=== PATIENT | female | born 1940 | race Caucasian/White ===

== ENCOUNTER 2018-03-13 15:58 | Inpatient (IN) ==
[2018-03-13 17:03] LABS: Hematocrit 39.8 % (35.3-44.9); Hemoglobin 13.5 g/dL (11.5-15.4); Mean Corpuscular HGB Conc 33.9 g/dL (31.6-35.5); Mean Corpuscular Hemoglobin 28.1 pg (28.0-33.3); Mean Corpuscular Volume 82.7 fL (83.0-100.0); Mean Platelet Volume 10.5 fL (9.4-12.4); Platelet Count 223 K/mcL (140-400); Red Blood Count 4.81 M/mcL (3.82-4.97); Red Cell Distribution Width 14.1 % (11.5-14.5)
[2018-03-13 17:28] LABS: Alanine Aminotransferase 14 Units/L (7-52); Albumin/Globulin Ratio 1.2 (1.1-2.2); Alkaline Phosphatase 81 Units/L (34-104); Aspartate Amino Transferase 29 Units/L (13-39); BUN/Creatinine Ratio 28 (6-26); Bilirubin,Direct 0.5 mg/dL (0.0-0.2); Bilirubin,Indirect 1.2 mg/dL (0.0-1.2); Bilirubin,Total 1.7 mg/dL (0.3-1.0); Blood Urea Nitrogen 22 mg/dL (8-23); Carbon Dioxide 30 mEq/L (23-29); Chloride 93 mEq/L (98-107); Globulin 3.4 g/dL (2.4-3.5); Glucose 127 mg/dL (70-105); Lipase 8 Units/L (11-82); Osmolality,Calculated 279 (280-300); Potassium 2.7 mEq/L (3.5-5.1); Sodium 132 mEq/L (136-145); Total Protein 7.4 g/dL (6.4-8.9); eGFR For African Americans > 60 (> 60); eGFR For Non-African Americans > 60 (> 60)
[2018-03-13] MEDS ORDERED: Pantoprazole 40 MG VIAL IVP ONE (17:40)
--- NOTE | 2018-03-13 17:43 | Emergency Department Note ---
Disposition Clinical Impression: Hypokalemia, Acute cholecystitis Leukocytosis Qualifiers: Leukocytosis type: unspecified Qualified Code(s): D72.829 - Elevated white blood cell count, unspecified Disposition: Admitted As Inpatient Condition: Fair Referrals: Laura Pratt DO [Primary Care Provider] - Forms: ED Satisfaction Letter Time of Disposition: 18:51 GI Bleed HPI - General Chief complaint: ED GI Bleed Stated complaint: ABD Pain/Dark Stool Time Seen by Provider: 03/13/18 17:29 Source: patient, family Mode of arrival: ambulatory Limitations: no limitations Nursing Notes Reviewed: Yes Vital Signs Reviewed: Yes - History of Present Illness HPI Narrative: Patient describes epigastric abdominal pain, nausea, vomiting and now a dark stool this morning. No history of GI bleed. Takes no anticoagulants. Seen by PCP yesterday Pt Subjective Complaint: melena Onset (ago): day(s) Consistency: intermittent Associated symptoms: Reports: abdominal pain, nausea, vomiting, loss of appetite Treatments Prior to Arrival: none (Zofran prescribed by primary care provider) - Related Data Allergies Allergy/AdvReac Type Severity Reaction Status Date / Time No Known Allergies Allergy Verified 03/13/18 16:10 All systems ED: reviewed and negative except as stated. Constitutional: Reports: other (Loss of appetite) Eyes: Reports: as per HPI ENT ED: Reports: as per HPI Cardiovascular: Reports: as per HPI Respiratory: Reports: as per HPI Gastrointestinal: Reports: abdominal pain, nausea, vomiting, melena Genitourinary: Reports: as per HPI Musculoskeletal: Reports: as per HPI Integumentary: Reports: as per HPI Neurological: Reports: as per HPI Psychiatric: Reports: as per HPI Endocrine: Reports: as per HPI Hematological/Lymphatic: Reports: as per HPI Allergic/Immunologic: Reports: as per HPI Past Medical History - Past Medical History Source: patient Medical history: Reports: arthritis, hypertension Psychiatric history: Reports: anxiety, depression - Social History Smoking Status: Never smoker Alcohol use: Reports: none Drug use: Reports: none Physical Exam - General Limitations: no limitations General appearance: alert, in no apparent distress - Head Head exam: atraumatic - Eye Eye exam: Present: normal appearance - ENT ENT exam: normal exam - Neck Neck exam: Present: normal inspection - Chest Chest inspection: Present: normal inspection, symmetric chest wall rise - Respiratory Respiratory exam: Present: normal lung sounds bilaterally - Cardiovascular Cardiovascular exam: Present: regular rate, normal rhythm, normal heart sounds - Abdominal Exam Abdominal exam: Present: soft, tenderness (Suprapubic discomfort), normal bowel sounds - Rectal Exam Triage Registered Nurse present during exam: Yes Rectal exam: Present: normal inspection, normal rectal tone, heme (+) stool, black stool - Extremities Exam Extremities exam: Present: normal inspection - Neurological Exam Neurological exam: Present: alert, oriented X3, CN II-XII intact - Psychiatric Psychiatric exam: Present: normal affect, normal mood - Skin Skin exam: Present: warm, dry, intact Course Course Narrative: Patient presents with a dark melanotic stool and abdominal pain. I favor an upper GI bleed. She does have a leukocytosis which prompts urinalysis investigation as well as a CT scan of her abdomen and pelvis. IV Protonix ordered. She will likely require admission - Reevaluation(s) Reevaluation #1: abnormal CT. GB US ordered Reevaluation #2: Patient fecal occult negative. She now admits to taking Pepto-Bismol yesterday - Consultations Consultation #1: Case discussed with Dr. Kirkland, surgery on-call Vital Signs Temperature 97.6 F 03/13/18 16:06 Pulse Rate 81 03/13/18 16:06 Respiratory Rate 15 03/13/18 16:06 Blood Pressure 114/66 03/13/18 16:06 O2 Sat by Pulse Oximetry 94 03/13/18 16:06 Temperature 97.6 F 03/13/18 17:31 Pulse Rate 81 03/13/18 17:31 Respiratory Rate 15 03/13/18 17:31 Blood Pressure 114/66 03/13/18 17:31 O2 Sat by Pulse Oximetry 94 03/13/18 17:31 Oxygen Delivery Oxygen Delivery Room Air GI Bleed - Lab Data Lab results reviewed: Yes I reviewed the patient's lab results. Result diagrams: 03/13/18 16:57 03/13/18 16:57 Lab Results 03/13/18 03/13/18 03/13/18 Range/Units 16:57 16:57 17:51 WBC 25.0 H (4.3-11.1) K/mcL RBC 4.81 (3.82-4.97) M/mcL Hgb 13.5 (11.5-15.4) g/dL Hct 39.8 (35.3-44.9) % MCV 82.7 L (83.0-100.0) fL MCH 28.1 (28.0-33.3) pg MCHC 33.9 (31.6-35.5) g/dL RDW 14.1 (11.5-14.5) % Plt Count 223 (140-400) K/mcL MPV 10.5 (9.4-12.4) fL PT (9.4-12.1) Seconds INR Sodium 132 L (136-145) mEq/L Potassium 2.7 L (3.5-5.1) mEq/L Chloride 93 L (98-107) mEq/L Carbon Dioxide 30 H (23-29) mEq/L BUN 22 (8-23) mg/dL Creatinine 0.79 (0.60-1.20) mg/dL Est GFR ( Amer) > 60 (> 60) Est GFR (Non-Af Amer) > 60 (> 60) BUN/Creatinine Ratio 28 H (6-26) Glucose 127 H (70-105) mg/dL Calculated Osmolality 279 L (280-300) Calcium 10.0 (8.6-10.3) mg/dL Magnesium 1.8 (1.6-2.6) mg/dL Total Bilirubin 1.7 H (0.3-1.0) mg/dL Direct Bilirubin 0.5 H (0.0-0.2) mg/dL Indirect Bilirubin 1.2 (0.0-1.2) mg/dL AST 29 (13-39) Units/L ALT 14 (7-52) Units/L Alkaline Phosphatase 81 (34-104) Units/L Serum Total Protein 7.4 (6.4-8.9) g/dL Albumin 4.0 (3.5-5.7) g/dL Globulin 3.4 (2.4-3.5) g/dL Albumin/Globulin Ratio 1.2 (1.1-2.2) Lipase 8 L (11-82) Units/L Urine Color (Yellow) Urine Clarity (Clear) Urine pH (5.0-8.0) pH Units Ur Specific [place] (1.010-1.025) Urine Protein (Neg-Trace) mg/dL Urine Glucose (UA) (Normal) mg/dL Urine Ketones (Negative) mg/dL Urine Blood (Negative) Urine Nitrite (Negative) Urine Bilirubin (Negative) Urine Urobilinogen (Normal) mg/dL Ur Leukocyte Esterase (Negative) Urine Microscopic WBC (0-3) per hpf Ur Squamous Epith Cells (None-Few) per lpf Urine Bacteria (None-Few) per hpf Urine Mucus (Few) Stool Occult Bld Scrn (Negative) Blood Type AB POSITIVE 03/13/18 03/13/18 03/13/18 Range/Units 17:51 18:00 18:36 WBC (4.3-11.1) K/mcL RBC (3.82-4.97) M/mcL Hgb (11.5-15.4) g/dL Hct (35.3-44.9) % MCV (83.0-100.0) fL MCH (28.0-33.3) pg MCHC (31.6-35.5) g/dL RDW (11.5-14.5) % Plt Count (140-400) K/mcL MPV (9.4-12.4) fL PT 23.2 H (9.4-12.1) Seconds INR 2.1 Sodium (136-145) mEq/L Potassium (3.5-5.1) mEq/L Chloride (98-107) mEq/L Carbon Dioxide (23-29) mEq/L BUN (8-23) mg/dL Creatinine (0.60-1.20) mg/dL Est GFR ( Amer) (> 60) Est GFR (Non-Af Amer) (> 60) BUN/Creatinine Ratio (6-26) Glucose (70-105) mg/dL Calculated Osmolality (280-300) Calcium (8.6-10.3) mg/dL Magnesium (1.6-2.6) mg/dL Total Bilirubin (0.3-1.0) mg/dL Direct Bilirubin (0.0-0.2) mg/dL Indirect Bilirubin (0.0-1.2) mg/dL AST (13-39) Units/L ALT (7-52) Units/L Alkaline Phosphatase (34-104) Units/L Serum Total Protein (6.4-8.9) g/dL Albumin (3.5-5.7) g/dL Globulin (2.4-3.5) g/dL Albumin/Globulin Ratio (1.1-2.2) Lipase (11-82) Units/L Urine Color [place] A (Yellow) Urine Clarity Cloudy A (Clear) Urine pH 6.0 (5.0-8.0) pH Units Ur Specific [place] 1.021 (1.010-1.025) Urine Protein 30 H (Neg-Trace) mg/dL Urine Glucose (UA) Normal (Normal) mg/dL Urine Ketones Trace H (Negative) mg/dL Urine Blood Trace H (Negative) Urine Nitrite Negative (Negative) Urine Bilirubin Small H (Negative) Urine Urobilinogen Normal (Normal) mg/dL Ur Leukocyte Esterase Small H (Negative) Urine Microscopic WBC 5-15 H (0-3) per hpf Ur Squamous Epith Cells Many H (None-Few) per lpf Urine Bacteria Moderate H (None-Few) per hpf Urine Mucus Few (Few) Stool Occult Bld Scrn Negative (Negative) Blood Type - Radiology Data Radiology results reviewed: Yes I reviewed the patient's radiology results. - EKG Data EKG attestation: Yes I reviewed and interpreted this EKG. EKG results narrative: Normal sinus rhythm rate 69 by mouth 183 QRS 93 QT/QTc 421/440. No acute ST segment elevation study compared to previous dated 12/03/07
[2018-03-13 18:15] LABS: Bilirubin,Urine Small (Negative); Blood,Urine Trace (Negative); Clarity,Urine Cloudy (Clear); Color,Urine Orange (Yellow); Glucose,Urine (UA) Normal (Normal); Ketones,Urine Trace mg/dL (Negative); Leukocyte Esterase,Urine Small (Negative); Nitrite,Urine Negative (Negative); Protein,Urine 30 mg/dL (Neg-Trace); Specific Gravity,Urine 1.021 (1.010-1.025); Urobilinogen,Urine Normal (Normal)
[2018-03-13 18:17] LABS: Squamous Epithelial Cell,Urine Many per lpf (None-Few)
[2018-03-13 18:18] LABS: Magnesium 1.8 mg/dL (1.6-2.6)
[2018-03-13 18:23] LABS: INR 2.1; Prothrombin Time 23.2 Seconds (9.4-12.1)
[2018-03-13 18:49] LABS: Bacteria,Urine Moderate per hpf (None-Few); Mucus,Urine Few (Few)
--- NOTE | 2018-03-13 20:18 | Internal Med History&Physical ---
<Mary Bates - Last Filed: 03/13/18 20:10> Date of Encounter: 03/13/18 Time of Encounter: 20:10 Internal Medicine - H&P: HPI Chief complaint: abdominal pain Admitted From: Home Plans for Post Hospital Care: Home History of present illness: Ms. 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 On Saturday, patient began having N/V and thought this was due to food poisoning but she has been unable to eat since Saturday. She admits to having a dark tarry stool this morning but did take pepto-bismol yesterday. She denies hematemesis, hematochezia, dietary diarrhea, constipation , fevers, weakness, rash, or dizziness. In the ED, US showed cholelithiasis and acute cholecystitis. Dr. Kirkland was consulted and patient admitted to the floor. Past Med Surg Social Fam HX - Past Medical History Source: patient, old records reviewed Medical history: arthritis, DVT (brachial vein on Xarelto ), hypertension, thyroid disease, other (Alzheimers ) Psychiatric history: anxiety, depression - Past Surgical History Surgical History: hysterectomy, knee replacement - Social History Smoking Status: Former smoker Alcohol use: none Drug use: none - Family History Sister Hx Family Reproductive Disorders: Yes (breast CA) Internal Medicine - H&P: Meds Fluticasone Propionate Nasal [Flonase] 1 puff NS DAILY 03/13/18 [History] Imiquimod [Zyclara] 1 appl TP DAILY 03/13/18 [History] Levothyroxine [[place]throid] [place] [address]/13/18 [History] Montelukast [Singulair] 10 mg PO DAILY 03/13/18 [History] Omeprazole [PriLOSEC] 40 mg PO DAILY 03/13/18 [History] Ondansetron ODT [Zofran ODT] 4 mg SL Q4HR PRN 03/13/18 [History] Rivaroxaban [Xarelto] 20 mg PO DAILY 03/13/18 [History] Sertraline [Zoloft] 150 mg PO DAILY 03/13/18 [History] hydroCHLOROthiazide [Hydrochlorothiazide] 25 mg PO DAILY 03/13/18 [History] 3 Allergy/AdvReac Type Severity Reaction Status Date / Time No Known Allergies Allergy Verified 03/13/18 19:10 All Systems PM: A 10-system review of systems was performed and is negative for pertinent findings except as documented above in the HPI. - Constitutional Vitals: Temp Pulse Resp BP Pulse Ox 97.6 F 76 18 132/58 97 03/13/18 17:31 03/13/18 20:06 03/13/18 20:06 03/13/18 20:06 03/13/18 20:06 Exam: Constitutional: Alert, no acute distress Head: Normocephalic, atraumatic, normal contour and symmetric, no masses, lesions or scars Heart: Normal, regular rate and rhythm, no murmurs Lungs: Clear to auscultation, no wheezes, rales, or rhonchi Abdomen: tenderness in the left lower quadrant and right upper quadrant, negative severino's sign, Soft, nondistended, and no masses palpable, bowel sounds present and normal, no guarding or rigidity. Extremities: No clubbing, cyanosis, or edema, radial pulse +2/4, capillary refill <2sec. Skin: Skin warm and dry, no lesions, no rashes, no jaundice Neurologic: no focal deficits, strength within normal limits in all extremities Psych: Cooperative with exam, cognitive function is decreases as she seems confused in remembering details of the last couple of days looking to her frequently to talk, good eye contact, , speech clear, Internal Med - H&P Results - Labs CBC & Chem 7: 03/13/18 16:57 03/13/18 16:57 Labs: Short CBC 03/13/18 Range/Units 16:57 WBC 25.0 H (4.3-11.1) K/mcL Hgb 13.5 (11.5-15.4) g/dL Hct 39.8 (35.3-44.9) % Plt Count 223 (140-400) K/mcL BMP 03/13/18 16:57 Sodium 132 L Potassium 2.7 L Chloride 93 L Carbon Dioxide 30 H BUN 22 Creatinine 0.79 Glucose 127 H Calcium 10.0 Liver Function 03/13/18 Range/Units 16:57 Total Bilirubin 1.7 H (0.3-1.0) mg/dL Direct Bilirubin 0.5 H (0.0-0.2) mg/dL AST 29 (13-39) Units/L ALT 14 (7-52) Units/L Alkaline Phosphatase 81 (34-104) Units/L Albumin 4.0 (3.5-5.7) g/dL Urine 03/13/18 Range/Units 18:00 Urine Color [place] A (Yellow) Urine Clarity Cloudy A (Clear) Urine pH 6.0 (5.0-8.0) pH Units Ur Specific [place] 1.021 (1.010-1.025) Urine Protein 30 H (Neg-Trace) mg/dL Urine Glucose (UA) Normal (Normal) mg/dL - Impressions ITS Impressions Abdomen/Pelvis CT 03/13/18 17:41 IMPRESSION: 1. Diffuse gallbladder wall thickening and pericholecystic stranding with a small 3 mm stone possibly within the cystic duct. Findings raise the possibility of acute cholecystitis and if clinically indicated further evaluation could be obtained with right upper quadrant ultrasound. No biliary ductal dilatation identified. There are several smaller nearby calculi that may also be within the biliary tree and if clinically indicated further evaluation could be obtained with MRCP. 2. Questionable wall thickening of the proximal duodenum that may be secondary to acute cholecystitis. Alternatively, peptic ulcer disease is not excluded. No evidence of perforation. 3. Colonic diverticulosis. 4. Status post hysterectomy. 5. Trace volume of likely reactive free fluid in the pelvis. D/ / Ervin Valero MD / Ervin Valero MD Interpreting Provider: Ervin Valero MD Gallbladder Ultrasound 03/13/18 18:34 IMPRESSION: Cholelithiasis and acute cholecystitis D/ / Tal Haynes MD / Tal Haynes MD Interpreting Provider: Tal Haynes MD - Assessment and plan (1) Acute cholecystitis Current Visit: Yes Status: Acute Assessment and plan: N/V for the 4 days, unable to eat without N/V. Elevated WBC = 24. US shows Cholelithiasis and gallbladder wall is thickened measuring 0.86 cm with pericholecystic fluid. Marita consulted. Patient's last dose of Xarelto yesterday evening. Will start Heparin drip tonight. Plan: - Surgery consulted - Begin Cipro and Flagyl - Xarelto stopped, Heparin drip started - Diet: NPO (2) Hypokalemia Current Visit: Yes Status: Acute Assessment and plan: Low potassium likely 2/2 vomiting. K= 2.7. Replaced 20meq in the ED will continue to replace with KCl 80meq IV. Should increase potassium to about 3.7. (3) Hyponatremia Current Visit: Yes Status: Acute Assessment and plan: Most likely 2/2 to dehydration. Will start maintenance fluid of D5 1/2NS at 100ml/hr. (4) Hx of deep venous thrombosis Current Visit: Yes Status: Acute Assessment and plan: Brachial vein on Xarelto. Holding Xarelto for surgery. (5) DVT prophylaxis Current Visit: Yes Status: Acute Assessment and plan: Heparin drip (6) Alzheimer disease Current Visit: Yes Status: Acute Assessment and plan: Patient's family says she is already agitated about being here. Will place order for Haldol 1mg IV Q6H prn for agitation. Qualifiers: Alzheimer's disease onset: unspecified onset Dementia behavioral disturbance: with behavioral disturbance Qualified Code(s): G30.9 - Alzheimer' s disease, unspecified; F02.81 - Dementia in other diseases classified elsewhere with behavioral disturbance - Time Spent With Patient Total time spent is greater than 50% in coordination of care (as documented) at patient's floor/unit and/or counseling patient: <Marguerite Cadet - Last Filed: 03/14/18 01:01> Date of Encounter: 03/14/18 Internal Medicine - H&P: HPI History of present illness: Ms. Walden is a 77 year old female All Systems PM: A 10-system review of systems was performed and is negative for pertinent findings except as documented above in the HPI. - Constitutional Vitals: Temp Pulse Resp BP Pulse Ox 98.3 F 71 16 111/69 94 03/14/18 00:45 03/14/18 00:45 03/14/18 00:45 03/14/18 00:45 03/14/18 00:45 Internal Med - H&P Results - Labs CBC & Chem 7: 03/13/18 16:57 03/13/18 16:57 - Attending Attestation I have seen and examined this patient independently. I have discussed with the resident physician Dr. Bates regarding the management plan. Agree with the documentation. 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 Will cont hold xarelto for surgery, bridged with heparin drip now. - Assessment and plan (1) Acute cholecystitis Current Visit: Yes Status: Acute (2) Hypokalemia Current Visit: Yes Status: Acute (3) Hyponatremia Current Visit: Yes Status: Acute (4) Hx of deep venous thrombosis Current Visit: Yes Status: Acute (5) DVT prophylaxis Current Visit: Yes Status: Acute (6) Alzheimer disease Current Visit: Yes Status: Acute Qualifiers: Alzheimer's disease onset: unspecified onset Dementia behavioral disturbance: with behavioral disturbance Qualified Code(s): G30.9 - Alzheimer' s disease, unspecified; F02.81 - Dementia in other diseases classified elsewhere with behavioral disturbance - Time Spent With Patient Total time spent is greater than 50% in coordination of care (as documented) at patient's floor/unit and/or counseling patient:
[2018-03-13] MEDS ORDERED: *HR* Heparin 5,000 UNIT/ML VIAL IVP ONE (20:19)
[2018-03-13] MEDS ORDERED: *HR* Heparin 5,000 UNIT/ML VIAL IVP PRN (20:19)
[2018-03-13] MEDS ORDERED: Naloxone 0.4 MG/ML INJ IVP PRN (20:20)
[2018-03-13] MEDS ORDERED: Acetaminophen 325 MG TABLET PO PRN (20:20)
[2018-03-13] MEDS ORDERED: traMADol 50 MG TABLET PO PRN (20:20)
[2018-03-13] MEDS ORDERED: Haloperidol Lactate 5 MG/ML VIAL IVP PRN (20:26)
[2018-03-13] MEDS ORDERED: POTASSIUM CHLORIDE IVPB ONE (20:33)
[2018-03-13] MEDS ORDERED: D5 IVPB ONE (20:33)
[2018-03-13] MEDS ORDERED: LIDOCAINE 1% IVPB ONE (20:33)
[2018-03-13] MEDS ORDERED: WATER IVPB ONE (20:33)
[2018-03-13] MEDS: Potassium Chloride 40 MEQ, Lidocaine 1% 2 ML in D5% in Water 500 ML IVPB SCH (23:11)
[2018-03-13] MEDS: Heparin 25,000 UNIT/500 ML D5W 25,000 UNIT/500 ML BAG IVC SCH (23:12)
[2018-03-13] MEDS: MetroNIDAZOLE 500 MG/100 ML 500 MG/100 ML BAG IVPB SCH (23:13)
[2018-03-14 01:53] LABS: Basophils # 0.1 K/mcL (0.0-0.2); Basophils % 0.2 %; Hematocrit 35.2 % (35.3-44.9); Lymphocytes # 1.5 K/mcL (0.6-4.6); Lymphocytes % 7.1 %; Mean Corpuscular Volume 84.8 fL (83.0-100.0); Mean Platelet Volume 10.9 fL (9.4-12.4); Monocytes # 1.1 K/mcL (0.0-1.3); Monocytes % 5.2 %; Neutrophils # 18.2 K/mcL (1.6-8.9); Platelet Count 191 K/mcL (140-400); Red Blood Count 4.15 M/mcL (3.82-4.97); Red Cell Distribution Width 13.8 % (11.5-14.5); Segmented Neutrophils % 85.5 %
[2018-03-14 01:54] LABS: Hemoglobin 11.6 g/dL (11.5-15.4)
[2018-03-14 02:15] LABS: BUN/Creatinine Ratio 30 (6-26); Blood Urea Nitrogen 20 mg/dL (8-23); Carbon Dioxide 28 mEq/L (23-29); Chloride 95 mEq/L (98-107); Glucose 191 mg/dL (70-105); Magnesium 1.9 mg/dL (1.6-2.6); Osmolality,Calculated 282 (280-300); Phosphorous 2.7 mg/dL (2.7-4.5); Potassium 2.7 mEq/L (3.5-5.1); Sodium 132 mEq/L (136-145); eGFR For African Americans > 60 (> 60); eGFR For Non-African Americans > 60 (> 60)
[2018-03-14] MEDS: Potassium Chloride 40 MEQ, Lidocaine 1% 2 ML in D5% in Water 500 ML IVPB SCH (04:41)
[2018-03-14] MEDS: D5% in 0.45% NACL 1,000 ML IVC SCH ×2 (04:52→15:16)
[2018-03-14] MEDS: *HR* Heparin 5,000 UNIT/ML VIAL IVP PRN ×2 (07:25→17:55)
[2018-03-14] MEDS: Ondansetron 4 MG/2 ML VIAL IVP PRN ×2 (08:49→22:48)
[2018-03-14] MEDS: Pantoprazole 40 MG VIAL IVP SCH (08:49)
--- NOTE | 2018-03-14 09:48 | General Surgery Consult Note ---
<Vinod Bermudez Nadine - Last Filed: 03/14/18 14:41> Date of Encounter: 03/14/18 Time of Encounter: 06:50 Assessment and Plan (1) Acute cholecystitis Current Visit: Yes Status: Acute CT and U/S confirmation: sludge and gallstones within the gallbladder. Gallbladder wall is thickened measuring 0.86 cm. + pericholecystic fluid. Leukocytosis improving, but may partially be dilutional Pain responding to medication Hemoccult negative Increased Bilirubin - common bile duct 0.63cm (within normal limits) - will recheck Hepatic function INR 2.1 on admission for unknown reason - recheck 1.6 PLAN: Continue antibiotics, pain, and nausea medications Continue heparin drip - and holding Xarelto Continue to monitor symptoms - possible cholecystectomy in the upcoming days AM labs (2) Hypokalemia Current Visit: Yes Status: Acute Replace and monitor (3) Hx of deep venous thrombosis Current Visit: Yes Status: Acute Hold Xarelto - continue heparin drip History of Present Illness Consult date: 03/13/18 Reason for consult: other (acute cholecystitis) Requesting physician: Leandro Post History of present illness: 77 year old female with PMH of hypothyroidism, HTN, Alzheimer's, and 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 She began having epigastric abdominal pain 4 days ago. Associated symptoms include N/V, and decreased PO intake. She does report one episode of dark stool, but did take Pepto Bismol prior to that. Denies fevers, chills, chest pain, dyspnea, hematemesis, hematochezia, constipation, or diarrhea. No prior abdominal surgeries. Both CT and U/S are consistent with acute cholecystitis. Past Med Surg Social Fam HX - Past Medical History Medical history: arthritis, DVT, hypertension, thyroid disease, other Additional medical history: Alzheimer's Psychiatric history: anxiety, depression - Past Surgical History Surgical History: hysterectomy, knee replacement - Social History Smoking Status: Former smoker Alcohol use: none Drug use: none - Family History Sister Hx Family Reproductive Disorders: Yes (breast CA) Medications and Allergies Fluticasone Propionate Nasal [Flonase] 1 puff NS DAILY 03/13/18 [History] Imiquimod [Zyclara] 1 appl TP DAILY 03/13/18 [History] Levothyroxine [Synthroid] 50 mcg PO 0630 03/13/18 [History] Montelukast [Singulair] 10 mg PO DAILY 03/13/18 [History] Omeprazole [PriLOSEC] 40 mg PO DAILY 03/13/18 [History] Ondansetron ODT [Zofran ODT] 4 mg SL Q4HR PRN 03/13/18 [History] Rivaroxaban [Xarelto] 20 mg PO DAILY 03/13/18 [History] Sertraline [Zoloft] 150 mg PO DAILY 03/13/18 [History] hydroCHLOROthiazide [Hydrochlorothiazide] 25 mg PO DAILY 03/13/18 [History] 3 Allergy/AdvReac Type Severity Reaction Status Date / Time No Known Allergies Allergy Verified 03/13/18 19:10 Review of Systems All systems PM: reviewed and no additional remarkable complaints except as stated All systems PM: The remainder of the systems were reviewed and are negative General Surgery Exam Initial Vital Signs Temp Pulse Resp BP Pulse Ox 97.6 F 81 15 114/66 94 03/13/18 16:06 03/13/18 16:06 03/13/18 16:03/13/18 16:03/13/18 16:06 - General physical appearance well developed, well nourished, no distress - Eyes normal ocular movement. negative: icteric - Respiratory normal expansion, normal respiratory effort, clear to auscultation - Cardiovascular Cardiovascular exam: Present: RRR, no murmurs/rubs/gallops. Absent: JVD - Abdomen Abdomen general surgery: Present: bowel sounds present, soft, tender ( epigastric and RUQ). Absent: distended, rebound, rigid - Integumentary Integumentary general surgery: Present: warm and dry, no abnormal pigmentation - Neurologic Present: CN 2-12 grossly intact, normal coordination - Psychiatric Psychiatric general surgery: Present: A&Ox3 Exam Initial Vital Signs Temp Pulse Resp BP Pulse Ox 97.6 F 81 15 114/66 94 03/13/18 16:06 03/13/18 16:06 03/13/18 16:06 03/13/18 16:03/13/18 16:06 Results - Labs 03/14/18 01:23 03/14/18 01:23 Abnormal lab results WBC 21.3 K/mcL (4.3-11.1) H 03/14/18 01:23 Hct 35.2 % (35.3-44.9) L 03/14/18 01:23 Neutrophils # 18.2 K/mcL (1.6-8.9) H 03/14/18 01:23 PT 23.2 Seconds (9.4-12.1) H 03/13/18 17:51 APTT 49.6 Seconds (26.0-36.0) H D 03/14/18 06:19 Sodium 132 mEq/L (136-145) L 03/14/18 01:23 Potassium 2.7 mEq/L (3.5-5.1) L 03/14/18 01:23 Chloride 95 mEq/L (98-107) L 03/14/18 01:23 BUN/Creatinine Ratio 30 (6-26) H 03/14/18 01:23 Glucose 191 mg/dL (70-105) H 03/14/18 01:23 Total Bilirubin 1.7 mg/dL (0.3-1.0) H 03/13/18 16:57 Direct Bilirubin 0.5 mg/dL (0.0-0.2) H 03/13/18 16:57 Lipase 8 Units/L (11-82) L 03/13/18 16:57 Urine Color [place] (Yellow) A 03/13/18 18:00 Urine Clarity Cloudy (Clear) A 03/13/18 18:00 Urine Protein 30 mg/dL (Neg-Trace) H 03/13/18 18:00 Urine Ketones Trace mg/dL (Negative) H 03/13/18 18:00 Urine Blood Trace (Negative) H 03/13/18 18:00 Urine Bilirubin Small (Negative) H 03/13/18 18:00 Ur Leukocyte Esterase Small (Negative) H 03/13/18 18:00 Urine Microscopic WBC 5-15 per hpf (0-3) H 03/13/18 18:00 Ur Squamous Epith Cells Many per lpf (None-Few) H 03/13/18 18:00 Urine Bacteria Moderate per hpf (None-Few) H 03/13/18 18:00 Diabetes panel 03/14/18 Range/Units 01:23 Sodium 132 L (136-145) mEq/L Potassium 2.7 L (3.5-5.1) mEq/L Chloride 95 L (98-107) mEq/L Carbon Dioxide 28 (23-29) mEq/L BUN 20 (8-23) mg/dL Creatinine 0.66 (0.60-1.20) mg/dL Glucose 191 H (70-105) mg/dL Calcium 9.0 (8.6-10.3) mg/dL Calcium panel 03/14/18 Range/Units 01:23 Calcium 9.0 (8.6-10.3) mg/dL Phosphorus 2.7 (2.7-4.5) mg/dL Pituitary panel 03/14/18 Range/Units 01:23 Sodium 132 L (136-145) mEq/L Potassium 2.7 L (3.5-5.1) mEq/L Chloride 95 L (98-107) mEq/L Carbon Dioxide 28 (23-29) mEq/L BUN 20 (8-23) mg/dL Creatinine 0.66 (0.60-1.20) mg/dL Glucose 191 H (70-105) mg/dL Calcium 9.0 (8.6-10.3) mg/dL Adrenal panel 03/14/18 Range/Units 01:23 Sodium 132 L (136-145) mEq/L Potassium 2.7 L (3.5-5.1) mEq/L Chloride 95 L (98-107) mEq/L Carbon Dioxide 28 (23-29) mEq/L BUN 20 (8-23) mg/dL Creatinine 0.66 (0.60-1.20) mg/dL Glucose 191 H (70-105) mg/dL Calcium 9.0 (8.6-10.3) mg/dL All other labs normal. Consult Discharge Plan - Plan Referrals: Laura Pratt, [Primary Care Provider] - <Milton Spain - Last Filed: 03/15/18 09:20> Date of Encounter: 03/14/18 Assessment and Plan (1) Acute cholecystitis Current Visit: Yes Status: Acute Review of Systems All systems PM: The remainder of the systems were reviewed and are negative General Surgery Exam Initial Vital Signs Temp Pulse Resp BP Pulse Ox 97.6 F 81 15 114/66 94 03/13/18 16:06 03/13/18 16:06 03/13/18 16:06 03/13/18 16:06 03/13/18 16:06 Exam Initial Vital Signs Temp Pulse Resp BP Pulse Ox 97.6 F 81 15 114/66 94 03/13/18 16:06 03/13/18 16:06 03/13/18 16:06 03/13/18 16:06 03/13/18 16:06 Results - Labs 03/15/18 00:26 03/15/18 00:26 Abnormal lab results WBC 19.8 K/mcL (4.3-11.1) H 03/15/18 00:26 Hgb 11.2 g/dL (11.5-15.4) L 03/15/18 00:26 Hct 33.6 % (35.3-44.9) L 03/15/18 00:26 MCH 27.9 pg (28.0-33.3) L 03/15/18 00:26 Neutrophils # 17.1 K/mcL (1.6-8.9) H 03/15/18 00:26 PT 17.0 Seconds (9.4-12.1) H 03/14/18 10:56 APTT 109.1 Seconds (26.0-36.0) H D 03/15/18 06:28 Sodium 130 mEq/L (136-145) L 03/15/18 00:26 Potassium 2.9 mEq/L (3.5-5.1) L 03/15/18 00:26 Chloride 97 mEq/L (98-107) L 03/15/18 00:26 Creatinine 0.56 mg/dL (0.60-1.20) L 03/15/18 00:26 Glucose 136 mg/dL (70-105) H 03/15/18 00:26 Calculated Osmolality 272 (280-300) L 03/15/18 00:26 Calcium 8.4 mg/dL (8.6-10.3) L 03/15/18 00:26 Direct Bilirubin 0.4 mg/dL (0.0-0.2) H 03/15/18 00:26 Serum Total Protein 5.6 g/dL (6.4-8.9) L 03/15/18 00:26 Albumin 2.9 g/dL (3.5-5.7) L 03/15/18 00:26 Lipase 8 Units/L (11-82) L 03/13/18 16:57 Urine Color [place] (Yellow) A 03/13/18 18:00 Urine Clarity Cloudy (Clear) A 03/13/18 18:00 Urine Protein 30 mg/dL (Neg-Trace) H 03/13/18 18:00 Urine Ketones Trace mg/dL (Negative) H 03/13/18 18:00 Urine Blood Trace (Negative) H 03/13/18 18:00 Urine Bilirubin Small (Negative) H 03/13/18 18:00 Ur Leukocyte Esterase Small (Negative) H 03/13/18 18:00 Urine Microscopic WBC 5-15 per hpf (0-3) H 03/13/18 18:00 Ur Squamous Epith Cells Many per lpf (None-Few) H 03/13/18 18:00 Urine Bacteria Moderate per hpf (None-Few) H 03/13/18 18:00 Diabetes panel 03/14/18 03/14/18 03/15/18 Range/Units 06:19 17:34 00:26 Sodium (136-145) mEq/L Potassium 2.6 L (3.5-5.1) mEq/L Chloride (98-107) mEq/L Carbon Dioxide (23-29) mEq/L BUN (8-23) mg/dL Creatinine (0.60-1.20) mg/dL Glucose (70-105) mg/dL Calcium (8.6-10.3) mg/dL AST 23 18 (13-39) Units/L ALT 11 10 (7-52) Units/L Alkaline Phosphatase 69 74 (34-104) Units/L Albumin 3.3 L 2.9 L (3.5-5.7) g/dL 03/15/18 Range/Units 00:26 Sodium 130 L (136-145) mEq/L Potassium 2.9 L (3.5-5.1) mEq/L Chloride 97 L (98-107) mEq/L Carbon Dioxide 26 (23-29) mEq/L BUN 12 (8-23) mg/dL Creatinine 0.56 L (0.60-1.20) mg/dL Glucose 136 H (70-105) mg/dL Calcium 8.4 L (8.6-10.3) mg/dL AST (13-39) Units/L ALT (7-52) Units/L Alkaline Phosphatase (34-104) Units/L Albumin (3.5-5.7) g/dL Calcium panel 03/14/18 03/15/18 03/15/18 Range/Units 06:19 00:26 00:26 Calcium 8.4 L (8.6-10.3) mg/dL Albumin 3.3 L 2.9 L (3.5-5.7) g/dL Pituitary panel 03/14/18 03/15/18 Range/Units 17:34 00:26 Sodium 130 L (136-145) mEq/L Potassium 2.6 L 2.9 L (3.5-5.1) mEq/L Chloride 97 L (98-107) mEq/L Carbon Dioxide 26 (23-29) mEq/L BUN 12 (8-23) mg/dL Creatinine 0.56 L (0.60-1.20) mg/dL Glucose 136 H (70-105) mg/dL Calcium 8.4 L (8.6-10.3) mg/dL Adrenal panel 03/14/18 03/14/18 03/15/18 Range/Units 06:19 17:34 00:26 Sodium (136-145) mEq/L Potassium 2.6 L (3.5-5.1) mEq/L Chloride (98-107) mEq/L Carbon Dioxide (23-29) mEq/L BUN (8-23) mg/dL Creatinine (0.60-1.20) mg/dL Glucose (70-105) mg/dL Calcium (8.6-10.3) mg/dL Total Bilirubin 1.1 H 1.0 (0.3-1.0) mg/dL AST 23 18 (13-39) Units/L ALT 11 10 (7-52) Units/L Alkaline Phosphatase 69 74 (34-104) Units/L Albumin 3.3 L 2.9 L (3.5-5.7) g/dL 03/15/18 Range/Units 00:26 Sodium 130 L (136-145) mEq/L Potassium 2.9 L (3.5-5.1) mEq/L Chloride 97 L (98-107) mEq/L Carbon Dioxide 26 (23-29) mEq/L BUN 12 (8-23) mg/dL Creatinine 0.56 L (0.60-1.20) mg/dL Glucose 136 H (70-105) mg/dL Calcium 8.4 L (8.6-10.3) mg/dL Total Bilirubin (0.3-1.0) mg/dL AST (13-39) Units/L ALT (7-52) Units/L Alkaline Phosphatase (34-104) Units/L Albumin (3.5-5.7) g/dL All other labs normal. - Attending Attestation I examined this patient and my medical decision-making was reviewed with the Resident Physician. I agree with the documented findings, disposition and treatment plan as described except to the extent set forth below. Reviewed the above assessment and evaluation and agree with the above plan. Patient's been having right upper quadrant epigastric abdominal pain symptoms. Mild tenderness to palpation. No nausea or vomiting. Also shows evidence of cholecystitis. Mild elevation of bilirubin but appears to be decreasing in size and common bile duct was normal diameter by ultrasound. I agree with the above mentioned therapies and we will reevaluate in a.m. for possible laparoscopic cholecystectomy with cholangiogram.
[2018-03-14 11:36] LABS: INR 1.6
[2018-03-14 13:19] LABS: Albumin 3.3 g/dL (3.5-5.7); Albumin/Globulin Ratio 1.2 (1.1-2.2); Bilirubin,Direct 0.4 mg/dL (0.0-0.2); Bilirubin,Indirect 0.7 mg/dL (0.0-1.2); Bilirubin,Total 1.1 mg/dL (0.3-1.0); Globulin 2.7 g/dL (2.4-3.5)
[2018-03-14] MEDS: MetroNIDAZOLE 500 MG/100 ML 500 MG/100 ML BAG IVPB SCH ×3 (15:14→22:48)
--- NOTE | 2018-03-14 17:36 | Internal Med Progress Note ---
Date of Encounter: 03/14/18 Time of Encounter: 17:34 - Assessment and plan (1) Acute cholecystitis Current Visit: Yes Status: Acute (2) Hypokalemia Current Visit: Yes Status: Acute (3) Hyponatremia Current Visit: Yes Status: Acute (4) Hx of deep venous thrombosis Current Visit: Yes Status: Acute (5) DVT prophylaxis Current Visit: Yes Status: Acute (6) Alzheimer disease Current Visit: Yes Status: Acute Qualifiers: Alzheimer's disease onset: unspecified onset Dementia behavioral disturbance: with behavioral disturbance Qualified Code(s): G30.9 - Alzheimer' s disease, unspecified; F02.81 - Dementia in other diseases classified elsewhere with behavioral disturbance (7) Leukocytosis Current Visit: Yes Status: Acute Qualifiers: Leukocytosis type: unspecified Qualified Code(s): D72.829 - Elevated white blood cell count, unspecified (8) Hypokalemia Current Visit: Yes Status: Acute - Time Spent With Patient Plan Will change ciprofloxacin to Levaquin, close monitoring patient condition check lactic acid and blood culture, check potassium his stat replaced as needed. Possible surgery next a.m. awaiting final surgery input , continue heparin for now, check INR next morning 25 - 35 minutes - Subjective Interval history: Rt Uq pain Patient stated her pain is much better compared to yesterday. Patient denies any vomiting. Patient had 2 bowel movement today. Had fever 101.9 - Constitutional Vitals: Temp Pulse Resp BP Pulse Ox 101.9 F H 72 15 139/74 95 03/14/18 15:31 03/14/18 15:31 03/14/18 15:31 03/14/18 15:31 03/14/18 15:31 - Respiratory Respiratory exam: Present: CTAB. Absent: accessory muscle use, rales, rhonchi, wheezes - Cardiovascular Cardiovascular exam: Present: RRR, +S1, +S2. Absent: diastolic murmur, gallop, rubs, systolic murmur - GI/Abdominal GI/Abdominal exam: Present: diminished bowel sounds, soft. Absent: tenderness ( Right upper quadrant tenderness) - Extremities Exam Extremities exam: Present: warm, radial pulses palpable and symmetrical. Absent : calf tenderness, cyanotic, pedal edema Internal Medicine: Result - Labs CBC & Chem 7: 03/14/18 01:23 03/14/18 01:23 Labs: Short CBC 03/14/18 Range/Units 01:23 WBC 21.3 H (4.3-11.1) K/mcL Hgb 11.6 D (11.5-15.4) g/dL Hct 35.2 L (35.3-44.9) % Plt Count 191 (140-400) K/mcL Neutrophils # 18.2 H (1.6-8.9) K/mcL BMP 03/14/18 01:23 Sodium 132 L Potassium 2.7 L Chloride 95 L Carbon Dioxide 28 BUN 20 Creatinine 0.66 Glucose 191 H Calcium 9.0 Liver Function 03/14/18 Range/Units 06:19 Total Bilirubin 1.1 H (0.3-1.0) mg/dL Direct Bilirubin 0.4 H (0.0-0.2) mg/dL AST 23 (13-39) Units/L ALT 11 (7-52) Units/L Alkaline Phosphatase 69 (34-104) Units/L Albumin 3.3 L (3.5-5.7) g/dL - ABG Interpretation ABG results: PT/INR, D-dimer PT 17.0 Seconds (9.4-12.1) H 03/14/18 10:56 Consult Discharge Plan - Plan Referrals: Laura Pratt DO [Primary Care Provider] -
--- NOTE | 2018-03-14 17:44 | Electrocardiograph Report ---
[address] [place] [address] Test Date: 2018-03-13 Pat Name: Estela Walden Department: 104 Room: BANNER Gender: F Opal Miner: : 1940 Requested By: Leandro Post Order Number: [id number] Reading MD: Isaiah Alicea Measurements Intervals [place] Rate: 69 P: 32 MN: 183 QRS: 9 QRSD: 93 T: 20 QT: 421 QTc: 440 Interpretive Statements SINUS RHYTHM Electronically Signed On 03-14-2018 17:42:07 EDT by Isaiah Alicea
[2018-03-14] MEDS: Heparin 25,000 UNIT/500 ML D5W 25,000 UNIT/500 ML BAG IVC SCH (17:48)
[2018-03-14] MEDS ORDERED: Levofloxacin 500 MG/100 ML 500 MG/100 ML BAG IVPB SCH (18:00)
[2018-03-14] MEDS: Potassium Chloride 40 MEQ in D5% in 0.45% NACL 1,000 ML IVC SCH (18:35)
[2018-03-15 00:37] LABS: Basophils % 0.2 %; Eosinophils % 0.1 %; Hematocrit 33.6 % (35.3-44.9); Hemoglobin 11.2 g/dL (11.5-15.4); Immature Granulocytes % 2.2 % (0-4); Lymphocytes # 0.9 K/mcL (0.6-4.6); Lymphocytes % 4.4 %; Mean Corpuscular HGB Conc 33.3 g/dL (31.6-35.5); Mean Corpuscular Hemoglobin 27.9 pg (28.0-33.3); Mean Corpuscular Volume 83.6 fL (83.0-100.0); Mean Platelet Volume 10.1 fL (9.4-12.4); Monocytes # 1.3 K/mcL (0.0-1.3); Monocytes % 6.7 %; Neutrophils # 17.1 K/mcL (1.6-8.9); Platelet Count 193 K/mcL (140-400); Red Blood Count 4.02 M/mcL (3.82-4.97); Red Cell Distribution Width 13.8 % (11.5-14.5); Segmented Neutrophils % 86.4 %
[2018-03-15 01:03] LABS: Albumin 2.9 g/dL (3.5-5.7); Albumin/Globulin Ratio 1.1 (1.1-2.2); BUN/Creatinine Ratio 21 (6-26); Bilirubin,Direct 0.4 mg/dL (0.0-0.2); Bilirubin,Indirect 0.6 mg/dL (0.0-1.2); Blood Urea Nitrogen 12 mg/dL (8-23); Calcium 8.4 mg/dL (8.6-10.3); Carbon Dioxide 26 mEq/L (23-29); Chloride 97 mEq/L (98-107); Globulin 2.7 g/dL (2.4-3.5); Glucose 136 mg/dL (70-105); Osmolality,Calculated 272 (280-300); Potassium 2.9 mEq/L (3.5-5.1); Sodium 130 mEq/L (136-145); Total Protein 5.6 g/dL (6.4-8.9); eGFR For African Americans > 60 (> 60); eGFR For Non-African Americans > 60 (> 60)
--- NOTE | 2018-03-15 07:11 | General Surgery Progress Note ---
Date of Encounter: 03/15/18 Time of Encounter: 07:09 - Assessment and Plan (1) Acute cholecystitis Current Visit: Yes Status: Acute We will proceed with a laparoscopic cholecystectomy with intraoperative cholangiogram. Patient and family already aware of the risks and benefits. Will ask the staff to stop the heparin gtt at 11am. Subjective Patient reports: other (Patient states that her pain is not that great. No nausea or vomiting.) Objective Vital Signs - Last 8 Hours Temp Pulse Resp BP Pulse Ox 03/15/18 07:02 99.8 F H 87 17 119/69 93 03/15/18 04:09 99.8 F H 87 16 111/63 96 03/14/18 23:45 98.9 F 80 15 103/58 94 Intake and Output 03/14/18 03/14/18 03/15/18 15:59 23:59 07:59 Intake Total 1221 / 1221 1265 / 1265 433 / 433 Output Total 300 / 300 Balance 921 / 921 1265 / 1265 433 / 433 Intake: IV Fluids 1221 / 1221 375 / 375 433 / 433 D5% And 0.45% Nacl 1000 Ml Bag 1000 / 1000 86 / 86 1,000 ML @ 100 mls/hr IVC .Q10H [facility] Rx#:[id number] Heparin 25,000 UNIT/500 ML D5W 121 / 121 189 / 189 433 / 433 25,000 unit In 500 ml @ 14 UNIT /KG/HR 24.131 mls/hr IVC . [id number] [facility] Rx#:[id number] Flagyl Premix 500 MG/100 ML 500 100 / 100 100 / 100 mg In 100 ml @ 100 mls/hr IVPB Q8HR [facility] Rx#:[id number] Oral 890 / 890 Output: Urine 300 / 300 Other: Meal Dinner Percent of Meal Consumed 40% Stool Size Moderate Stool Consistency formed # Voids 1 2 1 - General physical appearance well nourished, no distress - Respiratory normal expansion, normal respiratory effort - Abdomen Abdomen: Present: soft, tender (Mild pain to palptation in the RUQ) - Labs 03/15/18 00:26 03/15/18 00:26 Diabetes panel 03/14/18 03/14/18 03/15/18 Range/Units 06:19 17:34 00:26 Sodium (136-145) mEq/L Potassium 2.6 L (3.5-5.1) mEq/L Chloride (98-107) mEq/L Carbon Dioxide (23-29) mEq/L BUN (8-23) mg/dL Creatinine (0.60-1.20) mg/dL Glucose (70-105) mg/dL Calcium (8.6-10.3) mg/dL AST 23 18 (13-39) Units/L ALT 11 10 (7-52) Units/L Alkaline Phosphatase 69 74 (34-104) Units/L Albumin 3.3 L 2.9 L (3.5-5.7) g/dL 03/15/18 Range/Units 00:26 Sodium 130 L (136-145) mEq/L Potassium 2.9 L (3.5-5.1) mEq/L Chloride 97 L (98-107) mEq/L Carbon Dioxide 26 (23-29) mEq/L BUN 12 (8-23) mg/dL Creatinine 0.56 L (0.60-1.20) mg/dL Glucose 136 H (70-105) mg/dL Calcium 8.4 L (8.6-10.3) mg/dL AST (13-39) Units/L ALT (7-52) Units/L Alkaline Phosphatase (34-104) Units/L Albumin (3.5-5.7) g/dL Calcium panel 03/14/18 03/15/18 03/15/18 Range/Units 06:19 00:26 00:26 Calcium 8.4 L (8.6-10.3) mg/dL Albumin 3.3 L 2.9 L (3.5-5.7) g/dL Pituitary panel 03/14/18 03/15/18 Range/Units 17:34 00:26 Sodium 130 L (136-145) mEq/L Potassium 2.6 L 2.9 L (3.5-5.1) mEq/L Chloride 97 L (98-107) mEq/L Carbon Dioxide 26 (23-29) mEq/L BUN 12 (8-23) mg/dL Creatinine 0.56 L (0.60-1.20) mg/dL Glucose 136 H (70-105) mg/dL Calcium 8.4 L (8.6-10.3) mg/dL Adrenal panel 03/14/18 03/14/1818 Range/Units 06:19 17:34 00:26 Sodium (136-145) mEq/L Potassium 2.6 L (3.5-5.1) mEq/L Chloride (98-107) mEq/L Carbon Dioxide (23-29) mEq/L BUN (8-23) mg/dL Creatinine (0.60-1.20) mg/dL Glucose (70-105) mg/dL Calcium (8.6-10.3) mg/dL Total Bilirubin 1.1 H 1.0 (0.3-1.0) mg/dL AST 23 18 (13-39) Units/L ALT 11 10 (7-52) Units/L Alkaline Phosphatase 69 74 (34-104) Units/L Albumin 3.3 L 2.9 L (3.5-5.7) g/dL 03/15/18 Range/Units 00:26 Sodium 130 L (136-145) mEq/L Potassium 2.9 L (3.5-5.1) mEq/L Chloride 97 L (98-107) mEq/L Carbon Dioxide 26 (23-29) mEq/L BUN 12 (8-23) mg/dL Creatinine 0.56 L (0.60-1.20) mg/dL Glucose 136 H (70-105) mg/dL Calcium 8.4 L (8.6-10.3) mg/dL Total Bilirubin (0.3-1.0) mg/dL AST (13-39) Units/L ALT (7-52) Units/L Alkaline Phosphatase (34-104) Units/L Albumin (3.5-5.7) g/dL Consult Discharge Plan - Plan Referrals: Laura Pratt DO [Primary Care Provider] -
[2018-03-15] MEDS: D5% in 0.45% NACL 1,000 ML IVC SCH ×2 (08:59→16:30)
--- NOTE | 2018-03-15 09:18 | Event Note ---
Date of Encounter: 03/15/18 Time of Encounter: 09:16 EGD performed. Noted fibrinous exudate at the level of the distal third of the esophagus. Biopsied and brushing obtained. OK to resume diet. Add carafate. Will make certain that patient has follow up as outpatient. Will sign off; thank you.
[2018-03-15] MEDS: Pantoprazole 40 MG VIAL IVP SCH (09:34)
[2018-03-15] MEDS: MetroNIDAZOLE 500 MG/100 ML 500 MG/100 ML BAG IVPB SCH ×2 (09:34→17:13)
[2018-03-15] MEDS: Potassium Chloride 40 MEQ in D5% in 0.45% NACL 1,000 ML IVC SCH (09:34)
--- NOTE | 2018-03-15 11:03 | Internal Med Progress Note ---
Date of Encounter: 03/15/18 Time of Encounter: 11:03 - Assessment and plan (1) Acute cholecystitis Current Visit: Yes Status: Acute Assessment and plan: lap chacorta per GS at 1400 today cont metornidazole + levofloxacin WBC 25k --> 19k (2) Hypokalemia Current Visit: Yes Status: Acute Assessment and plan: Cont IV replacement, recheck after current bag is completed PIV access is limited, will continue to infuse KCl through with IVF (3) Hx of deep venous thrombosis Current Visit: Yes Status: Acute Assessment and plan: recent brachial vein DVT cont heparin gtt - Time Spent With Patient Total time spent is greater than 50% in coordination of care (as documented) at patient's floor/unit and/or counseling patient: - Subjective Interval history: RUQ pain imrpvoed lap chacorta at 1400 today occasional nausea Had BM this morning - Constitutional Vitals: Temp Pulse Resp BP Pulse Ox 99.8 F H 87 17 119/69 93 03/15/18 07:02 03/15/18 07:02 03/15/18 07:02 03/15/18 07:02 03/15/18 07:02 General appearance: Present: cooperative, A&O X 3, pleasant, answers questions appropriately - Head Head exam: Present: atraumatic, normocephalic - Eye Eye exam: Present: conjuntiva pink, sclera anicteric - Neck Neck exam general surgery: Present: supple. Absent: nuchal rigidity - Respiratory Respiratory exam: Present: CTAB. Absent: accessory muscle use, rales, rhonchi, wheezes - Cardiovascular Cardiovascular exam: Present: +S1, +S2. Absent: gallop, rubs, systolic murmur - GI/Abdominal GI/Abdominal exam: Present: normal bowel sounds, soft, tenderness (RUQ), no peritoneal signs. Absent: distended, firm, guarding, rebound, rigid - Extremities Exam Extremities exam: Present: warm, radial pulses palpable and symmetrical. Absent : cyanotic, pedal edema - Neurological Exam Neurological exam: Present: alert, CN II-XII intact, oriented X3, no focal deficits - Skin Skin exam: Present: dry, intact Internal Medicine: Result - Labs CBC & Chem 7: 03/15/18 00:26 03/15/18 00:26 Labs: Short CBC 03/15/18 Range/Units 00:26 WBC 19.8 H (4.3-11.1) K/mcL Hgb 11.2 L (11.5-15.4) g/dL Hct 33.6 L (35.3-44.9) % Plt Count 193 (140-400) K/mcL Neutrophils # 17.1 H (1.6-8.9) K/mcL BMP 03/14/18 03/15/18 17:34 00:26 Sodium 130 L Potassium 2.6 L 2.9 L Chloride 97 L Carbon Dioxide 26 BUN 12 Creatinine 0.56 L Glucose 136 H Calcium 8.4 L Liver Function 03/14/18 03/15/18 Range/Units 06:19 00:26 Total Bilirubin 1.1 H 1.0 (0.3-1.0) mg/dL Direct Bilirubin 0.4 H 0.4 H (0.0-0.2) mg/dL AST 23 18 (13-39) Units/L ALT 11 10 (7-52) Units/L Alkaline Phosphatase 69 74 (34-104) Units/L Albumin 3.3 L 2.9 L (3.5-5.7) g/dL - ABG Interpretation ABG results: PT/INR, D-dimer PT 17.0 Seconds (9.4-12.1) H 03/14/18 10:56 - VTE Reasons for not Prescribing Prophylaxis: Not indicated-Anticoagulated or INR therapeutic Consult Discharge Plan - Plan Referrals: Laura Pratt DO [Primary Care Provider] -
--- NOTE | 2018-03-15 14:04 | Anesthesia Evaluation PreOp ---
Date of Encounter: 03/15/18 Time of Encounter: 14:02 - Past History Planned Operation: Lap. May Cardiac History: HTN, Other (Brachial Vein DVT) Pulmonary History: Denies Any Significant HX SALES REP History: Other (Anxietry/Depression) Other Medical History: Thyroid (Hypo), Other (Alzheimers) Anesthesia History: No Prior Anesthetic Complications, Past Anesthesia (ROYA, TKR ) : No Alcohol Use: none Drug use: none Medications and Allergies Fluticasone Propionate Nasal [Flonase] 1 puff NS DAILY 03/13/18 [History] Imiquimod [Zyclara] 1 appl TP DAILY 03/13/18 [History] Levothyroxine [Synthroid] [place] [address]/13/18 [History] Montelukast [Singulair] 10 mg PO DAILY 03/13/18 [History] Omeprazole [PriLOSEC] 40 mg PO DAILY 03/13/18 [History] Ondansetron ODT [Zofran ODT] 4 mg SL Q4HR PRN 03/13/18 [History] Rivaroxaban [Xarelto] 20 mg PO DAILY 03/13/18 [History] Sertraline [Zoloft] 150 mg PO DAILY 03/13/18 [History] hydroCHLOROthiazide [Hydrochlorothiazide] 25 mg PO DAILY 03/13/18 [History] 3 Allergy/AdvReac Type Severity Reaction Status Date / Time No Known Allergies Allergy Verified 03/13/18 19:10 - Meds/Allergy Pre-op Review Medications Reviewed: Yes Allergies Reviewed: Yes Beta Blockers on Current Med List: No Anesthesia Results - Labs 03/15/18 00:26 03/15/18 00:26 - Imaging EKG: report reviewed (SR) Anesthesia Exam Vital Signs/O2 Sat, Most Current Temp Pulse Resp BP Pulse Ox 99.1 F 76 15 108/68 97 03/15/18 10:59 03/15/18 10:59 03/15/18 10:59 03/15/18 10:59 03/15/18 10:59 NPO (# of Hours): > 8 HRS Pain Scale: 0 - HEENT Pupil (Motor): Pupils equal, EOMI Mallampati: II Teeth: Edentulous Oral Opening: Greater than 3 - SALES REP LOC: Oriented SALES REP Motor: Normal RUE, Normal LUE, Normal RLE, Normal LLE, Normal Face SALES REP Sensory: Normal: RUE, LUE, RLE, LLE, Face - Cardiac Rhythm: Regular Murmur: None JVD: No Carotid Bruit: No - Pulmonary Breath Sounds: bilateral Clear Respiratory Effort: Symmetrical Anesthesia Assess/Plan ASA Score: 2 Modified Dario Scale for Level of Consciousness: Cooperative, oriented, and tranquil Anesthetic Plan: General Autologous Blood: Yes Monitoring Plan: Standard Monitors Recovery Plan: PACU
[2018-03-15] MEDS ORDERED: *HR* Midazolam HCl 2 MG/2 ML VIAL ONE (14:27)
[2018-03-15] MEDS ORDERED: *HR* Propofol 200 MG/20 ML VIAL IVP ONE (14:27)
[2018-03-15] MEDS ORDERED: *HR* FentaNYL (PF) 100 MCG/2 ML VIAL ONE ×3 (14:27→16:21)
[2018-03-15] MEDS ORDERED: *HR* Succinylcholine 200 MG/10 ML VIAL IVP ONE (14:30)
[2018-03-15] MEDS ORDERED: Ondansetron 4 MG/2 ML VIAL ONE (14:30)
[2018-03-15] MEDS ORDERED: *HR* Rocuronium Bromide 50 MG/5 ML VIAL ONE (14:30)
[2018-03-15] MEDS ORDERED: Lidocaine -MPF 2% 2 ML VIAL ONE (14:30)
[2018-03-15] MEDS ORDERED: Dexamethasone 4 MG/ML VIAL ONE (14:30)
[2018-03-15] MEDS ORDERED: Neostigmine Methylsulfate 3 MG/3 ML SYRINGE ONE ×2 (14:34→14:41)
[2018-03-15] MEDS ORDERED: Isovue-300 50 ML VIAL IVP ONE (15:14)
[2018-03-15] MEDS ORDERED: *HR* HYDROmorphone (PF) 1 MG/ML SYRINGE IVP PRN (16:21)
[2018-03-15] MEDS ORDERED: Ondansetron 4 MG/2 ML VIAL IVP ONE (16:21)
[2018-03-15] MEDS ORDERED: *HR* Promethazine 25 MG/ML VIAL IVP PRN (16:21)
[2018-03-15] MEDS ORDERED: *HR* Labetalol 100 MG/20 ML MDV IVP PRN (16:21)
[2018-03-15] MEDS: Heparin 25,000 UNIT/500 ML D5W 25,000 UNIT/500 ML BAG IVC SCH (16:30)
[2018-03-15] MEDS ORDERED: Levofloxacin 500 MG/100 ML 500 MG/100 ML BAG IVPB ONE (17:00)
--- NOTE | 2018-03-15 17:31 | Operative Note ---
Date of procedure: 03/15/18 Pre-op diagnosis: Acute cholecystitis Post-op diagnosis: same Procedure: Laparoscopic converted to open cholecystectomy Anesthesia: SHELL Surgeon: Milton Spain Was there an special education assistant present: No Estimated blood loss (cc): 110 Specimen: gallbladder and contents Condition: stable Disposition: PACU Procedure in Detail: Date of surgery: 03/15/18 After properly identifying the patient, the patient was brought to the operating room and placed in a supine position. After proper IV sedation was achieved followed by general endotracheal intubation, the patient's abdomen was prepped and draped in normal sterile fashion. A timeout was performed noting the patient's name and type of procedure to be performed. Half percent Marcaine was used to infiltrate the epidermal and dermal layer in the super umbilical region. An 11 blade scalpel was then used to make an incision in this area down to the level of the rectus fascia. Once the rectus fascia was incised and the abdomen entered a 12 mm port was placed through the incision and the abdomen was insufflated with carbon dioxide. A laparoscopic camera was placed through the port which showed no injury to the intra-abdominal organs upon entry. A subxiphoid 12 mm port and a right lower quadrant 5 mm port were then placed under direct camera visualization after both of these areas were first infiltrated with half percent Marcaine solution. The patient was placed in a reverse Trendelenburg position and the right upper quadrant was examined. The gallbladder had significant amount of omentum adherent to the dome with fibrinous exudate noted over the dome of the gallbladder. Blunt dissection was used to expose a hyperemic and enlarged gallbladder with signs of necrosis consistent with acute cholecystitis. While the omentum was bluntly dissected away from the dome the gallbladder was iatrogenically entered with spillage of bile which was immediately suctioned. The gallbladder was easily friable with tearing of the gallbladder with attempts at grasping the gallbladder. Bovie cauterization was used to help dissect portions of the gallbladder with the gallbladder fossa medially and laterally to plate shop helper with identification of the central structures, however because of the friability and the patient's body habitus (making it difficult to visualize the presumed location of the infundibulum laterally along the cystic duct) the decision was made to go ahead and convert this to an open procedure. All ports were removed from the abdomen and a 15 blade scalpel was used to make a right upper quadrant incision inclusive of the subxiphoid and right subcostal margin port sites. Bovie cauterization was used to dissected through the subcutaneous tissue until the external oblique fascia was encountered. This was opened and the rectus abdominis muscle was also transected with Bovie cauterization. The internal oblique fascia was encountered and opened with Bovie cauterization allowing for visualization of the gallbladder and liver. A Bookwalter was brought onto the operative field to retract the fascia. Sponges were placed within the abdomen as well as retractors help visualize the gallbladder. The gallbladder was dissected away from the gallbladder bladder fossa from a top-down standpoint with Bovie cauterization. Bovie cauterization was used to maintain hemostasis and further dissection was carried down towards the cystic artery which was identified and clipped with laparoscopic clips and incised laparoscopic scissors. Further dissection was then carried down to the cystic duct which was clamped with a right angle clamp followed by incising the cystic duct with scissors and removing the gallbladder and contents and submitting them to pathology. The right upper quadrant was copiously irrigated with normal saline solution and the cystic duct remnant was then tied with a 2- 0 silk tie. Irrigation was once again performed and the decision was made to place a 19-Frisian Long drain within the abdomen which was secured with a 2-0 nylon suture. All sponges and instrument were then removed and the abdominal wall fascia was reapproximated in 2 layers with 0 Vicryl sutures. The deep subcutaneous tissue was then reapproximated with 2-0 Vicryl sutures and the epidermal and dermal layers were reapproximated with remigio. The super umbilical defect was closed by reapproximating the fascia in a figure- of-eight fashion with 2-0 Vicryl sutures. The epidermal and dermal layers were reapproximated with a running 4-0 Monocryl suture. Needle, sponge, and instrument counts were correct 2 and the umbilical incision was covered with Steri-Strips and the right upper quadrant incision was covered with 4 x 4's. The patient was aroused from IV sedation, extubated in the operating room without complication, and transported to the recovery room in stable condition.
--- NOTE | 2018-03-15 18:14 | Anesthesia Evaluation Post Op ---
Date of Encounter: 03/15/18 Time of Encounter: 18:14 - Vital Signs Vital Signs: Vital Signs/O2 Sat, Most Current Temp Pulse Resp BP Pulse Ox 98.1 F 98 16 134/71 96 03/15/18 18:07 03/15/18 18:07 03/15/18 18:07 03/15/18 18:07 03/15/18 18:07 - Lungs Lungs: Clear Ascult./Percussion - Airway Airway: Non-obstructed - Cardiovascular Regular Rate - Mental Status Mental Status: Alert & Oriented, Answers Appropriately - Pain Pain Scale: 0 Pain Scale used: Numeric (1 - 10) - Hydration Hydration: NPO, Has not voided - Discharge PostOp Status: Transfer Patient to floor
[2018-03-15] MEDS ORDERED: traMADol 50 MG TABLET PO PRN (18:54)
[2018-03-15] MEDS ORDERED: 0.9 % Sodium Chloride 1,000 ML IVC SCH (18:54)
[2018-03-15] MEDS ORDERED: Naloxone 0.4 MG/ML INJ IVP PRN (18:54)
[2018-03-15] MEDS ORDERED: Acetaminophen 325 MG TABLET PO PRN (18:54)
[2018-03-15] MEDS: Ondansetron 4 MG/2 ML VIAL IVP PRN (20:12)
[2018-03-16] MEDS: MetroNIDAZOLE 500 MG/100 ML 500 MG/100 ML BAG IVPB SCH ×4 (03:49→23:44)
[2018-03-16] MEDS: Potassium Chloride 40 MEQ in D5% in 0.45% NACL 1,000 ML IVC SCH (03:49)
[2018-03-16] MEDS: Ondansetron 4 MG/2 ML VIAL IVP PRN (03:51)
[2018-03-16] MEDS: MORPHINE SUL Oral CONC 10 MG/0.5 ML ORAL.SYG SL PRN ×3 (05:14→14:29)
[2018-03-16 05:16] LABS: Basophils # 0.1 K/mcL (0.0-0.2); Basophils % 0.3 %; Eosinophils % 0.1 %; Hematocrit 32.6 % (35.3-44.9); Hemoglobin 10.9 g/dL (11.5-15.4); Immature Granulocytes % 1.9 % (0-4); Lymphocytes # 0.9 K/mcL (0.6-4.6); Lymphocytes % 5.2 %; Mean Corpuscular HGB Conc 33.4 g/dL (31.6-35.5); Mean Corpuscular Hemoglobin 27.7 pg (28.0-33.3); Mean Corpuscular Volume 82.7 fL (83.0-100.0); Mean Platelet Volume 10.3 fL (9.4-12.4); Monocytes # 1.4 K/mcL (0.0-1.3); Monocytes % 7.7 %; Neutrophils # 14.8 K/mcL (1.6-8.9); Platelet Count 247 K/mcL (140-400); Red Blood Count 3.94 M/mcL (3.82-4.97); Red Cell Distribution Width 14.2 % (11.5-14.5); Segmented Neutrophils % 84.8 %
[2018-03-16 05:38] LABS: BUN/Creatinine Ratio 28 (6-26); Blood Urea Nitrogen 13 mg/dL (8-23); Calcium 8.5 mg/dL (8.6-10.3); Carbon Dioxide 26 mEq/L (23-29); Chloride 101 mEq/L (98-107); Glucose 135 mg/dL (70-105); Osmolality,Calculated 280 (280-300); Potassium 3.5 mEq/L (3.5-5.1); Sodium 134 mEq/L (136-145); eGFR For African Americans > 60 (> 60); eGFR For Non-African Americans > 60 (> 60)
--- NOTE | 2018-03-16 08:31 | Internal Med Progress Note ---
Date of Encounter: 03/16/18 Time of Encounter: 08:28 - Assessment and plan (1) Acute cholecystitis Current Visit: Yes Status: Acute Assessment and plan: s/p lap --> open chacorta 03/15/18 Cont metro + cipro for now, will ask surgery if source control adequate before stopping Abx WBC 25k --> 17k Diet per GS recs Cont incentive spirometry (2) Hypokalemia Current Visit: Yes Status: Acute Assessment and plan: cont IVF with KCl (3) Hx of deep venous thrombosis Current Visit: Yes Status: Acute Assessment and plan: heparin gtt on hold, will resume once ok with surgery unclear if she needs termite technician AC though (one episode), unclear if provoked or unprovoked and especially in upper extremity (4) Anemia Current Visit: Yes Status: Acute Assessment and plan: Hb 13 --> 11, could be dilutional, acute illness, no S/S of acute blood loss Qualifiers: Anemia type: unspecified type Qualified Code(s): D64.9 - Anemia, unspecified - Time Spent With Patient Total time spent is greater than 50% in coordination of care (as documented) at patient's floor/unit and/or counseling patient: - Subjective Interval history: Postop abdominal pain lap chacorta converted to open due to inflammation no cp, sob, n, v, - Constitutional Vitals: Temp Pulse Resp BP Pulse Ox 98.7 F 82 16 137/68 94 03/16/18 07:30 03/16/18 07:30 03/16/18 07:30 03/16/18 07:30 03/16/18 07:30 General appearance: Present: cooperative, A&O X 3, pleasant, answers questions appropriately - Head Head exam: Present: atraumatic, normocephalic - Eye Eye exam: Present: PERRL, conjuntiva pink, sclera anicteric Pupils: Present: PERRL - Neck Neck exam general surgery: Present: supple, trachea midline. Absent: nuchal rigidity - Respiratory Respiratory exam: Present: CTAB. Absent: accessory muscle use, rales, rhonchi, wheezes - Cardiovascular Cardiovascular exam: Present: RRR, +S1, +S2. Absent: diastolic murmur, gallop, rubs, systolic murmur - GI/Abdominal GI/Abdominal exam: Present: normal bowel sounds, soft, no peritoneal signs. Absent: distended, tenderness Additional comments: RUQ drain with small amount of serosanguinous fluid - Extremities Exam Extremities exam: Present: warm, radial pulses palpable and symmetrical. Absent : cyanotic, pedal edema - Neurological Exam Neurological exam: Present: CN II-XII intact, oriented X3, no focal deficits. Absent: facial droop, speech deficit - Skin Skin exam: Present: dry, intact Internal Medicine: Result - Labs CBC & Chem 7: 03/16/18 04:51 03/16/18 04:51 Labs: Short CBC 03/16/18 Range/Units 04:51 WBC 17.4 H (4.3-11.1) K/mcL Hgb 10.9 L (11.5-15.4) g/dL Hct 32.6 L (35.3-44.9) % Plt Count 247 (140-400) K/mcL Neutrophils # 14.8 H (1.6-8.9) K/mcL BMP 03/16/18 04:51 Sodium 134 L Potassium 3.5 Chloride 101 Carbon Dioxide 26 BUN 13 Creatinine 0.47 L Glucose 135 H Calcium 8.5 L - ABG Interpretation ABG results: PT/INR, D-dimer PT 17.0 Seconds (9.4-12.1) H 03/14/18 10:56 - VTE Reasons for not Prescribing Prophylaxis: Not indicated-Anticoagulated or INR therapeutic Documentation of Mechanical Device: Intermittent pneumatic compression device Consult Discharge Plan - Plan Referrals: Laura Pratt DO [Primary Care Provider] -
[2018-03-16] MEDS: Pantoprazole 40 MG VIAL IVP SCH (09:30)
--- NOTE | 2018-03-16 13:18 | General Surgery Progress Note ---
<Vinod Bermudez R - Last Filed: 03/16/18 13:24> Date of Encounter: 03/16/18 Time of Encounter: 15:00 - Assessment and Plan (1) Acute cholecystitis Current Visit: Yes Status: Acute POD #1 s/p laparoscopic cholecystectomy converted into open cholecystectomy wimelinda [place] Leukocytosis improving. Afebrile Pain responding to medication PLAN: Continue levaquin, flagyl, pain, and nausea medications Heparin BID for DVT prophylaxis. Hold Xarelto - likely resume tomorrow Change dressing tomorrow - C/D/I AM labs (2) Hypokalemia Current Visit: Yes Status: Acute Replace and monitor (3) Hx of deep venous thrombosis Current Visit: Yes Status: Acute Hold Xarelto - continue heparin BID. Likely resume Xarelto tomorrow Subjective Patient reports: still having pain, voiding w/o difficulty, flatus, afebrile Narrative: Pt reports that she is having some pain in her abdomen, but improved with medications. Voiding in small amounts. Denies N/V. Denies having much appetite at this point. No fevers, CP, or dyspnea. Objective Vital Signs - Last 8 Hours Temp Pulse Resp BP Pulse Ox 03/16/18 10:43 97.9 F 68 16 110/60 94 03/16/18 09:59 94 03/16/18 07:30 98.7 F 82 16 137/68 94 Intake and Output 03/15/18 03/16/18 03/16/18 23:59 07:59 15:59 Intake Total 100 / 100 100 / 100 700 / 700 Output Total 170 / 170 330 / 330 25 / 25 Balance -70 / -70 -230 / -230 675 / 675 Intake: IV Fluids 100 / 100 100 / 100 100 / 100 Levaquin Premix 500mg/100mL 500 100 / 100 mg In 100 ml @ 100 mls/hr IVPB ONCE ONE Rx#:[id number] Flagyl Premix 500 MG/100 ML 500 100 / 100 100 / 100 mg In 100 ml @ 100 mls/hr IVPB Q8HR [facility] Rx#:[id number] Oral 0 / 0 600 / 600 Output: Urine 290 / 290 Estimated Blood Loss 110 / 110 Wound Drainage 60 / 60 40 / 40 25 / 25 Right Upper Abdomen 30 / 30 40 / 40 25 / 25 Other: Meal npo Lunch - General physical appearance well developed, well nourished, no distress - Eyes normal ocular movement - Respiratory normal expansion, normal respiratory effort, clear to auscultation - Cardiovascular Cardiovascular exam: Present: RRR - Abdomen Abdomen: Present: bowel sounds present, soft, tender (appropriately). Absent: rebound, rigid - Incision Incision: Present: clean and dry (YOUNG drain with minimal serosanginous drainage) , intact - Integumentary no rash, no growths, no abnormal pigmentation - Neurologic CN 2-12 grossly intact - Psychiatric oriented to time, oriented to person, oriented to place, speech is normal, memory intact - Labs 03/16/18 04:51 03/16/18 04:51 Diabetes panel 03/16/18 Range/Units 04:51 Sodium 134 L (136-145) mEq/L Potassium 3.5 (3.5-5.1) mEq/L Chloride 101 (98-107) mEq/L Carbon Dioxide 26 (23-29) mEq/L BUN 13 (8-23) mg/dL Creatinine 0.47 L (0.60-1.20) mg/dL Glucose 135 H (70-105) mg/dL Calcium 8.5 L (8.6-10.3) mg/dL Calcium panel 03/16/18 Range/Units 04:51 Calcium 8.5 L (8.6-10.3) mg/dL Pituitary panel 03/16/18 Range/Units 04:51 Sodium 134 L (136-145) mEq/L Potassium 3.5 (3.5-5.1) mEq/L Chloride 101 (98-107) mEq/L Carbon Dioxide 26 (23-29) mEq/L BUN 13 (8-23) mg/dL Creatinine 0.47 L (0.60-1.20) mg/dL Glucose 135 H (70-105) mg/dL Calcium 8.5 L (8.6-10.3) mg/dL Adrenal panel 03/16/18 Range/Units 04:51 Sodium 134 L (136-145) mEq/L Potassium 3.5 (3.5-5.1) mEq/L Chloride 101 (98-107) mEq/L Carbon Dioxide 26 (23-29) mEq/L BUN 13 (8-23) mg/dL Creatinine 0.47 L (0.60-1.20) mg/dL Glucose 135 H (70-105) mg/dL Calcium 8.5 L (8.6-10.3) mg/dL - VTE Reasons for not Prescribing Prophylaxis: Not indicated-Anticoagulated or INR therapeutic Documentation of Mechanical Device: Intermittent pneumatic compression device Consult Discharge Plan - Plan Referrals: Laura Pratt DO [Primary Care Provider] - <GrabielMilton Alyson - Last Filed: 03/16/18 13:56> Date of Encounter: 03/16/18 - Assessment and Plan (1) Acute cholecystitis Current Visit: Yes Status: Acute Objective Vital Signs - Last 8 Hours Temp Pulse Resp BP Pulse Ox 03/16/18 10:43 97.9 F 68 16 110/60 94 03/16/18 09:59 94 03/16/18 07:30 98.7 F 82 16 137/68 94 Intake and Output 03/15/18 03/16/18 03/16/18 23:59 07:59 15:59 Intake Total 100 / 100 100 / 100 700 / 700 Output Total 170 / 170 330 / 330 25 / 25 Balance -70 / -70 -230 / -230 675 / 675 Intake: IV Fluids 100 / 100 100 / 100 100 / 100 Levaquin Premix 500mg/100mL 500 100 / 100 mg In 100 ml @ 100 mls/hr IVPB ONCE ONE Rx#:[id number] Flagyl Premix 500 MG/100 ML 500 100 / 100 100 / 100 mg In 100 ml @ 100 mls/hr IVPB Q8HR [facility] Rx#:[id number] Oral 0 / 0 600 / 600 Output: Urine 290 / 290 Estimated Blood Loss 110 / 110 Wound Drainage 60 / 60 40 / 40 25 / 25 Right Upper Abdomen 30 / 30 40 / 40 25 / 25 Other: Meal npo Lunch - Labs 03/16/18 04:51 03/16/18 04:51 Diabetes panel 03/16/18 Range/Units 04:51 Sodium 134 L (136-145) mEq/L Potassium 3.5 (3.5-5.1) mEq/L Chloride 101 (98-107) mEq/L Carbon Dioxide 26 (23-29) mEq/L BUN 13 (8-23) mg/dL Creatinine 0.47 L (0.60-1.20) mg/dL Glucose 135 H (70-105) mg/dL Calcium 8.5 L (8.6-10.3) mg/dL Calcium panel 03/16/18 Range/Units 04:51 Calcium 8.5 L (8.6-10.3) mg/dL Pituitary panel 03/16/18 Range/Units 04:51 Sodium 134 L (136-145) mEq/L Potassium 3.5 (3.5-5.1) mEq/L Chloride 101 (98-107) mEq/L Carbon Dioxide 26 (23-29) mEq/L BUN 13 (8-23) mg/dL Creatinine 0.47 L (0.60-1.20) mg/dL Glucose 135 H (70-105) mg/dL Calcium 8.5 L (8.6-10.3) mg/dL Adrenal panel 03/16/18 Range/Units 04:51 Sodium 134 L (136-145) mEq/L Potassium 3.5 (3.5-5.1) mEq/L Chloride 101 (98-107) mEq/L Carbon Dioxide 26 (23-29) mEq/L BUN 13 (8-23) mg/dL Creatinine 0.47 L (0.60-1.20) mg/dL Glucose 135 H (70-105) mg/dL Calcium 8.5 L (8.6-10.3) mg/dL - Attending Attestation I examined this patient and my medical decision-making was reviewed with the Resident Physician. I agree with the documented findings, disposition and treatment plan as described except to the extent set forth below. I reviewed the above assessment and evaluation agree with the above plan. We will change her dressing tomorrow. Continue to monitor YOUNG output. Continue clears for now.
[2018-03-16] MEDS: *HR* Heparin 5,000 UNIT/ML VIAL SQ SCH (17:49)
[2018-03-16] MEDS: Levofloxacin 750 MG/150 ML 750 MG/150 ML BAG IVPB SCH (17:53)
[2018-03-16] MEDS ORDERED: Levofloxacin 500 MG/100 ML 500 MG/100 ML BAG IVPB SCH (18:00)
[2018-03-17 05:53] LABS: Hematocrit 30.2 % (35.3-44.9); Hemoglobin 9.9 g/dL (11.5-15.4); Mean Corpuscular HGB Conc 32.8 g/dL (31.6-35.5); Mean Corpuscular Hemoglobin 27.6 pg (28.0-33.3); Mean Corpuscular Volume 84.1 fL (83.0-100.0); Mean Platelet Volume 9.8 fL (9.4-12.4); Platelet Count 238 K/mcL (140-400); Red Blood Count 3.59 M/mcL (3.82-4.97); Red Cell Distribution Width 14.3 % (11.5-14.5)
[2018-03-17] MEDS: *HR* Heparin 5,000 UNIT/ML VIAL SQ SCH ×2 (06:03→17:12)
[2018-03-17 06:13] LABS: BUN/Creatinine Ratio 22 (6-26); Blood Urea Nitrogen 11 mg/dL (8-23); Calcium 8.5 mg/dL (8.6-10.3); Carbon Dioxide 25 mEq/L (23-29); Chloride 106 mEq/L (98-107); Glucose 100 mg/dL (70-105); Magnesium 1.7 mg/dL (1.6-2.6); Osmolality,Calculated 283 (280-300); Potassium 3.5 mEq/L (3.5-5.1); Sodium 137 mEq/L (136-145); eGFR For African Americans > 60 (> 60); eGFR For Non-African Americans > 60 (> 60)
[2018-03-17] MEDS: MetroNIDAZOLE 500 MG/100 ML 500 MG/100 ML BAG IVPB SCH ×2 (08:10→17:13)
[2018-03-17] MEDS: Pantoprazole 40 MG VIAL IVP SCH (08:10)
[2018-03-17] MEDS: MORPHINE SUL Oral CONC 10 MG/0.5 ML ORAL.SYG SL PRN (08:11)
[2018-03-17] MEDS: hydroCHLOROthiazide 25 MG TABLET PO SCH (09:52)
[2018-03-17] MEDS ORDERED: Ipratropium/Albuterol Neb 3 ML IH SCH (10:00)
--- NOTE | 2018-03-17 10:14 | General Surgery Progress Note ---
<Vinod Bermudez R - Last Filed: 03/17/18 14:53> Date of Encounter: 03/17/18 Time of Encounter: 08:45 - Assessment and Plan (1) Acute cholecystitis Current Visit: Yes Status: Acute POD #2 s/p laparoscopic cholecystectomy converted into open cholecystectomy susan [place] Leukocytosis improving. Afebrile Pain responding to medication PLAN: Continue levaquin, flagyl, pain, and nausea medications Add Colace Daily wound care - C/D/I Able to advance diet to full liquids as tolerated May resume Xarelto today from a surgical standpoint - per primary team Wheezes on exam - recommend duonebs PRN if she will tolerate AM labs (2) Alzheimer disease Current Visit: Yes Status: Acute Pt is becoming increasing confused, stating that she wants to go home despite what the doctors say. Recommend continued hospitalization for monitoring of her abdominal symptoms and recovery. Qualifiers: Alzheimer's disease onset: unspecified onset Dementia behavioral disturbance: with behavioral disturbance Qualified Code(s): G30.9 - Alzheimer' s disease, unspecified; F02.81 - Dementia in other diseases classified elsewhere with behavioral disturbance Subjective Patient reports: no new complaints, feels better, still having pain, pain is less, tolerating liquids well, voiding w/o difficulty Narrative: Pt sitting upright in chair. Reports a mild improvement. Still having some pain and nausea, medications are helping. Reports not having much of an appetite. Unsure if she has been passing gas. Possibly had a BM last night, but nothing was recorded in the chart. Reports a mild cough with clear sputum, states this is normal for her. No vomiting, fevers, chills, chest pain, or dysuria. She is expressing a desire to go home and is very adamant that she is leaving. Objective Vital Signs - Last 8 Hours Temp Pulse Resp BP Pulse Ox 03/17/18 08:46 92 03/17/18 06:48 99.7 F H 81 18 163/77 92 03/17/18 05:21 97.9 F 85 16 102/59 96 Intake and Output 03/16/18 03/17/18 03/17/18 23:59 07:59 15:59 Intake Total 1120 / 1120 100 / 100 250 / 250 Output Total 25 / 25 Balance 1120 / 1120 75 / 75 250 / 250 Intake: IV Fluids 1120 / 1120 100 / 100 250 / 250 KCl 40 MEQ In D5% And 0.45% 1020 / 1020 Nacl 1000 Ml Bag 1,000 ML @ 75 mls/hr IVC .[id number] COUNTS INCLUDE 234 BEDS AT [facility] Rx#: [id number] Levaquin Premix 750mg/150 mL 150 / 150 750 mg In 150 ml @ 100 mls/hr IVPB Q24H [facility] Rx#:[id number] Flagyl Premix 500 MG/100 ML 500 100 / 100 100 / 100 100 / 100 mg In 100 ml @ 100 mls/hr IVPB Q8HR [facility] Rx#:[id number] Output: Wound Drainage Right Upper Abdomen 25 / - General physical appearance well developed, well nourished, no distress - Eyes normal ocular movement - Respiratory normal expansion, normal respiratory effort wheezing: bilateral - Cardiovascular Cardiovascular exam: Present: RRR, no murmurs/rubs/gallops - Abdomen Abdomen: Present: bowel sounds present, soft, tender (appropriately). Absent: distended, guarding, rebound, rigid - Incision Incision: Present: clean and dry, intact, serosanguinous (YOUNG drain). Absent: erythema, purulent - Integumentary no rash, no growths, no abnormal pigmentation - Neurologic CN 2-12 grossly intact - Psychiatric oriented to time, oriented to person, oriented to place, speech is normal - Labs 03/17/18 05:40 03/17/18 05:40 Diabetes panel 03/17/18 Range/Units 05:40 Sodium 137 (136-145) mEq/L Potassium 3.5 (3.5-5.1) mEq/L Chloride 106 (98-107) mEq/L Carbon Dioxide 25 (23-29) mEq/L BUN 11 (8-23) mg/dL Creatinine 0.51 L (0.60-1.20) mg/dL Glucose 100 (70-105) mg/dL Calcium 8.5 L (8.6-10.3) mg/dL Calcium panel 03/17/18 Range/Units 05:40 Calcium 8.5 L (8.6-10.3) mg/dL Pituitary panel 03/17/18 Range/Units 05:40 Sodium 137 (136-145) mEq/L Potassium 3.5 (3.5-5.1) mEq/L Chloride 106 (98-107) mEq/L Carbon Dioxide 25 (23-29) mEq/L BUN 11 (8-23) mg/dL Creatinine 0.51 L (0.60-1.20) mg/dL Glucose 100 (70-105) mg/dL Calcium 8.5 L (8.6-10.3) mg/dL Adrenal panel 03/17/18 Range/Units 05:40 Sodium 137 (136-145) mEq/L Potassium 3.5 (3.5-5.1) mEq/L Chloride 106 (98-107) mEq/L Carbon Dioxide 25 (23-29) mEq/L BUN 11 (8-23) mg/dL Creatinine 0.51 L (0.60-1.20) mg/dL Glucose 100 (70-105) mg/dL Calcium 8.5 L (8.6-10.3) mg/dL - VTE Reasons for not Prescribing Prophylaxis: Not indicated-Anticoagulated or INR therapeutic Documentation of Mechanical Device: Intermittent pneumatic compression device Consult Discharge Plan - Plan Referrals: Laura Pratt DO [Primary Care Provider] - <Milton Spian - Last Filed: 03/18/18 09:11> Date of Encounter: 03/17/18 - Assessment and Plan (1) Acute cholecystitis Current Visit: Yes Status: Acute Objective Vital Signs - Last 8 Hours Temp Pulse Resp BP Pulse Ox 03/18/18 07:44 98.6 F 76 14 127/73 97 03/18/18 03:41 98.4 F 85 14 149/85 94 Intake and Output 03/17/18 03/18/18 03/18/18 23:59 07:59 15:59 Intake Total 250 / 250 200 / 200 1000 / 1000 Output Total 200 / 200 525 / 525 Balance 50 / 50 -325 / -325 1000 / 1000 Intake: IV Fluids 250 / 250 100 / 100 1000 / 1000 Lactated Ringers 1,000 ML @ 75 1000 / 1000 mls/hr IVC .[id number] [facility] Rx#: [id number] Levaquin Premix 750mg/150 mL 150 / 150 750 mg In 150 ml @ 100 mls/hr IVPB Q24H [facility] Rx#:[id number] Flagyl Premix 500 MG/100 ML 500 100 / 100 100 / 100 mg In 100 ml @ 100 mls/hr IVPB Q8HR [facility] Rx#:[id number] Oral 100 / 100 Output: Urine 200 / 200 500 / 500 Wound Drainage Right Upper Abdomen Other: Stool Size Moderate Stool Consistency loose Stool Color Brown # Voids 1 # Bowel Movements 0 0 # Bowel Movement Diapers 0 Weight 88.9 kg - Labs 03/18/18 04:34 03/18/18 04:34 Diabetes panel 03/18/18 Range/Units 04:34 Sodium 136 (136-145) mEq/L Potassium 3.1 L (3.5-5.1) mEq/L Chloride 103 (98-107) mEq/L Carbon Dioxide 26 (23-29) mEq/L BUN 7 L (8-23) mg/dL Creatinine 0.48 L (0.60-1.20) mg/dL Glucose 112 H (70-105) mg/dL Calcium 8.3 L (8.6-10.3) mg/dL Calcium panel 03/18/18 Range/Units 04:34 Calcium 8.3 L (8.6-10.3) mg/dL Pituitary panel 03/18/18 Range/Units 04:34 Sodium 136 (136-145) mEq/L Potassium 3.1 L (3.5-5.1) mEq/L Chloride 103 (98-107) mEq/L Carbon Dioxide 26 (23-29) mEq/L BUN 7 L (8-23) mg/dL Creatinine 0.48 L (0.60-1.20) mg/dL Glucose 112 H (70-105) mg/dL Calcium 8.3 L (8.6-10.3) mg/dL Adrenal panel 03/18/18 Range/Units 04:34 Sodium 136 (136-145) mEq/L Potassium 3.1 L (3.5-5.1) mEq/L Chloride 103 (98-107) mEq/L Carbon Dioxide 26 (23-29) mEq/L BUN 7 L (8-23) mg/dL Creatinine 0.48 L (0.60-1.20) mg/dL Glucose 112 H (70-105) mg/dL Calcium 8.3 L (8.6-10.3) mg/dL - Attending Attestation I examined this patient and my medical decision-making was reviewed with the Resident Physician. I agree with the documented findings, disposition and treatment plan as described except to the extent set forth below. I reviewed the above assessment and evaluation and agree with the above plan. Will start working on approval for home health and wound VAC changes.
--- NOTE | 2018-03-17 13:54 | Internal Med Progress Note ---
Date of Encounter: 03/17/18 Time of Encounter: 13:30 - Assessment and plan (1) Leukocytosis Current Visit: Yes Status: Acute Qualifiers: Leukocytosis type: unspecified Qualified Code(s): D72.829 - Elevated white blood cell count, unspecified (2) Hypokalemia Current Visit: Yes Status: Acute (3) Acute cholecystitis Current Visit: Yes Status: Acute (4) Hypokalemia Current Visit: Yes Status: Acute (5) Hyponatremia Current Visit: Yes Status: Acute (6) Hx of deep venous thrombosis Current Visit: Yes Status: Acute (7) DVT prophylaxis Current Visit: Yes Status: Acute (8) Alzheimer disease Current Visit: Yes Status: Acute Qualifiers: Alzheimer's disease onset: unspecified onset Dementia behavioral disturbance: with behavioral disturbance Qualified Code(s): G30.9 - Alzheimer' s disease, unspecified; F02.81 - Dementia in other diseases classified elsewhere with behavioral disturbance - Time Spent With Patient Total time spent is greater than 50% in coordination of care (as documented) at patient's floor/unit and/or counseling patient: - Constitutional Vitals: Temp Pulse Resp BP Pulse Ox 98.9 F 81 18 117/70 96 03/17/18 10:43 03/17/18 10:43 03/17/18 10:43 03/17/18 10:43 03/17/18 10:43 General appearance: Present: cooperative, A&O X 3, pleasant, answers questions appropriately Internal Medicine: Result - Labs CBC & Chem 7: 03/17/18 05:40 03/17/18 05:40 Labs: Short CBC 03/17/18 Range/Units 05:40 WBC 15.5 H (4.3-11.1) K/mcL Hgb 9.9 L (11.5-15.4) g/dL Hct 30.2 L (35.3-44.9) % Plt Count 238 (140-400) K/mcL BMP 03/17/18 05:40 Sodium 137 Potassium 3.5 Chloride 106 Carbon Dioxide 25 BUN 11 Creatinine 0.51 L Glucose 100 Calcium 8.5 L - ABG Interpretation ABG results: PT/INR, D-dimer PT 17.0 Seconds (9.4-12.1) H 03/14/18 10:56 - VTE Reasons for not Prescribing Prophylaxis: Not indicated-Anticoagulated or INR therapeutic Documentation of Mechanical Device: Intermittent pneumatic compression device Consult Discharge Plan - Plan Referrals: Laura Pratt DO [Primary Care Provider] -
--- NOTE | 2018-03-17 14:06 | Internal Med Progress Note ---
Date of Encounter: 03/17/18 Time of Encounter: 13:45 - Assessment and plan (1) Acute cholecystitis Current Visit: Yes Status: Acute Assessment and plan: Postop day 2 status post laparoscopic cholecystectomy converted into open cholecystectomy with Dr. Spain - Spenser Garcia - Presently on clear liquids. Advance diet per surgery. (2) Hx of deep venous thrombosis Current Visit: Yes Status: Acute Assessment and plan: Brachial vein on Xarelto. Holding Xarelto for surgery. Patient was diagnosed on 12/03/2017. She is already completed 3 months off and correlation. Although this was unprovoked, brachial vein was involved and no central veins. She denies any malignancy. We will could consider a discussion about stopping anticoagulation. Medical admission is on hold at present. (3) Alzheimer disease Current Visit: Yes Status: Acute Assessment and plan: Patient's family says she is already agitated about being here. Will place order for Haldol 1mg IV Q6H prn for agitation. Qualifiers: Alzheimer's disease onset: unspecified onset Dementia behavioral disturbance: with behavioral disturbance Qualified Code(s): G30.9 - Alzheimer' s disease, unspecified; F02.81 - Dementia in other diseases classified elsewhere with behavioral disturbance (4) Hypothyroidism Current Visit: Yes Status: Chronic Assessment and plan: Resume Synthroid (5) Hypertension Current Visit: Yes Status: Chronic Assessment and plan: Resume home medications (6) DVT prophylaxis Current Visit: Yes Status: Acute Assessment and plan: Heparin drip - Time Spent With Patient Total time spent is greater than 50% in coordination of care (as documented) at patient's floor/unit and/or counseling patient: 25 - 35 minutes - Subjective Interval history: Expressing wishes to go home. No pain at present. No new complaints. Does not like a liquid diet. - Constitutional Vitals: Temp Pulse Resp BP Pulse Ox 98.9 F 81 18 117/70 96 03/17/18 10:43 03/17/18 10:43 03/17/18 10:43 03/17/18 10:43 03/17/18 10:43 General appearance: Present: cooperative, A&O X 3, pleasant, answers questions appropriately Exam: Physical exam Gen: Comfortable, laying in bed, in no visible distress HEENT: Normocephalic, atraumatic. No conjunctival icterus. Moist oral mucosa. Neck: Supple Lungs: Clear to auscultation, no foreign sounds Heart: Normal S1-S2, no murmurs rubs or gallops Abdomen: Normoactive bowel sounds, no guarding rigidity, mild tenderness Extremities: No edema clubbing or cyanosis Neuro: Alert oriented 3, no focal deficits Skin: No skin lesions Internal Medicine: Result - Labs CBC & Chem 7: 03/17/18 05:40 03/17/18 05:40 Labs: Short CBC 03/17/18 Range/Units 05:40 WBC 15.5 H (4.3-11.1) K/mcL Hgb 9.9 L (11.5-15.4) g/dL Hct 30.2 L (35.3-44.9) % Plt Count 238 (140-400) K/mcL BMP 03/17/18 05:40 Sodium 137 Potassium 3.5 Chloride 106 Carbon Dioxide 25 BUN 11 Creatinine 0.51 L Glucose 100 Calcium 8.5 L - ABG Interpretation ABG results: PT/INR, D-dimer PT 17.0 Seconds (9.4-12.1) H 03/14/18 10:56 - VTE Reasons for not Prescribing Prophylaxis: Not indicated-Anticoagulated or INR therapeutic Documentation of Mechanical Device: Intermittent pneumatic compression device Consult Discharge Plan - Plan Referrals: Laura Pratt DO [Primary Care Provider] -
[2018-03-17] MEDS ORDERED: Ipratropium/Albuterol Neb 3 ML IH PRN (14:52)
[2018-03-17] MEDS: Haloperidol Lactate 5 MG/ML VIAL IVP PRN (15:24)
[2018-03-17] MEDS: Potassium Chloride 40 MEQ in D5% in 0.45% NACL 1,000 ML IVC SCH (15:39)
[2018-03-17] MEDS: Ringers Solution, Lactated 1,000 ML IVC SCH (17:12)
[2018-03-17] MEDS: Levofloxacin 750 MG/150 ML 750 MG/150 ML BAG IVPB SCH (17:14)
[2018-03-17] MEDS: Ondansetron 4 MG/2 ML VIAL IVP PRN (20:32)
[2018-03-18] MEDS: MetroNIDAZOLE 500 MG/100 ML 500 MG/100 ML BAG IVPB SCH ×5 (00:56→23:47)
[2018-03-18] MEDS: Potassium Chloride 40 MEQ in D5% in 0.45% NACL 1,000 ML IVC SCH ×2 (03:39→08:11)
[2018-03-18 04:52] LABS: Hemoglobin 9.6 g/dL (11.5-15.4); Mean Corpuscular HGB Conc 33.1 g/dL (31.6-35.5); Mean Corpuscular Hemoglobin 27.8 pg (28.0-33.3); Mean Corpuscular Volume 84.1 fL (83.0-100.0); Mean Platelet Volume 9.9 fL (9.4-12.4); Platelet Count 252 K/mcL (140-400); Red Blood Count 3.45 M/mcL (3.82-4.97); Red Cell Distribution Width 14.3 % (11.5-14.5)
[2018-03-18 05:07] LABS: BUN/Creatinine Ratio 15 (6-26); Blood Urea Nitrogen 7 mg/dL (8-23); Calcium 8.3 mg/dL (8.6-10.3); Carbon Dioxide 26 mEq/L (23-29); Chloride 103 mEq/L (98-107); Glucose 112 mg/dL (70-105); Osmolality,Calculated 281 (280-300); Potassium 3.1 mEq/L (3.5-5.1); Sodium 136 mEq/L (136-145); eGFR For African Americans > 60 (> 60); eGFR For Non-African Americans > 60 (> 60)
[2018-03-18 05:38] LABS: Eosinophils # 2.6 K/mcL (0.0-0.6); Lymphocytes # 2.9 K/mcL (0.6-4.6); Monocytes # 1.4 K/mcL (0.0-1.3); Neutrophils # 7.5 K/mcL (1.6-8.9); Platelet Estimate Normal (Normal); Reactive Lymphocytes Present (Not Present)
[2018-03-18] MEDS: *HR* Heparin 5,000 UNIT/ML VIAL SQ SCH ×2 (06:19→18:10)
[2018-03-18] MEDS: Ringers Solution, Lactated 1,000 ML IVC SCH (08:03)
[2018-03-18] MEDS: Fluticasone Propionate Nasal 50 MCG/SPRAY BOTTLE NS SCH (08:10)
[2018-03-18] MEDS: Pantoprazole 40 MG VIAL IVP SCH (08:10)
[2018-03-18] MEDS: hydroCHLOROthiazide 25 MG TABLET PO SCH (08:11)
[2018-03-18] MEDS ORDERED: Potassium Chloride 40 MEQ, Lidocaine 1% 2 ML in D5% in Water 500 ML IVPB ONE (09:59)
--- NOTE | 2018-03-18 11:02 | Internal Med Progress Note ---
Date of Encounter: 03/18/18 Time of Encounter: 10:30 - Assessment and plan (1) Acute cholecystitis Current Visit: Yes Status: Acute Assessment and plan: Postop day 2 status post laparoscopic cholecystectomy converted into open cholecystectomy with Dr. Spain - Spenser Garcia - Presently on clear liquids. Advance diet per surgery. Discussed with dietitian. (2) Hx of deep venous thrombosis Current Visit: Yes Status: Acute Assessment and plan: Brachial vein dvt on Xarelto. Holding Xarelto for surgery. Patient was diagnosed on 12/03/2017. She is already completed 3 months of anticoagulation. Although this was unprovoked, brachial vein was involved and no central veins. She denies any malignancy. We will could consider a discussion about stopping anticoagulation. Heparin infusion on hold. We will repeat venous Doppler ultrasound of upper extremities. (3) Alzheimer disease Current Visit: Yes Status: Acute Assessment and plan: Patient's family says she is already agitated about being here. Will place order for Haldol 1mg IV Q6H prn for agitation. Qualifiers: Alzheimer's disease onset: unspecified onset Dementia behavioral disturbance: with behavioral disturbance Qualified Code(s): G30.9 - Alzheimer' s disease, unspecified; F02.81 - Dementia in other diseases classified elsewhere with behavioral disturbance (4) Hypothyroidism Current Visit: Yes Status: Chronic Assessment and plan: Resume Synthroid (5) Hypertension Current Visit: Yes Status: Chronic Assessment and plan: Resume home medications (6) DVT prophylaxis Current Visit: Yes Status: Acute Assessment and plan: Heparin drip - Time Spent With Patient Total time spent is greater than 50% in coordination of care (as documented) at patient's floor/unit and/or counseling patient: 25 - 35 minutes - Subjective Interval history: Feeling much better after full liquid diet. No events overnight. No nausea. No vomiting. - Constitutional Vitals: Temp Pulse Resp BP Pulse Ox 98.6 F 76 14 127/73 97 03/18/18 07:44 03/18/18 07:44 03/18/18 07:44 03/18/18 07:44 03/18/18 07:44 Exam: Physical exam Gen: Comfortable, laying in bed, in no visible distress HEENT: Normocephalic, atraumatic. No conjunctival icterus. Moist oral mucosa. Neck: Supple Lungs: Clear to auscultation, no foreign sounds Heart: Normal S1-S2, no murmurs rubs or gallops Abdomen: Normoactive bowel sounds, no guarding rigidity, minimal periumbilical tenderness, YOUNG drain in place Extremities: No edema clubbing or cyanosis Neuro: Alert oriented 3, no focal deficits Skin: No skin lesions Internal Medicine: Result - Labs CBC & Chem 7: 03/18/18 04:34 03/18/18 04:34 Labs: Short CBC 03/18/18 Range/Units 04:34 WBC 14.4 H (4.3-11.1) K/mcL Hgb 9.6 L (11.5-15.4) g/dL Hct 29.0 L (35.3-44.9) % Plt Count 252 (140-400) K/mcL Neutrophils # 7.5 (1.6-8.9) K/mcL BMP 03/18/18 04:34 Sodium 136 Potassium 3.1 L Chloride 103 Carbon Dioxide 26 BUN 7 L Creatinine 0.48 L Glucose 112 H Calcium 8.3 L - ABG Interpretation ABG results: PT/INR, D-dimer PT 17.0 Seconds (9.4-12.1) H 03/14/18 10:56 - VTE Reasons for not Prescribing Prophylaxis: Not indicated-Anticoagulated or INR therapeutic Documentation of Mechanical Device: Intermittent pneumatic compression device Consult Discharge Plan - Plan Referrals: Laura Pratt DO [Primary Care Provider] -
[2018-03-18] MEDS: Haloperidol Lactate 5 MG/ML VIAL IVP PRN ×2 (16:01→23:49)
--- NOTE | 2018-03-18 16:28 | General Surgery Progress Note ---
<Vinod Bermudez R - Last Filed: 03/18/18 17:47> Date of Encounter: 03/18/18 Time of Encounter: 09:30 - Assessment and Plan (1) Acute cholecystitis Current Visit: Yes Status: Acute POD #3 s/p laparoscopic cholecystectomy converted into open cholecystectomy susan Spain Leukocytosis improving. Afebrile Pain responding to medication PLAN: Continue levaquin, flagyl, pain, and nausea medications Daily wound care - C/D/I May resume Xarelto today from a surgical standpoint - per primary team Tolerating regular diet Patient may be discharged from a surgical standpoint pending primary team evaluation (2) Alzheimer disease Current Visit: Yes Status: Acute Pt less confused this morning. Becomes increasingly confused later in the day Qualifiers: Alzheimer's disease onset: unspecified onset Dementia behavioral disturbance: with behavioral disturbance Qualified Code(s): G30.9 - Alzheimer' s disease, unspecified; F02.81 - Dementia in other diseases classified elsewhere with behavioral disturbance Subjective Patient reports: no new complaints, feels better, still having pain, pain is less, tolerating liquids well, voiding w/o difficulty, flatus, bowel movement, afebrile Objective Vital Signs - Last 8 Hours Temp Pulse Resp BP Pulse Ox 03/18/18 14:40 98.4 F 81 14 117/73 98 03/18/18 11:26 99.2 F 78 14 131/82 99 Intake and Output 03/18/18 03/18/18 03/18/18 07:59 15:59 23:59 Intake Total 200 / 200 1820 / 1820 Output Total 525 / 525 250 / 250 Balance -325 / -325 1570 / 1570 Intake: IV Fluids 100 / 100 1100 / 1100 Lactated Ringers 1,000 ML @ 75 1000 / 1000 mls/hr IVC .[id number] [facility] Rx#: [id number] Flagyl Premix 500 MG/100 ML 500 100 / 100 100 / 100 mg In 100 ml @ 100 mls/hr IVPB Q8HR [facility] Rx#:[id number] Oral 100 / 100 720 / 720 Output: Urine 500 / 500 250 / 250 Wound Drainage 25 / 25 Right Upper Abdomen 25 / 25 Other: Meal Lunch Percent of Meal Consumed 75% Stool Size Small Stool Consistency loose Stool Characteristics Foamy Stool Color Brown # Voids 1 # Bowel Movements 0 1 - General physical appearance well developed, well nourished, no distress - Eyes normal ocular movement - Respiratory normal expansion, normal respiratory effort, clear to auscultation - Cardiovascular Cardiovascular exam: Present: RRR, no murmurs/rubs/gallops - Abdomen Abdomen: Present: bowel sounds present, soft, tender (appropriately). Absent: distended, guarding, rebound, rigid - Incision Incision: Present: clean and dry, intact - Integumentary no rash, no growths, no abnormal pigmentation - Neurologic CN 2-12 grossly intact - Psychiatric oriented to time, oriented to person, oriented to place, speech is normal, memory intact - Labs 03/18/18 04:34 03/18/18 04:34 Diabetes panel 03/18/18 Range/Units 04:34 Sodium 136 (136-145) mEq/L Potassium 3.1 L (3.5-5.1) mEq/L Chloride 103 (98-107) mEq/L Carbon Dioxide 26 (23-29) mEq/L BUN 7 L (8-23) mg/dL Creatinine 0.48 L (0.60-1.20) mg/dL Glucose 112 H (70-105) mg/dL Calcium 8.3 L (8.6-10.3) mg/dL Calcium panel 03/18/18 Range/Units 04:34 Calcium 8.3 L (8.6-10.3) mg/dL Pituitary panel 03/18/18 Range/Units 04:34 Sodium 136 (136-145) mEq/L Potassium 3.1 L (3.5-5.1) mEq/L Chloride 103 (98-107) mEq/L Carbon Dioxide 26 (23-29) mEq/L BUN 7 L (8-23) mg/dL Creatinine 0.48 L (0.60-1.20) mg/dL Glucose 112 H (70-105) mg/dL Calcium 8.3 L (8.6-10.3) mg/dL Adrenal panel 03/18/18 Range/Units 04:34 Sodium 136 (136-145) mEq/L Potassium 3.1 L (3.5-5.1) mEq/L Chloride 103 (98-107) mEq/L Carbon Dioxide 26 (23-29) mEq/L BUN 7 L (8-23) mg/dL Creatinine 0.48 L (0.60-1.20) mg/dL Glucose 112 H (70-105) mg/dL Calcium 8.3 L (8.6-10.3) mg/dL - VTE Reasons for not Prescribing Prophylaxis: Not indicated-Anticoagulated or INR therapeutic Documentation of Mechanical Device: Intermittent pneumatic compression device Consult Discharge Plan - Plan Additional Instructions: General Surgical Discharge Instructions 1. No pushing, pulling, or lifting greater than 15 lbs for 6 weeks. 2. You may shower beginning today, but no tub baths, soaking, or swimming for 2 weeks. 3. You may resume driving when you are off narcotics and are safe to react in a car. 4. Take ibuprofen every 8 hours for discomfort. If this does not relieve discomfort, you may take the as needed Percocet. Take narcotics as directed. Do not take more narcotics then directed and do not share your narcotics with any other person. Do not drink alcohol while on narcotics. 5. Take stool softeners (Colace) or a water based laxative (Miralax) while taking narcotics. You may hold for loose stools. 6. Report any fevers greater than 100.5F, increase abdominal discomfort, drainage that looks like pus, increased redness or pain at the surgical site, or any vomiting. 7. Report any pain in the calves, shortness of breath, or rapid heartbeat. 8. Follow-up in the office as directed: March 28, 2018 at 8:45 AM 9. If you were prescribed antibiotics, take them as prescribed. Referrals: Laura Pratt DO [Primary Care Provider] - Lily Martinez CNP [Advanced Practice Nurse] - Prescriptions: Ondansetron ODT [Zofran ODT] 4 mg SL Q6HR #15 tab.rapdis OxyCODONE/APAP 7.5/325 [Percocet 7.5/325 MG] 1 each PO Q6HR PRN 7 Days #26 tablet PRN Reason: Pain Docusate [Colace] 100 mg PO BID #30 capsule Ibuprofen 800 mg PO TID #42 tablet <Milton Spain - Last Filed: 03/19/18 12:19> Date of Encounter: 03/18/18 - Assessment and Plan (1) Acute cholecystitis Current Visit: Yes Status: Acute Objective Vital Signs - Last 8 Hours Temp Pulse Resp BP Pulse Ox 03/19/18 05:31 98.9 F 76 15 106/67 94 Intake and Output 03/18/18 03/19/18 03/19/18 23:59 07:59 15:59 Intake Total 340 / 340 100 / 100 580 / 580 Output Total 0 / 0 20 / 20 Balance 340 / 340 80 / 80 580 / 580 Intake: IV Fluids 100 / 100 100 / 100 100 / 100 Flagyl Premix 500 MG/100 ML 500 100 / 100 100 / 100 100 / 100 mg In 100 ml @ 100 mls/hr IVPB Q8HR [facility] Rx#:[id number] Oral 240 / 240 0 / 0 480 / 480 Output: Urine 0 / 0 Wound Drainage Right Upper Abdomen Other: Meal Dinner Breakfast Percent of Meal Consumed 75% 75% Stool Size Small Stool Consistency loose Stool Color Brown # Voids 1 1 1 # Urine Diapers 1 # Bowel Movements 1 Weight 95.3 kg Patient Weight 03/19/18 23:59 Weight 95.3 kg - Labs 03/19/18 05:28 03/19/18 05:28 Diabetes panel 03/19/18 Range/Units 05:28 Sodium 138 (136-145) mEq/L Potassium 2.8 L (3.5-5.1) mEq/L Chloride 102 (98-107) mEq/L Carbon Dioxide 27 (23-29) mEq/L BUN 7 L (8-23) mg/dL Creatinine 0.46 L (0.60-1.20) mg/dL Glucose 112 H (70-105) mg/dL Calcium 8.5 L (8.6-10.3) mg/dL Calcium panel 03/19/18 Range/Units 05:28 Calcium 8.5 L (8.6-10.3) mg/dL Pituitary panel 03/19/18 Range/Units 05:28 Sodium 138 (136-145) mEq/L Potassium 2.8 L (3.5-5.1) mEq/L Chloride 102 (98-107) mEq/L Carbon Dioxide 27 (23-29) mEq/L BUN 7 L (8-23) mg/dL Creatinine 0.46 L (0.60-1.20) mg/dL Glucose 112 H (70-105) mg/dL Calcium 8.5 L (8.6-10.3) mg/dL Adrenal panel 03/19/18 Range/Units 05:28 Sodium 138 (136-145) mEq/L Potassium 2.8 L (3.5-5.1) mEq/L Chloride 102 (98-107) mEq/L Carbon Dioxide 27 (23-29) mEq/L BUN 7 L (8-23) mg/dL Creatinine 0.46 L (0.60-1.20) mg/dL Glucose 112 H (70-105) mg/dL Calcium 8.5 L (8.6-10.3) mg/dL - Attending Attestation I examined this patient and my medical decision-making was reviewed with the Resident Physician. I agree with the documented findings, disposition and treatment plan as described except to the extent set forth below. I reviewed the above assessment and evaluation and agree with the above plan. Continue with YOUNG drainage at this time. Okay to further advance diet. As she continues to further tolerate food I think will be okay for her to be discharged home and will make certain she has a follow-up appointment to see us in the office.
[2018-03-18] MEDS: Levofloxacin 750 MG/150 ML 750 MG/150 ML BAG IVPB SCH (18:10)
[2018-03-19 05:46] LABS: Basophils # 0.1 K/mcL (0.0-0.2); Basophils % 0.7 %; Eosinophils # 0.1 K/mcL (0.0-0.6); Eosinophils % 0.6 %; Hematocrit 29.1 % (35.3-44.9); Hemoglobin 9.5 g/dL (11.5-15.4); Immature Granulocytes % 13.1 % (0-4); Lymphocytes # 2.9 K/mcL (0.6-4.6); Lymphocytes % 17.9 %; Mean Corpuscular HGB Conc 32.6 g/dL (31.6-35.5); Mean Corpuscular Hemoglobin 27.5 pg (28.0-33.3); Mean Corpuscular Volume 84.1 fL (83.0-100.0); Mean Platelet Volume 9.5 fL (9.4-12.4); Monocytes # 1.6 K/mcL (0.0-1.3); Monocytes % 9.9 %; Neutrophils # 9.4 K/mcL (1.6-8.9); Nucleated Red Blood Cells 0.2 /100 WBC (0); Platelet Count 330 K/mcL (140-400); Red Blood Count 3.46 M/mcL (3.82-4.97); Red Cell Distribution Width 14.3 % (11.5-14.5); Segmented Neutrophils % 57.8 %
[2018-03-19 06:02] LABS: BUN/Creatinine Ratio 15 (6-26); Blood Urea Nitrogen 7 mg/dL (8-23); Calcium 8.5 mg/dL (8.6-10.3); Carbon Dioxide 27 mEq/L (23-29); Chloride 102 mEq/L (98-107); Glucose 112 mg/dL (70-105); Magnesium 1.7 mg/dL (1.6-2.6); Osmolality,Calculated 285 (280-300); Potassium 2.8 mEq/L (3.5-5.1); Sodium 138 mEq/L (136-145); eGFR For African Americans > 60 (> 60); eGFR For Non-African Americans > 60 (> 60)
[2018-03-19 06:17] LABS: Platelet Estimate Normal (Normal); Reactive Lymphocytes Present (Not Present)
[2018-03-19 06:18] LABS: Large Platelets Present (Not Present)
[2018-03-19] MEDS: *HR* Heparin 5,000 UNIT/ML VIAL SQ SCH (06:27)
--- NOTE | 2018-03-19 07:15 | General Surgery Progress Note ---
Date of Encounter: 03/19/18 Time of Encounter: 09:02 - Assessment and Plan (1) Acute cholecystitis Current Visit: Yes Status: Acute POD #4 s/p open cholecystectomy with Dr. Spain Pain improving & responding to medication Incision C/D/I without erythema or warmth PLAN: Tolerating regular diet Daily wound care May resume Xarelto from a surgical standpoint - per primary team 3 days of antibiotics so far - recommend continuing a 7 day course of Levaquin and Flagyl Patient may be discharged from a surgical standpoint, pending primary team Subjective Patient reports: no new complaints, feels better, still having pain, pain is less, tolerating a regular diet, voiding w/o difficulty, flatus, bowel movement Objective Vital Signs - Last 8 Hours Temp Pulse Resp BP Pulse Ox 03/19/18 05:31 98.9 F 76 15 106/67 94 03/18/18 23:36 98.2 F 91 16 111/58 93 Intake and Output 03/18/18 03/18/18 03/19/18 15:59 23:59 07:59 Intake Total 1820 / 1820 340 / 340 100 / 100 Output Total 250 / 250 0 / 0 20 / 20 Balance 1570 / 1570 340 / 340 80 / 80 Intake: IV Fluids 1100 / 1100 100 / 100 100 / 100 Lactated Ringers 1,000 ML @ 75 1000 / 1000 mls/hr IVC .[id number] [facility] Rx#: [id number] Flagyl Premix 500 MG/100 ML 500 100 / 100 100 / 100 100 / 100 mg In 100 ml @ 100 mls/hr IVPB Q8HR [facility] Rx#:[id number] Oral 720 / 720 240 / 240 0 / 0 Output: Urine 250 / 250 0 / 0 Wound Drainage 20 / 20 Right Upper Abdomen 20 / 20 Other: Meal Lunch Dinner Percent of Meal Consumed 75% 75% Stool Size Small Stool Consistency loose Stool Characteristics Foamy Stool Color Brown # Voids 1 1 1 # Bowel Movements 1 Weight 95.3 kg Patient Weight 03/19/18 23:59 Weight 95.3 kg - General physical appearance well developed, well nourished, no distress - Eyes normal ocular movement - Respiratory normal expansion, normal respiratory effort - Cardiovascular Cardiovascular exam: Present: RRR, no murmurs/rubs/gallops - Abdomen Abdomen: Present: bowel sounds present, soft, tender (appropriately). Absent: distended, guarding, rebound, rigid - Incision Incision: Present: clean and dry, intact. Absent: draining, erythema, purulent - Integumentary no rash, no growths, no abnormal pigmentation - Neurologic CN 2-12 grossly intact, normal coordination - Labs 03/19/18 05:28 03/19/18 05:28 Diabetes panel 03/19/18 Range/Units 05:28 Sodium 138 (136-145) mEq/L Potassium 2.8 L (3.5-5.1) mEq/L Chloride 102 (98-107) mEq/L Carbon Dioxide 27 (23-29) mEq/L BUN 7 L (8-23) mg/dL Creatinine 0.46 L (0.60-1.20) mg/dL Glucose 112 H (70-105) mg/dL Calcium 8.5 L (8.6-10.3) mg/dL Calcium panel 03/19/18 Range/Units 05:28 Calcium 8.5 L (8.6-10.3) mg/dL Pituitary panel 03/19/18 Range/Units 05:28 Sodium 138 (136-145) mEq/L Potassium 2.8 L (3.5-5.1) mEq/L Chloride 102 (98-107) mEq/L Carbon Dioxide 27 (23-29) mEq/L BUN 7 L (8-23) mg/dL Creatinine 0.46 L (0.60-1.20) mg/dL Glucose 112 H (70-105) mg/dL Calcium 8.5 L (8.6-10.3) mg/dL Adrenal panel 03/19/18 Range/Units 05:28 Sodium 138 (136-145) mEq/L Potassium 2.8 L (3.5-5.1) mEq/L Chloride 102 (98-107) mEq/L Carbon Dioxide 27 (23-29) mEq/L BUN 7 L (8-23) mg/dL Creatinine 0.46 L (0.60-1.20) mg/dL Glucose 112 H (70-105) mg/dL Calcium 8.5 L (8.6-10.3) mg/dL - VTE Reasons for not Prescribing Prophylaxis: Not indicated-Anticoagulated or INR therapeutic Documentation of Mechanical Device: Intermittent pneumatic compression device Consult Discharge Plan - Plan Additional Instructions: General Surgical Discharge Instructions 1. No pushing, pulling, or lifting greater than 15 lbs for 6 weeks. 2. You may shower beginning today, but no tub baths, soaking, or swimming for 2 weeks. 3. You may resume driving when you are off narcotics and are safe to react in a car. 4. Take ibuprofen every 8 hours for discomfort. If this does not relieve discomfort, you may take the as needed Percocet. Take narcotics as directed. Do not take more narcotics then directed and do not share your narcotics with any other person. Do not drink alcohol while on narcotics. 5. Take stool softeners (Colace) or a water based laxative (Miralax) while taking narcotics. You may hold for loose stools. 6. Report any fevers greater than 100.5F, increase abdominal discomfort, drainage that looks like pus, increased redness or pain at the surgical site, or any vomiting. 7. Report any pain in the calves, shortness of breath, or rapid heartbeat. 8. Follow-up in the office as directed: March 28, 2018 at 8:45 AM 9. If you were prescribed antibiotics, take them as prescribed. Referrals: Laura Pratt DO [Primary Care Provider] - Lily Martinez CNP [Advanced Practice Nurse] - Prescriptions: Ondansetron ODT [Zofran ODT] 4 mg SL Q6HR #15 tab.rapdis OxyCODONE/APAP 7.5/325 [Percocet 7.5/325 MG] 1 each PO Q6HR PRN 7 Days #26 tablet PRN Reason: Pain Docusate [Colace] 100 mg PO BID #30 capsule Ibuprofen 800 mg PO TID #42 tablet
[2018-03-19] MEDS: MetroNIDAZOLE 500 MG/100 ML 500 MG/100 ML BAG IVPB SCH (09:46)
[2018-03-19] MEDS: hydroCHLOROthiazide 25 MG TABLET PO SCH (09:46)
[2018-03-19] MEDS: Fluticasone Propionate Nasal 50 MCG/SPRAY BOTTLE NS SCH (09:46)
[2018-03-19] MEDS ORDERED: Potassium Chloride Elixir 20 MEQ/15 ML UDC PO SCH (10:30)
[2018-03-19 12:48] VITALS: BP 116/75
--- NOTE | 2018-03-19 12:53 | Discharge Summary ---
- NOTES TO OUTPATIENT PROVIDER Notes to Outpatient Provider: Follow up with surgery is scheduled Orders not resulted at time of discharge: Pending orders 03/14/18 17:34 Culture,Blood [BC] Routine Date of Encounter: 03/19/18 Time of Encounter: 10:45 - Discharge Diagnosis (1) Acute cholecystitis Priority: Primary Status: Acute Assessment and Plan: Postop day 4 status post laparoscopic cholecystectomy converted into open cholecystectomy with Dr. 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 Holding Xarelto for surgery. Patient was diagnosed on 12/03/2017. She is already completed 3 months of anticoagulation. Although this was unprovoked, brachial vein was involved and no central veins. She denies any malignancy. We will could consider a discussion about stopping anticoagulation. Repeat venous Doppler ultrasound of upper extremities Did not show DVT. She should discuss stopping anticoagulation with her primary care provider in clinic. (3) Alzheimer disease Priority: Secondary Status: Suspected Assessment and Plan: Diagnoses should be clarified in clinic. Qualifiers: Alzheimer's disease onset: unspecified onset Dementia behavioral disturbance: with behavioral disturbance Qualified Code(s): G30.9 - Alzheimer' s disease, unspecified; F02.81 - Dementia in other diseases classified elsewhere with behavioral disturbance (4) Hypothyroidism Priority: Secondary Status: Chronic Assessment and Plan: Resume Synthroid (5) Hypertension Priority: Secondary Status: Chronic Assessment and Plan: Resume home medications Hospital course: Ms. Walden is a 77 year old female with a past medical history of hypothyroidism, brachial vein DVT on Xarelto, and Alzheimer's dementia who presented to the emergency room on 03/13/2018 with abdominal pain and epigastric area, nausea and vomiting. A ultrasound of the abdomen was obtained which showed cholelithiasis and cholecystitis. Surgical consultation and a cholecystectomy was scheduled. This was performed Ascorbic which had to be extended to open during surgery. Patient received intravenous Levaquin and Flagyl during this hospitalization. A total of 7 days of antibiotics will be given. Her diet was advanced to regular diet which she is tolerating very well. Off note, patient has developed diarrhea which could be related to a cystectomy versus antibiotics versus C. difficile colitis. A sample for stool C. difficile antigen a and B was collected. This needs to be followed by primary care doctor. Patient was made aware. Follow-up with surgery as scheduled. - Time Spent with Patient Total time spent providing and/or coordinating discharge services: - Discharge Medications Prescriptions: Ondansetron ODT [Zofran ODT] 4 mg SL Q6HR #15 tab.rapdis OxyCODONE/APAP 7.5/325 [Percocet 7.5/325 MG] 1 each PO Q6HR PRN 7 Days #26 tablet PRN Reason: Pain Docusate [Colace] 100 mg PO BID #30 capsule Ibuprofen 800 mg PO TID #42 tablet Home Medications: Fluticasone Propionate Nasal [Flonase] 1 puff NS DAILY 03/13/18 [History] Imiquimod [Zyclara] 1 appl TP DAILY 03/13/18 [History] Levothyroxine [Synthroid] 50 mcg PO 30 03/13/18 [History] Montelukast [Singulair] 10 mg PO DAILY 03/13/18 [History] Omeprazole [PriLOSEC] 40 mg PO DAILY 03/13/18 [History] Ondansetron ODT [Zofran ODT] 4 mg SL Q4HR PRN 03/13/18 [History] Rivaroxaban [Xarelto] 20 mg PO DAILY 03/13/18 [History] Sertraline [Zoloft] 150 mg PO DAILY 03/13/18 [History] hydroCHLOROthiazide [Hydrochlorothiazide] 25 mg PO DAILY 03/13/18 [History] Docusate [Colace] 100 mg PO BID #30 capsule 03/19/18 [Rx] Ibuprofen 800 mg PO TID #42 tablet 03/19/18 [Rx] Ondansetron ODT [Zofran ODT] 4 mg SL Q6HR #15 tab.rapdis 03/19/18 [Rx] OxyCODONE/APAP 7.5/325 [Percocet 7.5/325 MG] 1 each PO Q6HR PRN 7 Days #26 tablet 03/19/18 [Rx] Allergies/Adverse Reactions: 3 Allergy/AdvReac Type Severity Reaction Status Date / Time No Known Allergies Allergy Verified 03/13/18 19:10 Date of admission: 03/14/18 00:45 Primary care physician: Lizz Bob Discharging clinician: Stefanie Will Anticipated date of discharge: 03/19/18 - Constitutional Vitals: Temp Pulse Resp BP Pulse Ox 98.2 F 86 15 116/75 92 03/19/18 12:47 03/19/18 12:47 03/19/18 12:47 03/19/18 12:47 03/19/18 12:47 Exam: Physical exam Gen: Comfortable, laying in bed, in no visible distress HEENT: Normocephalic, atraumatic. No conjunctival icterus. Moist oral mucosa. Neck: Supple Lungs: Clear to auscultation, no foreign sounds Heart: Normal S1-S2, no murmurs rubs or gallops Abdomen: Normoactive bowel sounds, no guarding rigidity, mild tenderness in the right upper quadrant surgical site Extremities: No edema clubbing or cyanosis Neuro: Alert oriented 3, no focal deficits Skin: No skin lesions - Patient Status Disposition: Home, Self-Care Condition: Good Functional capacity at discharge: independent ambulation Overall status at discharge: patient is progressing back to baseline - Discharge Instructions Follow Up With: Laura Pratt DO [Primary Care Provider] - Lily Martinez [employer] [Advanced Practice Nurse] - Additional Instructions: General Surgical Discharge Instructions 1. No pushing, pulling, or lifting greater than 15 lbs for 6 weeks. 2. You may shower beginning today, but no tub baths, soaking, or swimming for 2 weeks. 3. You may resume driving when you are off narcotics and are safe to react in a car. 4. Take ibuprofen every 8 hours for discomfort. If this does not relieve discomfort, you may take the as needed Percocet. Take narcotics as directed. Do not take more narcotics then directed and do not share your narcotics with any other person. Do not drink alcohol while on narcotics. 5. Take stool softeners (Colace) or a water based laxative (Miralax) while taking narcotics. You may hold for loose stools. 6. Report any fevers greater than 100.5F, increase abdominal discomfort, drainage that looks like pus, increased redness or pain at the surgical site, or any vomiting. 7. Report any pain in the calves, shortness of breath, or rapid heartbeat. 8. Follow-up in the office as directed: March 28, 2018 at 8:45 AM 9. If you were prescribed antibiotics, take them as prescribed. - Diet and Activity Activity: resume usual activities as tolerated Diet: advance to your usual diet - VTE Reasons for not Prescribing Prophylaxis: Not indicated-Anticoagulated or INR therapeutic Documentation of Mechanical Device: Intermittent pneumatic compression device
== END 2018-03-19 15:13 | disposition home or self-care (01) | DRG 415 ==
LOC: 3ANU 15:58 → EMEROO 15:58 → 3ANU 21:13 → 3NENU 03-14 00:44 → 3ANU 03-17 15:34
PROVIDERS: ADMIT Internal Medicine; ATTEND Internal Medicine

== ENCOUNTER 2021-01-19 10:29 | Inpatient (IN) ==
[2021-01-19] MEDS ORDERED: Naloxone 0.4 MG/ML INJ IVP PRN (10:38)
[2021-01-19] MEDS ORDERED: Ondansetron 4 MG/2 ML VIAL IVP PRN (10:43)
[2021-01-19] MEDS ORDERED: Melatonin 3 MG TABLET PO PRN (10:43)
[2021-01-19 12:34] LABS: Hematocrit 30.1 % (35.3-44.9); Hemoglobin 9.3 g/dL (11.5-15.4); Mean Corpuscular HGB Conc 30.9 g/dL (31.6-35.5); Mean Corpuscular Hemoglobin 26.8 pg (28.0-33.3); Mean Corpuscular Volume 86.7 fL (83.0-100.0); Mean Platelet Volume 9.5 fL (9.4-12.4); Platelet Count 352 K/mcL (140-400); Red Blood Count 3.47 M/mcL (3.82-4.97); Red Cell Distribution Width 15.3 % (11.5-14.5); White Blood Count 11.2 K/mcL (4.3-11.1)
[2021-01-19 12:55] LABS: BUN/Creatinine Ratio 25 (6-26); Blood Urea Nitrogen 16 mg/dL (8-23); Calcium 8.7 mg/dL (8.6-10.3); Carbon Dioxide 26 mEq/L (23-29); Chloride 106 mEq/L (98-107); Glucose 93 mg/dL (70-105); Osmolality,Calculated 291 (280-300); Potassium 3.6 mEq/L (3.5-5.1); Sodium 140 mEq/L (136-145); eGFR For African Americans > 60 (> 60); eGFR For Non-African Americans > 60 (> 60)
[2021-01-19 14:18] LABS: Bacteria,Urine Few per hpf (None-Few); Bilirubin,Urine Negative (Negative); Blood,Urine Negative (Negative); Clarity,Urine Turbid (Clear); Color,Urine Yellow (Yellow); Glucose,Urine (UA) Normal (Normal); Ketones,Urine Negative (Negative); Leukocyte Esterase,Urine Large (Negative); Mucus,Urine Few per lpf (None-Few); Nitrite,Urine Positive (Negative); Protein,Urine Trace mg/dL (Neg-Trace); Renal Epithelial Cells,Urine Few per hpf (None-Few); Specific Gravity,Urine 1.018 (1.010-1.025); Squamous Epithelial Cell,Urine Moderate per hpf (None-Few); Transitional Epi Cells,Urine Few per hpf (None-Few); Urobilinogen,Urine Normal (Normal); WBC,Urine TNTC per hpf (0-3)
[2021-01-19] MEDS: Gabapentin 100 MG CAPSULE PO SCH ×2 (14:41→20:38)
[2021-01-19] MEDS: QUEtiapine Fumarate 25 MG TABLET PO SCH ×2 (14:41→20:37)
[2021-01-19] MEDS: Acetaminophen 325 MG TABLET PO PRN (20:37)
[2021-01-20 06:52] LABS: Influenza A PCR Negative (Negative); Influenza B PCR Negative (Negative); Resp. Syncytial Virus PCR Negative (Negative); SARS-CoV-2 by PCR (In House) Negative (Negative)
[2021-01-20] MEDS ORDERED: *HR* FentaNYL (PF) 100 MCG/2 ML VIAL ONE ×2 (10:54→17:00)
[2021-01-20] MEDS ORDERED: *HR* Propofol 200 MG/20 ML VIAL IVP ONE ×2 (10:55→14:27)
[2021-01-20] MEDS ORDERED: Lidocaine -MPF 2% 2 ML VIAL ONE (10:55)
[2021-01-20] MEDS ORDERED: *HR* Succinylcholine 200 MG/10 ML VIAL IVP ONE (10:55)
[2021-01-20] MEDS ORDERED: Ondansetron 4 MG/2 ML VIAL ONE (10:55)
[2021-01-20] MEDS: Aspirin Enteric Coated 81 MG Tablet PO SCH (13:42)
[2021-01-20] MEDS: Gabapentin 100 MG CAPSULE PO SCH ×2 (13:43→23:48)
[2021-01-20] MEDS: QUEtiapine Fumarate 25 MG TABLET PO SCH ×2 (13:43→23:49)
[2021-01-20] MEDS ORDERED: TOTAL JOINT MIXTURE (100ML) INTRAART ONE (13:45)
[2021-01-20] MEDS ORDERED: Povidone-Iodine 45 ML, Sodium Chloride IRRigation 1,000 ML IR ONE (13:45)
[2021-01-20] MEDS ORDERED: EPHEDrine 50 MG/ML VIAL ONE (13:49)
[2021-01-20] MEDS ORDERED: *HR* Vasopressin 20 UNIT/ML VIAL ONE (13:51)
[2021-01-20] MEDS ORDERED: Gentamicin 310 MG in 0.9 % Sodium Chloride 100 ML IVPB ONE (14:26)
[2021-01-20] MEDS ORDERED: *HR* Rocuronium Bromide 50 MG/5 ML VIAL ONE ×2 (14:28→16:40)
[2021-01-20] MEDS ORDERED: Tranexamic Acid 1,000 MG/10 ML VIAL ONE ×2 (14:29→16:53)
[2021-01-20] MEDS ORDERED: Vancomycin 1,000 MG VIAL ONE (14:30)
[2021-01-20] MEDS ORDERED: Ethanol\\Acetic Acid\\Na Ace\\Ben 1,000 ML IRRIG.SOLN IR ONE ×2 (14:32→14:48)
[2021-01-20] MEDS ORDERED: Acetaminophen IV 1,000 MG/100 ML BAG IVPB ONE (14:55)
[2021-01-20] MEDS ORDERED: Dexamethasone 4 MG/ML VIAL ONE (16:14)
[2021-01-20] MEDS ORDERED: Sugammadex Sodium 200 MG/2 ML VIAL IV ONE (19:56)
[2021-01-20] MEDS ORDERED: *HR* HYDROmorphone (PF) 1 MG/ML SYRINGE ONE ×3 (21:30→22:32)
[2021-01-20] MEDS: *HR* HYDROmorphone (PF) 1 MG/ML SYRINGE IVP PRN ×10 (21:32→22:46)
[2021-01-20] MEDS ORDERED: Ringers Solution, Lactated 1,000 ML ONE ×2 (21:46→22:55)
[2021-01-20] MEDS ORDERED: *HR* Magnesium Sulfate 1 GM/2 ML VIAL ONE (22:33)
[2021-01-20] MEDS: ceFAZolin 2,000 MG in 0.9 % Sodium Chloride 100 ML IVPB SCH (23:54)
[2021-01-21] MEDS ORDERED: CeFAZolin 2 GM/120 ML BAG IVPB SCH
[2021-01-21 02:16] LABS: Basophils # 0.1 K/mcL (0.0-0.2); Basophils % 0.4 %; Hematocrit 29.8 % (35.3-44.9); Hemoglobin 9.2 g/dL (11.5-15.4); Immature Granulocytes % 1.6 % (0-4); Lymphocytes # 1.5 K/mcL (0.6-4.6); Lymphocytes % 6.8 %; Mean Corpuscular HGB Conc 30.9 g/dL (31.6-35.5); Mean Corpuscular Hemoglobin 27.1 pg (28.0-33.3); Mean Corpuscular Volume 87.9 fL (83.0-100.0); Mean Platelet Volume 9.6 fL (9.4-12.4); Monocytes # 1.3 K/mcL (0.0-1.3); Monocytes % 5.7 %; Neutrophils # 18.9 K/mcL (1.6-8.9); Platelet Count 360 K/mcL (140-400); Red Blood Count 3.39 M/mcL (3.82-4.97); Red Cell Distribution Width 14.5 % (11.5-14.5); Segmented Neutrophils % 85.5 %
[2021-01-21 02:17] LABS: White Blood Count 22.1 K/mcL (4.3-11.1)
[2021-01-21 02:34] LABS: BUN/Creatinine Ratio 18 (6-26); Blood Urea Nitrogen 16 mg/dL (8-23); Carbon Dioxide 23 mEq/L (23-29); Chloride 112 mEq/L (98-107); Glucose 141 mg/dL (70-105); Osmolality,Calculated 296 (280-300); Potassium 4.6 mEq/L (3.5-5.1); Sodium 141 mEq/L (136-145); eGFR For African Americans > 60 (> 60); eGFR For Non-African Americans 60 (> 60)
[2021-01-21] MEDS: Acetaminophen 325 MG TABLET PO PRN ×2 (06:22→15:27)
[2021-01-21] MEDS: ceFAZolin 2,000 MG in 0.9 % Sodium Chloride 100 ML IVPB SCH ×2 (08:01→17:01)
[2021-01-21] MEDS: QUEtiapine Fumarate 25 MG TABLET PO SCH ×3 (08:01→20:56)
[2021-01-21] MEDS: Aspirin Enteric Coated 81 MG Tablet PO SCH (08:01)
[2021-01-21] MEDS: Gabapentin 100 MG CAPSULE PO SCH ×3 (08:02→20:56)
[2021-01-21] MEDS ORDERED: Haloperidol Lactate 5 MG/ML VIAL IVP ONE (15:30)
[2021-01-21] MEDS: 0.9 % Sodium Chloride 1,000 ML IVC SCH (16:12)
[2021-01-22] MEDS: ceFAZolin 2,000 MG in 0.9 % Sodium Chloride 100 ML IVPB SCH ×3 (00:35→17:46)
[2021-01-22 01:51] LABS: Basophils % 0.3 %; Eosinophils # 0.2 K/mcL (0.0-0.6); Eosinophils % 2.3 %; Hematocrit 23.8 % (35.3-44.9); Lymphocytes # 2.3 K/mcL (0.6-4.6); Mean Corpuscular HGB Conc 30.3 g/dL (31.6-35.5); Mean Corpuscular Hemoglobin 27.3 pg (28.0-33.3); Mean Corpuscular Volume 90.2 fL (83.0-100.0); Mean Platelet Volume 9.9 fL (9.4-12.4); Monocytes # 0.7 K/mcL (0.0-1.3); Monocytes % 7.2 %; Neutrophils # 6.7 K/mcL (1.6-8.9); Nucleated Red Blood Cells 0.2 /100 WBC (0); Platelet Count 268 K/mcL (140-400); Red Blood Count 2.64 M/mcL (3.82-4.97); Red Cell Distribution Width 15.1 % (11.5-14.5); Segmented Neutrophils % 66.2 %
[2021-01-22 01:52] LABS: Hemoglobin 7.2 g/dL (11.5-15.4); White Blood Count 10.1 K/mcL (4.3-11.1)
[2021-01-22 02:07] LABS: BUN/Creatinine Ratio 29 (6-26); Blood Urea Nitrogen 25 mg/dL (8-23); Calcium 7.6 mg/dL (8.6-10.3); Carbon Dioxide 24 mEq/L (23-29); Chloride 108 mEq/L (98-107); Glucose 108 mg/dL (70-105); Osmolality,Calculated 293 (280-300); Potassium 3.9 mEq/L (3.5-5.1); Sodium 139 mEq/L (136-145); eGFR For African Americans > 60 (> 60); eGFR For Non-African Americans > 60 (> 60)
[2021-01-22] MEDS: 0.9 % Sodium Chloride 1,000 ML IVC SCH (06:11)
[2021-01-22] MEDS: Gabapentin 100 MG CAPSULE PO SCH ×3 (07:42→22:22)
[2021-01-22] MEDS: QUEtiapine Fumarate 25 MG TABLET PO SCH ×3 (07:42→22:22)
[2021-01-22] MEDS: Aspirin Enteric Coated 81 MG Tablet PO SCH (07:42)
[2021-01-22] MEDS ORDERED: 0.9 % Sodium Chloride 250 ML IVC SCH (08:00)
[2021-01-22 08:42] LABS: Albumin 2.4 g/dL (3.5-5.7)
[2021-01-22] MEDS ORDERED: 0.9 % Sodium Chloride 1,000 ML IVC SCH (10:21)
[2021-01-22] MEDS ORDERED: *HR* LORazepam 2 MG/ML VIAL IM STA (17:32)
[2021-01-22 22:50] LABS: Hematocrit 26.3 % (35.3-44.9); Hemoglobin 8.1 g/dL (11.5-15.4)
[2021-01-23 04:38] LABS: Basophils # 0.1 K/mcL (0.0-0.2); Basophils % 0.6 %; Eosinophils # 0.3 K/mcL (0.0-0.6); Hematocrit 24.8 % (35.3-44.9); Hemoglobin 7.6 g/dL (11.5-15.4); Lymphocytes # 2.4 K/mcL (0.6-4.6); Lymphocytes % 22.1 %; Mean Corpuscular HGB Conc 30.6 g/dL (31.6-35.5); Mean Corpuscular Hemoglobin 27.1 pg (28.0-33.3); Mean Corpuscular Volume 88.6 fL (83.0-100.0); Mean Platelet Volume 9.7 fL (9.4-12.4); Monocytes # 0.8 K/mcL (0.0-1.3); Monocytes % 7.1 %; Neutrophils # 7.1 K/mcL (1.6-8.9); Nucleated Red Blood Cells 0.2 /100 WBC (0); Platelet Count 261 K/mcL (140-400); Red Cell Distribution Width 15.3 % (11.5-14.5); Segmented Neutrophils % 65.2 %; White Blood Count 10.9 K/mcL (4.3-11.1)
[2021-01-23 04:54] LABS: BUN/Creatinine Ratio 28 (6-26); Blood Urea Nitrogen 18 mg/dL (8-23); Carbon Dioxide 27 mEq/L (23-29); Chloride 109 mEq/L (98-107); Glucose 95 mg/dL (70-105); Osmolality,Calculated 288 (280-300); Potassium 3.9 mEq/L (3.5-5.1); Sodium 138 mEq/L (136-145); eGFR For African Americans > 60 (> 60); eGFR For Non-African Americans > 60 (> 60)
[2021-01-23] MEDS: QUEtiapine Fumarate 25 MG TABLET PO SCH (10:22)
[2021-01-23] MEDS: Gabapentin 100 MG CAPSULE PO SCH (10:22)
[2021-01-23] MEDS: Aspirin Enteric Coated 81 MG Tablet PO SCH (10:22)
[2021-01-23] MEDS: ceFAZolin 2,000 MG in 0.9 % Sodium Chloride 100 ML IVPB SCH ×2 (10:22)
[2021-01-23 11:00] LABS: Hematocrit 29.3 % (35.3-44.9)
[2021-01-23 11:44] VITALS: BP 121/72
[2021-01-23] MEDS: Acetaminophen 325 MG TABLET PO PRN (12:06)
== END 2021-01-23 16:54 | DRG 467 ==
LOC: 3ANU → SUATTDRO 11:05 → 3NENU 15:27
PROVIDERS: ADMIT Internal Medicine; ATTEND Internal Medicine

== ENCOUNTER 2021-02-24 19:04 | Observation (INO) ==
[2021-02-24 19:40] LABS: Basophils # 0.1 K/mcL (0.0-0.2); Basophils % 0.3 %; Eosinophils # 0.1 K/mcL (0.0-0.6); Eosinophils % 0.6 %; Hematocrit 33.5 % (35.3-44.9); Hemoglobin 10.1 g/dL (11.5-15.4); Immature Granulocytes % 0.8 % (0-4); Lymphocytes # 3.4 K/mcL (0.6-4.6); Lymphocytes % 18.8 %; Mean Corpuscular HGB Conc 30.1 g/dL (31.6-35.5); Mean Corpuscular Hemoglobin 26.9 pg (28.0-33.3); Mean Corpuscular Volume 89.3 fL (83.0-100.0); Mean Platelet Volume 9.7 fL (9.4-12.4); Monocytes # 1.1 K/mcL (0.0-1.3); Monocytes % 5.8 %; Neutrophils # 13.4 K/mcL (1.6-8.9); Platelet Count 320 K/mcL (140-400); Red Blood Count 3.75 M/mcL (3.82-4.97); Red Cell Distribution Width 17.1 % (11.5-14.5); Segmented Neutrophils % 73.7 %; White Blood Count 18.1 K/mcL (4.3-11.1)
[2021-02-24 19:57] LABS: BUN/Creatinine Ratio 45 (6-26); Blood Urea Nitrogen 40 mg/dL (8-23); Calcium 8.1 mg/dL (8.6-10.3); Carbon Dioxide 27 mEq/L (23-29); Chloride 104 mEq/L (98-107); Glucose 107 mg/dL (70-105); Osmolality,Calculated 300 (280-300); Potassium 2.6 mEq/L (3.5-5.1); Sodium 140 mEq/L (136-145); eGFR For African Americans > 60 (> 60); eGFR For Non-African Americans > 60 (> 60)
[2021-02-24] MEDS ORDERED: Isovue-370 500 ML BOTTLE IVP ONE (20:54)
[2021-02-24] MEDS ORDERED: POTASSIUM CHLORIDE IN 0.9%NACL 40 MEQ/1,000 ML IV.SOLN IV STA (22:26)
[2021-02-24 22:32] LABS: Bacteria,Urine Few per hpf (None-Few); Bilirubin,Urine Negative (Negative); Blood,Urine Negative (Negative); Clarity,Urine Clear (Clear); Color,Urine Yellow (Yellow); Glucose,Urine (UA) Normal (Normal); Hyaline Casts,Urine Many per lpf (None Seen); Ketones,Urine Negative (Negative); Leukocyte Esterase,Urine Moderate (Negative); Mucus,Urine Few per lpf (None-Few); Nitrite,Urine Positive (Negative); PH,Urine 5.5 pH Units (5.0-8.0); Protein,Urine Negative (Neg-Trace); RBC,Urine 0-3 per hpf (0-3); Specific Gravity,Urine 1.029 (1.010-1.025); Squamous Epithelial Cell,Urine Few per hpf (None-Few); Urobilinogen,Urine Normal (Normal); WBC,Urine 15-30 per hpf (0-3)
[2021-02-24] MEDS ORDERED: MetroNIDAZOLE 500 MG/100 ML 500 MG/100 ML BAG IVPB ONE (23:31)
[2021-02-24] MEDS ORDERED: levoFLOXacin 500 MG/100 ML 500 MG/100 ML BAG IVPB ONE (23:32)
[2021-02-25] MEDS ORDERED: Naloxone 0.4 MG/ML INJ IVP PRN (03:28)
[2021-02-25] MEDS ORDERED: Ondansetron 4 MG/2 ML VIAL IVP PRN (03:28)
[2021-02-25] MEDS ORDERED: QUEtiapine Fumarate 25 MG TABLET PO PRN (03:45)
[2021-02-25] MEDS: 0.9 % Sodium Chloride 1,000 ML IVC SCH (04:24)
[2021-02-25] MEDS: Piperacillin/Tazobactam 3.375 GM in 0.9 % Sodium Chloride Mini Bag 100 ML IVPB SCH ×3 (04:27→23:03)
[2021-02-25] MEDS: Gabapentin 300 MG CAPSULE PO SCH ×3 (09:03→20:28)
[2021-02-25] MEDS: QUEtiapine Fumarate 25 MG TABLET PO SCH ×3 (09:03→20:27)
[2021-02-25] MEDS: *HR* Rivaroxaban 10 MG TABLET PO SCH (09:03)
[2021-02-25 09:30] LABS: Hematocrit 29.7 % (35.3-44.9); Hemoglobin 8.9 g/dL (11.5-15.4); Mean Corpuscular Hemoglobin 26.9 pg (28.0-33.3); Mean Corpuscular Volume 89.7 fL (83.0-100.0); Mean Platelet Volume 9.6 fL (9.4-12.4); Platelet Count 272 K/mcL (140-400); Red Blood Count 3.31 M/mcL (3.82-4.97); White Blood Count 10.8 K/mcL (4.3-11.1)
[2021-02-25 09:49] LABS: BUN/Creatinine Ratio 41 (6-26); Blood Urea Nitrogen 34 mg/dL (8-23); Calcium 7.9 mg/dL (8.6-10.3); Carbon Dioxide 28 mEq/L (23-29); Chloride 104 mEq/L (98-107); Glucose 86 mg/dL (70-105); Osmolality,Calculated 293 (280-300); Potassium 2.8 mEq/L (3.5-5.1); Sodium 138 mEq/L (136-145); eGFR For African Americans > 60 (> 60); eGFR For Non-African Americans > 60 (> 60)
[2021-02-25] MEDS ORDERED: Potassium Chloride 40 MEQ, Lidocaine 1% 2 ML in 0.9 % Sodium Chloride 500 ML IVPB ONE (13:06)
[2021-02-26] MEDS: 0.9 % Sodium Chloride 1,000 ML IVC SCH (04:45)
[2021-02-26] MEDS: Piperacillin/Tazobactam 3.375 GM in 0.9 % Sodium Chloride Mini Bag 100 ML IVPB SCH ×3 (04:47→20:21)
[2021-02-26 06:20] LABS: Basophils # 0.1 K/mcL (0.0-0.2); Basophils % 0.7 %; Eosinophils # 0.5 K/mcL (0.0-0.6); Eosinophils % 5.7 %; Hemoglobin 8.5 g/dL (11.5-15.4); Immature Granulocytes % 0.8 % (0-4); Lymphocytes # 2.1 K/mcL (0.6-4.6); Lymphocytes % 24.5 %; Mean Corpuscular HGB Conc 29.3 g/dL (31.6-35.5); Mean Corpuscular Hemoglobin 26.8 pg (28.0-33.3); Mean Corpuscular Volume 91.5 fL (83.0-100.0); Mean Platelet Volume 9.3 fL (9.4-12.4); Monocytes # 0.6 K/mcL (0.0-1.3); Monocytes % 6.9 %; Neutrophils # 5.2 K/mcL (1.6-8.9); Platelet Count 247 K/mcL (140-400); Red Blood Count 3.17 M/mcL (3.82-4.97); Red Cell Distribution Width 16.8 % (11.5-14.5); Segmented Neutrophils % 61.4 %; White Blood Count 8.4 K/mcL (4.3-11.1)
[2021-02-26 06:36] LABS: BUN/Creatinine Ratio 28 (6-26); Blood Urea Nitrogen 21 mg/dL (8-23); Carbon Dioxide 29 mEq/L (23-29); Chloride 106 mEq/L (98-107); Glucose 88 mg/dL (70-105); Osmolality,Calculated 296 (280-300); Potassium 2.7 mEq/L (3.5-5.1); Sodium 142 mEq/L (136-145); eGFR For African Americans > 60 (> 60); eGFR For Non-African Americans > 60 (> 60)
[2021-02-26] MEDS ORDERED: Potassium Chloride 40 MEQ, Lidocaine 1% 2 ML in 0.9 % Sodium Chloride 500 ML IVPB ONE (07:23)
[2021-02-26] MEDS: QUEtiapine Fumarate 25 MG TABLET PO SCH ×3 (08:34→20:21)
[2021-02-26] MEDS: Gabapentin 300 MG CAPSULE PO SCH ×3 (08:35→20:22)
[2021-02-26] MEDS: *HR* Rivaroxaban 10 MG TABLET PO SCH (08:35)
[2021-02-26 12:03] LABS: Adenovirus F 40/41 PCR Not detected (Not detect); Astrovirus PCR Not detected (Not detect); Campylobacter by PCR Not detected (Not detect); Cryptosporidium by PCR Not detected (Not detect); Cyclospora cayetanensis PCR Not detected (Not detect); E. coli O157 by PCR Not detected (Not detect); Entamoeba histolytica PCR Not detected (Not detect); Enteroaggregative E.coli(EAEC) Not detected (Not detect); Enteropathogenic E.coli(EPEC) Not detected (Not detect); Enterotoxigenic E.coli (ETEC) Not detected (Not detect); Giardia lamblia PCR Not detected (Not detect); Norovirus GI/GII PCR Not detected (Not detect); Plesiomonas shigelloides PCR Not detected (Not detect); Rotavirus A PCR Not detected (Not detect); Salmonella PCR Not detected (Not detect); Sapovirus PCR Not detected (Not detect); Shig/EnteroinvasiveE coli EIEC Not detected (Not detect); Shigalike tox-prod E coli STEC Not detected (Not detect); Vibrio PCR Not detected (Not detect); Vibrio cholerae PCR Not detected (Not detect); Yersinia enterocolitica PCR Not detected (Not detect)
[2021-02-26 12:04] LABS: C.difficile Toxin A/B Gene PCR DETECTED (Not detect)
[2021-02-26] MEDS: Vancomycin Oral Soln 125 MG/2.5 ML UDC PO SCH ×3 (14:35→20:20)
[2021-02-27] MEDS: Piperacillin/Tazobactam 3.375 GM in 0.9 % Sodium Chloride Mini Bag 100 ML IVPB SCH ×3 (02:53→21:32)
[2021-02-27 08:56] LABS: Basophils # 0.1 K/mcL (0.0-0.2); Basophils % 0.5 %; Eosinophils # 0.4 K/mcL (0.0-0.6); Eosinophils % 4.4 %; Hematocrit 29.9 % (35.3-44.9); Hemoglobin 8.8 g/dL (11.5-15.4); Immature Granulocytes % 1.1 % (0-4); Lymphocytes % 21.5 %; Mean Corpuscular HGB Conc 29.4 g/dL (31.6-35.5); Mean Corpuscular Hemoglobin 26.7 pg (28.0-33.3); Mean Corpuscular Volume 90.6 fL (83.0-100.0); Mean Platelet Volume 9.7 fL (9.4-12.4); Monocytes # 0.5 K/mcL (0.0-1.3); Monocytes % 5.3 %; Neutrophils # 6.2 K/mcL (1.6-8.9); Platelet Count 240 K/mcL (140-400); Red Cell Distribution Width 16.7 % (11.5-14.5); Segmented Neutrophils % 67.2 %; White Blood Count 9.3 K/mcL (4.3-11.1)
[2021-02-27] MEDS: *HR* Rivaroxaban 10 MG TABLET PO SCH (08:57)
[2021-02-27] MEDS: QUEtiapine Fumarate 25 MG TABLET PO SCH ×3 (08:57→21:31)
[2021-02-27] MEDS: Vancomycin Oral Soln 125 MG/2.5 ML UDC PO SCH ×4 (08:57→21:32)
[2021-02-27] MEDS: Gabapentin 300 MG CAPSULE PO SCH ×3 (08:57→21:32)
[2021-02-27 11:34] LABS: BUN/Creatinine Ratio 20 (6-26); Blood Urea Nitrogen 13 mg/dL (8-23); Calcium 8.2 mg/dL (8.6-10.3); Carbon Dioxide 24 mEq/L (23-29); Chloride 109 mEq/L (98-107); Glucose 81 mg/dL (70-105); Osmolality,Calculated 289 (280-300); Potassium 3.7 mEq/L (3.5-5.1); Sodium 140 mEq/L (136-145); eGFR For African Americans > 60 (> 60); eGFR For Non-African Americans > 60 (> 60)
[2021-02-28] MEDS: Piperacillin/Tazobactam 3.375 GM in 0.9 % Sodium Chloride Mini Bag 100 ML IVPB SCH ×2 (03:24→11:31)
[2021-02-28] MEDS ORDERED: *HR* Heparin 5,000 UNIT/ML VIAL SQ SCH (06:00)
[2021-02-28 06:43] LABS: Basophils # 0.1 K/mcL (0.0-0.2); Basophils % 0.5 %; Eosinophils # 0.4 K/mcL (0.0-0.6); Eosinophils % 4.5 %; Hematocrit 29.9 % (35.3-44.9); Hemoglobin 9.1 g/dL (11.5-15.4); Immature Granulocytes % 1.2 % (0-4); Lymphocytes # 1.6 K/mcL (0.6-4.6); Lymphocytes % 16.7 %; Mean Corpuscular HGB Conc 30.4 g/dL (31.6-35.5); Mean Corpuscular Hemoglobin 27.5 pg (28.0-33.3); Mean Corpuscular Volume 90.3 fL (83.0-100.0); Mean Platelet Volume 10.2 fL (9.4-12.4); Monocytes # 0.5 K/mcL (0.0-1.3); Monocytes % 5.5 %; Platelet Count 248 K/mcL (140-400); Red Blood Count 3.31 M/mcL (3.82-4.97); Red Cell Distribution Width 16.3 % (11.5-14.5); Segmented Neutrophils % 71.6 %; White Blood Count 9.8 K/mcL (4.3-11.1)
[2021-02-28 06:59] LABS: BUN/Creatinine Ratio 18 (6-26); Blood Urea Nitrogen 11 mg/dL (8-23); Calcium 8.2 mg/dL (8.6-10.3); Carbon Dioxide 18 mEq/L (23-29); Chloride 111 mEq/L (98-107); Glucose 68 mg/dL (70-105); Osmolality,Calculated 288 (280-300); Potassium 4.2 mEq/L (3.5-5.1); Sodium 140 mEq/L (136-145); eGFR For African Americans > 60 (> 60); eGFR For Non-African Americans > 60 (> 60)
[2021-02-28 08:58] VITALS: BP 138/89
[2021-02-28] MEDS: Gabapentin 300 MG CAPSULE PO SCH ×2 (09:08→13:39)
[2021-02-28] MEDS: Vancomycin Oral Soln 125 MG/2.5 ML UDC PO SCH ×2 (09:08→13:39)
[2021-02-28] MEDS: QUEtiapine Fumarate 25 MG TABLET PO SCH ×2 (09:08→13:39)
[2021-02-28] MEDS ORDERED: Fosfomycin Tromethamine 3 GM Packet PO ONE (14:45)
== END 2021-02-28 17:07 ==
LOC: 3ANU 19:04 → EMEROOARM 19:04 → SUATTDRO 02-25 02:07 → 3ANU 02-25 03:30
PROVIDERS: ADMIT Internal Medicine; ATTEND Family Medicine

== ENCOUNTER 2021-03-04 17:58 | Inpatient (IN) ==
[2021-03-04] MEDS ORDERED: Ipratropium/Albuterol Neb 3 ML IH ONE ×2 (18:00→23:58)
[2021-03-04] MEDS ORDERED: methylPREDNISolone 125 MG/2 ML VIAL IVP ONE (18:00)
[2021-03-04 18:11] LABS: Eosinophils % 1.8 %; Mean Corpuscular Volume 87.6 fL (83.0-100.0); Mean Platelet Volume 10.8 fL (9.4-12.4); Red Cell Distribution Width 16.6 % (11.5-14.5)
[2021-03-04 18:13] LABS: Basophils # 0.1 K/mcL (0.0-0.2); Basophils % 0.4 %; Eosinophils # 0.3 K/mcL (0.0-0.6); Hematocrit 30.4 % (35.3-44.9); Hemoglobin 9.2 g/dL (11.5-15.4); Immature Platelets 3.1 % (1.1-6.1); Lymphocytes # 1.3 K/mcL (0.6-4.6); Lymphocytes % 7.9 %; Mean Corpuscular HGB Conc 30.3 g/dL (31.6-35.5); Mean Corpuscular Hemoglobin 26.5 pg (28.0-33.3); Monocytes # 0.7 K/mcL (0.0-1.3); Monocytes % 4.5 %; Neutrophils # 13.2 K/mcL (1.6-8.9); Platelet Count 287 K/mcL (140-400); Red Blood Count 3.47 M/mcL (3.82-4.97); Segmented Neutrophils % 83.4 %; White Blood Count 15.8 K/mcL (4.3-11.1)
[2021-03-04 18:55] LABS: BUN/Creatinine Ratio 32 (6-26); Blood Urea Nitrogen 21 mg/dL (8-23); Calcium 8.6 mg/dL (8.6-10.3); Carbon Dioxide 21 mEq/L (23-29); Chloride 110 mEq/L (98-107); Glucose 159 mg/dL (70-105); Osmolality,Calculated 294 (280-300); Sodium 139 mEq/L (136-145); Troponin I < 0.03 ng/mL (< 0.04); eGFR For African Americans > 60 (> 60); eGFR For Non-African Americans > 60 (> 60)
[2021-03-04] MEDS ORDERED: Isovue-370 500 ML BOTTLE IVP ONE (19:22)
[2021-03-04] MEDS ORDERED: Vancomycin 1,500 MG/265 ML IV.SOLN IVPB ONE (23:00)
[2021-03-04] MEDS ORDERED: Azithromycin 500 MG in 0.9 % Sodium Chloride 250 ML IVPB ONE (23:18)
[2021-03-04] MEDS ORDERED: Piperacillin/Tazobactam 3.375 GM in 0.9 % Sodium Chloride Mini Bag 100 ML IVPB ONE (23:19)
[2021-03-04] MEDS ORDERED: Furosemide 40 MG/4 ML VIAL IVP ONE (23:30)
[2021-03-04] MEDS ORDERED: Ipratropium/Albuterol Neb 3 ML ONE (23:59)
[2021-03-05 01:24] LABS: Adenovirus Not Detected (Not Detect); Bordetella Pertussis Not Detected (Not Detect); Chlamydophila pneumoniae Not Detected (Not Detect); Coronavirus 229E Not Detected (Not Detect); Coronavirus HKU1 Not Detected (Not Detect); Coronavirus NL63 Not Detected (Not Detect); Coronavirus OC43 Not Detected (Not Detect); Human Metapneumovirus Not Detected (Not Detect); Human Rhinovirus/Enterovirus Not Detected (Not Detect); Influenza A Subtype 2009 H1 Not Detected (Not Detect); Influenza B Not Detected (Not Detect); Mycoplasma pneumoniae Not Detected (Not Detect); Parainfluenza Virus 1 Not Detected (Not Detect); Parainfluenza Virus 2 Not Detected (Not Detect); Parainfluenza Virus 3 Not Detected (Not Detect); Parainfluenza Virus 4 Not Detected (Not Detect); Respiratory Syncytial Virus Not Detected (Not Detect); SARS-CoV-2 Not Detected (Not Detect)
[2021-03-05] MEDS ORDERED: Naloxone 0.4 MG/ML INJ IVP PRN (02:50)
[2021-03-05 06:03] LABS: Basophils % 0.3 %; Hemoglobin 8.8 g/dL (11.5-15.4); Immature Granulocytes % 2.8 % (0-4); Lymphocytes # 1.4 K/mcL (0.6-4.6); Lymphocytes % 9.2 %; Mean Corpuscular HGB Conc 30.3 g/dL (31.6-35.5); Mean Corpuscular Hemoglobin 26.2 pg (28.0-33.3); Mean Corpuscular Volume 86.3 fL (83.0-100.0); Mean Platelet Volume 9.5 fL (9.4-12.4); Monocytes # 0.6 K/mcL (0.0-1.3); Monocytes % 4.1 %; Neutrophils # 12.4 K/mcL (1.6-8.9); Platelet Count 303 K/mcL (140-400); Red Blood Count 3.36 M/mcL (3.82-4.97); Red Cell Distribution Width 16.7 % (11.5-14.5); Segmented Neutrophils % 83.6 %; White Blood Count 14.9 K/mcL (4.3-11.1)
[2021-03-05 06:26] LABS: Alanine Aminotransferase 9 Units/L (7-52); Albumin 2.7 g/dL (3.5-5.7); Alkaline Phosphatase 109 Units/L (34-104); Aspartate Amino Transferase 18 Units/L (13-39); BUN/Creatinine Ratio 31 (6-26); Bilirubin,Total 0.3 mg/dL (0.3-1.0); Blood Urea Nitrogen 19 mg/dL (8-23); Calcium 8.4 mg/dL (8.6-10.3); Carbon Dioxide 25 mEq/L (23-29); Chloride 111 mEq/L (98-107); Globulin 2.8 g/dL (2.4-3.5); Glucose 122 mg/dL (70-105); Magnesium 1.8 mg/dL (1.6-2.6); Osmolality,Calculated 300 (280-300); Phosphorous 3.2 mg/dL (2.7-4.5); Potassium 3.7 mEq/L (3.5-5.1); Sodium 143 mEq/L (136-145); Total Protein 5.5 g/dL (6.4-8.9); Troponin I < 0.03 ng/mL (< 0.04); eGFR For African Americans > 60 (> 60); eGFR For Non-African Americans > 60 (> 60)
[2021-03-05 08:04] LABS: ABG Base Excess 1 mEq/L (-2 to 3); ABG HCO3 25 mEq/L (21-27); ABG Oxygen Saturation 95 % (95-98); ABG PCO2 36 mmHg (35-45); ABG PH 7.45 pH Units (7.32-7.45); ABG PO2 71 mmHg (85-104); ABG TCO2 26 mEq/L (20-26)
[2021-03-05] MEDS: Piperacillin/Tazobactam 3.375 GM in 0.9 % Sodium Chloride Mini Bag 100 ML IVPB SCH ×3 (09:29→23:31)
[2021-03-05] MEDS: Vancomycin Oral Soln 125 MG/2.5 ML UDC PO SCH ×2 (10:02→13:16)
[2021-03-05] MEDS: predniSONE 20 MG TABLET PO SCH (13:16)
[2021-03-05] MEDS ORDERED: Bisacodyl 10 MG RECTAL SUPPOSITORY RC PRN (15:22)
[2021-03-05] MEDS: QUEtiapine Fumarate 25 MG TABLET PO SCH (19:29)
[2021-03-05] MEDS ORDERED: Vancomycin 1,250 MG/262.5 ML IV.SOLN IVPB SCH (23:00)
[2021-03-06 02:13] LABS: Hematocrit 29.3 % (35.3-44.9); Hemoglobin 8.9 g/dL (11.5-15.4); Mean Corpuscular HGB Conc 30.4 g/dL (31.6-35.5); Mean Corpuscular Hemoglobin 26.5 pg (28.0-33.3); Mean Corpuscular Volume 87.2 fL (83.0-100.0); Mean Platelet Volume 9.8 fL (9.4-12.4); Platelet Count 299 K/mcL (140-400); Red Blood Count 3.36 M/mcL (3.82-4.97); Red Cell Distribution Width 16.6 % (11.5-14.5)
[2021-03-06 02:33] LABS: BUN/Creatinine Ratio 36 (6-26); Blood Urea Nitrogen 20 mg/dL (8-23); Calcium 8.3 mg/dL (8.6-10.3); Carbon Dioxide 23 mEq/L (23-29); Chloride 111 mEq/L (98-107); Glucose 106 mg/dL (70-105); Osmolality,Calculated 299 (280-300); Potassium 3.2 mEq/L (3.5-5.1); Sodium 143 mEq/L (136-145); eGFR For African Americans > 60 (> 60); eGFR For Non-African Americans > 60 (> 60)
[2021-03-06] MEDS: *HR* Enoxaparin 40 MG/0.4 ML SYRINGE SQ SCH (05:30)
[2021-03-06] MEDS: Ipratropium/Albuterol Neb 3 ML IH PRN (05:34)
[2021-03-06] MEDS: QUEtiapine Fumarate 25 MG TABLET PO SCH ×3 (07:54→19:48)
[2021-03-06] MEDS: Acetaminophen 325 MG TABLET PO PRN (07:54)
[2021-03-06] MEDS: predniSONE 20 MG TABLET PO SCH (07:55)
[2021-03-06] MEDS: Piperacillin/Tazobactam 3.375 GM in 0.9 % Sodium Chloride Mini Bag 100 ML IVPB SCH ×3 (07:55→23:58)
[2021-03-06] MEDS: Vancomycin Oral Soln 125 MG/2.5 ML UDC PO SCH ×3 (11:45→19:48)
[2021-03-06] MEDS: Ondansetron 4 MG/2 ML VIAL IVP PRN (11:45)
[2021-03-06] MEDS: MethylPREDNISolone 40 MG/ML VIAL IVP SCH (18:03)
[2021-03-06 22:49] LABS: BUN/Creatinine Ratio 38 (6-26); Blood Urea Nitrogen 23 mg/dL (8-23); Calcium 8.4 mg/dL (8.6-10.3); Carbon Dioxide 24 mEq/L (23-29); Chloride 111 mEq/L (98-107); Glucose 131 mg/dL (70-105); Osmolality,Calculated 299 (280-300); Potassium 3.5 mEq/L (3.5-5.1); Sodium 142 mEq/L (136-145); eGFR For African Americans > 60 (> 60); eGFR For Non-African Americans > 60 (> 60)
[2021-03-07] MEDS: *HR* Enoxaparin 40 MG/0.4 ML SYRINGE SQ SCH (05:15)
[2021-03-07] MEDS: MethylPREDNISolone 40 MG/ML VIAL IVP SCH ×2 (05:49→17:52)
[2021-03-07] MEDS: Vancomycin Oral Soln 125 MG/2.5 ML UDC PO SCH ×4 (08:28→20:30)
[2021-03-07] MEDS: QUEtiapine Fumarate 25 MG TABLET PO SCH ×3 (08:28→20:30)
[2021-03-07] MEDS: Lactobacillus 1 EACH CAP.SPRINK PO SCH (08:28)
[2021-03-07] MEDS: Piperacillin/Tazobactam 3.375 GM in 0.9 % Sodium Chloride Mini Bag 100 ML IVPB SCH ×2 (08:29→15:38)
[2021-03-07 10:29] LABS: Basophils % 0.2 %; Eosinophils % 0.1 %; Hematocrit 31.2 % (35.3-44.9); Hemoglobin 9.1 g/dL (11.5-15.4); Immature Granulocytes % 1.3 % (0-4); Lymphocytes % 5.9 %; Mean Corpuscular HGB Conc 29.2 g/dL (31.6-35.5); Mean Corpuscular Hemoglobin 25.9 pg (28.0-33.3); Mean Corpuscular Volume 88.9 fL (83.0-100.0); Mean Platelet Volume 10.1 fL (9.4-12.4); Monocytes # 0.8 K/mcL (0.0-1.3); Monocytes % 4.3 %; Neutrophils # 15.5 K/mcL (1.6-8.9); Platelet Count 305 K/mcL (140-400); Red Blood Count 3.51 M/mcL (3.82-4.97); Red Cell Distribution Width 16.8 % (11.5-14.5); Segmented Neutrophils % 88.2 %; White Blood Count 17.5 K/mcL (4.3-11.1)
[2021-03-07 10:54] LABS: BUN/Creatinine Ratio 39 (6-26); Blood Urea Nitrogen 23 mg/dL (8-23); Calcium 8.7 mg/dL (8.6-10.3); Carbon Dioxide 25 mEq/L (23-29); Chloride 109 mEq/L (98-107); Glucose 135 mg/dL (70-105); Osmolality,Calculated 300 (280-300); Potassium 3.4 mEq/L (3.5-5.1); Sodium 142 mEq/L (136-145); eGFR For African Americans > 60 (> 60); eGFR For Non-African Americans > 60 (> 60)
[2021-03-07] MEDS ORDERED: Furosemide 40 MG/4 ML VIAL IVP ONE (11:25)
[2021-03-07] MEDS ORDERED: Potassium Chloride Elixir 20 MEQ/15 ML UDC PO ONE (14:58)
[2021-03-08] MEDS: Piperacillin/Tazobactam 3.375 GM in 0.9 % Sodium Chloride Mini Bag 100 ML IVPB SCH ×3 (00:32→16:30)
[2021-03-08] MEDS: MethylPREDNISolone 40 MG/ML VIAL IVP SCH ×2 (04:32→16:31)
[2021-03-08] MEDS: *HR* Enoxaparin 40 MG/0.4 ML SYRINGE SQ SCH (04:32)
[2021-03-08] MEDS: Lactobacillus 1 EACH CAP.SPRINK PO SCH (08:35)
[2021-03-08] MEDS: Vancomycin Oral Soln 125 MG/2.5 ML UDC PO SCH ×4 (08:35→21:01)
[2021-03-08] MEDS: QUEtiapine Fumarate 25 MG TABLET PO SCH ×3 (08:35→21:01)
[2021-03-08 09:39] LABS: Basophils % 0.2 %; Eosinophils % 0.1 %; Hematocrit 31.5 % (35.3-44.9); Hemoglobin 9.4 g/dL (11.5-15.4); Immature Granulocytes % 2.4 % (0-4); Lymphocytes # 1.3 K/mcL (0.6-4.6); Mean Corpuscular HGB Conc 29.8 g/dL (31.6-35.5); Mean Corpuscular Hemoglobin 25.8 pg (28.0-33.3); Mean Corpuscular Volume 86.5 fL (83.0-100.0); Mean Platelet Volume 9.5 fL (9.4-12.4); Monocytes # 0.6 K/mcL (0.0-1.3); Monocytes % 3.5 %; Platelet Count 286 K/mcL (140-400); Red Blood Count 3.64 M/mcL (3.82-4.97); Red Cell Distribution Width 16.4 % (11.5-14.5); Segmented Neutrophils % 85.8 %; White Blood Count 16.4 K/mcL (4.3-11.1)
[2021-03-08 09:59] LABS: BUN/Creatinine Ratio 33 (6-26); Blood Urea Nitrogen 21 mg/dL (8-23); Calcium 8.9 mg/dL (8.6-10.3); Carbon Dioxide 27 mEq/L (23-29); Chloride 105 mEq/L (98-107); Glucose 147 mg/dL (70-105); Osmolality,Calculated 296 (280-300); Potassium 3.3 mEq/L (3.5-5.1); Sodium 140 mEq/L (136-145); eGFR For African Americans > 60 (> 60); eGFR For Non-African Americans > 60 (> 60)
[2021-03-08] MEDS ORDERED: Furosemide 40 MG/4 ML VIAL IVP ONE (10:22)
[2021-03-08] MEDS ORDERED: Potassium Chloride Elixir 20 MEQ/15 ML UDC PO ONE (10:22)
[2021-03-08] MEDS: Acetaminophen 325 MG TABLET PO PRN (16:29)
[2021-03-08] MEDS: Melatonin 3 MG TABLET PO PRN (21:01)
[2021-03-09] MEDS: Piperacillin/Tazobactam 3.375 GM in 0.9 % Sodium Chloride Mini Bag 100 ML IVPB SCH ×3 (00:07→16:32)
[2021-03-09] MEDS: MethylPREDNISolone 40 MG/ML VIAL IVP SCH ×3 (04:49→21:09)
[2021-03-09] MEDS: *HR* Enoxaparin 40 MG/0.4 ML SYRINGE SQ SCH (04:49)
[2021-03-09] MEDS: Ondansetron 4 MG/2 ML VIAL IVP PRN (05:02)
[2021-03-09 05:55] LABS: Basophils # 0.1 K/mcL (0.0-0.2); Basophils % 0.5 %; Eosinophils # 0.9 K/mcL (0.0-0.6); Eosinophils % 5.6 %; Hematocrit 30.9 % (35.3-44.9); Hemoglobin 9.3 g/dL (11.5-15.4); Immature Granulocytes % 3.4 % (0-4); Lymphocytes # 2.3 K/mcL (0.6-4.6); Lymphocytes % 13.9 %; Mean Corpuscular HGB Conc 30.1 g/dL (31.6-35.5); Mean Corpuscular Hemoglobin 25.9 pg (28.0-33.3); Mean Corpuscular Volume 86.1 fL (83.0-100.0); Mean Platelet Volume 9.9 fL (9.4-12.4); Monocytes # 0.7 K/mcL (0.0-1.3); Neutrophils # 11.9 K/mcL (1.6-8.9); Platelet Count 274 K/mcL (140-400); Red Blood Count 3.59 M/mcL (3.82-4.97); Red Cell Distribution Width 16.6 % (11.5-14.5); Segmented Neutrophils % 72.6 %; White Blood Count 16.4 K/mcL (4.3-11.1)
[2021-03-09 06:13] LABS: BUN/Creatinine Ratio 35 (6-26); Blood Urea Nitrogen 22 mg/dL (8-23); Calcium 8.5 mg/dL (8.6-10.3); Carbon Dioxide 28 mEq/L (23-29); Chloride 106 mEq/L (98-107); Glucose 95 mg/dL (70-105); Osmolality,Calculated 295 (280-300); Potassium 3.4 mEq/L (3.5-5.1); Sodium 141 mEq/L (136-145); eGFR For African Americans > 60 (> 60); eGFR For Non-African Americans > 60 (> 60)
[2021-03-09] MEDS ORDERED: Potassium Chloride Elixir 20 MEQ/15 ML UDC PO ONE (07:14)
[2021-03-09] MEDS: QUEtiapine Fumarate 25 MG TABLET PO SCH ×3 (09:01→21:10)
[2021-03-09] MEDS: Lactobacillus 1 EACH CAP.SPRINK PO SCH (09:01)
[2021-03-09] MEDS: Vancomycin Oral Soln 125 MG/2.5 ML UDC PO SCH ×4 (09:01→21:09)
[2021-03-09] MEDS: Furosemide 40 MG/4 ML VIAL IVP SCH (09:02)
[2021-03-09] MEDS: Melatonin 3 MG TABLET PO PRN (21:10)
[2021-03-10] MEDS: Piperacillin/Tazobactam 3.375 GM in 0.9 % Sodium Chloride Mini Bag 100 ML IVPB SCH ×3 (01:29→16:44)
[2021-03-10 06:36] LABS: Basophils # 0.1 K/mcL (0.0-0.2); Basophils % 0.4 %; Eosinophils % 0.2 %; Hematocrit 30.2 % (35.3-44.9); Hemoglobin 9.2 g/dL (11.5-15.4); Lymphocytes # 1.9 K/mcL (0.6-4.6); Lymphocytes % 11.8 %; Mean Corpuscular HGB Conc 30.5 g/dL (31.6-35.5); Mean Corpuscular Hemoglobin 26.3 pg (28.0-33.3); Mean Corpuscular Volume 86.3 fL (83.0-100.0); Mean Platelet Volume 10.3 fL (9.4-12.4); Monocytes # 0.7 K/mcL (0.0-1.3); Monocytes % 4.2 %; Neutrophils # 12.6 K/mcL (1.6-8.9); Platelet Count 294 K/mcL (140-400); Red Cell Distribution Width 16.3 % (11.5-14.5); Segmented Neutrophils % 78.4 %
[2021-03-10] MEDS: *HR* Enoxaparin 40 MG/0.4 ML SYRINGE SQ SCH (06:55)
[2021-03-10] MEDS: MethylPREDNISolone 40 MG/ML VIAL IVP SCH ×3 (06:56→21:33)
[2021-03-10 07:01] LABS: BUN/Creatinine Ratio 33 (6-26); Blood Urea Nitrogen 21 mg/dL (8-23); Calcium 8.7 mg/dL (8.6-10.3); Carbon Dioxide 30 mEq/L (23-29); Chloride 104 mEq/L (98-107); Glucose 96 mg/dL (70-105); Osmolality,Calculated 293 (280-300); Potassium 3.9 mEq/L (3.5-5.1); Sodium 140 mEq/L (136-145); eGFR For African Americans > 60 (> 60); eGFR For Non-African Americans > 60 (> 60)
[2021-03-10] MEDS: Furosemide 40 MG/4 ML VIAL IVP SCH (08:22)
[2021-03-10] MEDS: Lactobacillus 1 EACH CAP.SPRINK PO SCH (08:22)
[2021-03-10] MEDS: QUEtiapine Fumarate 25 MG TABLET PO SCH ×3 (08:22→21:33)
[2021-03-11] MEDS: Melatonin 3 MG TABLET PO PRN ×2 (00:13→21:12)
[2021-03-11] MEDS: Piperacillin/Tazobactam 3.375 GM in 0.9 % Sodium Chloride Mini Bag 100 ML IVPB SCH ×3 (00:13→16:03)
[2021-03-11] MEDS: MethylPREDNISolone 40 MG/ML VIAL IVP SCH ×3 (06:11→21:11)
[2021-03-11] MEDS: *HR* Enoxaparin 40 MG/0.4 ML SYRINGE SQ SCH (06:11)
[2021-03-11] MEDS: Furosemide 40 MG/4 ML VIAL IVP SCH (09:07)
[2021-03-11] MEDS: Lactobacillus 1 EACH CAP.SPRINK PO SCH (09:07)
[2021-03-11] MEDS: QUEtiapine Fumarate 25 MG TABLET PO SCH ×3 (09:07→21:11)
[2021-03-11] MEDS ORDERED: Haloperidol Lactate 5 MG/ML VIAL IVP ONE (13:43)
[2021-03-11] MEDS: Ondansetron 4 MG/2 ML VIAL IVP PRN (14:01)
[2021-03-11 14:35] LABS: Basophils # 0.1 K/mcL (0.0-0.2); Basophils % 0.3 %; Eosinophils # 0.2 K/mcL (0.0-0.6); Eosinophils % 0.7 %; Hematocrit 31.6 % (35.3-44.9); Hemoglobin 9.7 g/dL (11.5-15.4); Immature Granulocytes % 3.3 % (0-4); Lymphocytes # 2.3 K/mcL (0.6-4.6); Mean Corpuscular HGB Conc 30.7 g/dL (31.6-35.5); Mean Corpuscular Hemoglobin 25.8 pg (28.0-33.3); Monocytes % 4.8 %; Neutrophils # 16.9 K/mcL (1.6-8.9); Platelet Count 345 K/mcL (140-400); Red Blood Count 3.76 M/mcL (3.82-4.97); Red Cell Distribution Width 16.3 % (11.5-14.5); Segmented Neutrophils % 79.9 %; White Blood Count 21.2 K/mcL (4.3-11.1)
[2021-03-11 14:55] LABS: BUN/Creatinine Ratio 36 (6-26); Blood Urea Nitrogen 25 mg/dL (8-23); Calcium 8.6 mg/dL (8.6-10.3); Carbon Dioxide 26 mEq/L (23-29); Chloride 101 mEq/L (98-107); Glucose 134 mg/dL (70-105); Osmolality,Calculated 292 (280-300); Sodium 138 mEq/L (136-145); eGFR For African Americans > 60 (> 60); eGFR For Non-African Americans > 60 (> 60)
[2021-03-11] MEDS ORDERED: Potassium Chloride 40 MEQ, Lidocaine 1% 2 ML in 0.9 % Sodium Chloride 500 ML IVPB ONE (15:10)
[2021-03-11] MEDS ORDERED: Potassium Chloride Elixir 20 MEQ/15 ML UDC PO ONE (15:36)
[2021-03-11] MEDS ORDERED: Isovue-370 500 ML BOTTLE IVP ONE (16:07)
[2021-03-12] MEDS: Piperacillin/Tazobactam 3.375 GM in 0.9 % Sodium Chloride Mini Bag 100 ML IVPB SCH ×4 (00:14→23:56)
[2021-03-12 05:16] LABS: Basophils # 0.1 K/mcL (0.0-0.2); Basophils % 0.4 %; Eosinophils % 0.2 %; Hematocrit 29.7 % (35.3-44.9); Hemoglobin 8.6 g/dL (11.5-15.4); Immature Granulocytes % 4.3 % (0-4); Lymphocytes # 1.9 K/mcL (0.6-4.6); Mean Corpuscular Volume 86.3 fL (83.0-100.0); Mean Platelet Volume 10.4 fL (9.4-12.4); Monocytes # 0.8 K/mcL (0.0-1.3); Monocytes % 4.4 %; Neutrophils # 15.4 K/mcL (1.6-8.9); Platelet Count 313 K/mcL (140-400); Red Blood Count 3.44 M/mcL (3.82-4.97); Red Cell Distribution Width 16.3 % (11.5-14.5); Segmented Neutrophils % 80.7 %
[2021-03-12 05:34] LABS: BUN/Creatinine Ratio 43 (6-26); Blood Urea Nitrogen 26 mg/dL (8-23); Calcium 8.3 mg/dL (8.6-10.3); Carbon Dioxide 28 mEq/L (23-29); Chloride 106 mEq/L (98-107); Glucose 108 mg/dL (70-105); Osmolality,Calculated 295 (280-300); Potassium 3.9 mEq/L (3.5-5.1); Sodium 140 mEq/L (136-145); eGFR For African Americans > 60 (> 60); eGFR For Non-African Americans > 60 (> 60)
[2021-03-12] MEDS: MethylPREDNISolone 40 MG/ML VIAL IVP SCH ×3 (06:33→23:56)
[2021-03-12] MEDS: *HR* Enoxaparin 40 MG/0.4 ML SYRINGE SQ SCH (06:33)
[2021-03-12] MEDS ORDERED: Piperacillin/Tazobactam 3.375 GM VIAL ONE (07:55)
[2021-03-12] MEDS: QUEtiapine Fumarate 25 MG TABLET PO SCH ×3 (08:04→20:31)
[2021-03-12] MEDS: Lactobacillus 1 EACH CAP.SPRINK PO SCH (08:04)
[2021-03-12 14:46] LABS: Adenovirus F 40/41 PCR Not detected (Not detect); Astrovirus PCR Not detected (Not detect); C.difficile Toxin A/B Gene PCR Not detected (Not detect); Campylobacter by PCR Not detected (Not detect); Cryptosporidium by PCR Not detected (Not detect); Cyclospora cayetanensis PCR Not detected (Not detect); E. coli O157 by PCR Not detected (Not detect); Entamoeba histolytica PCR Not detected (Not detect); Enteroaggregative E.coli(EAEC) Not detected (Not detect); Enteropathogenic E.coli(EPEC) Not detected (Not detect); Enterotoxigenic E.coli (ETEC) Not detected (Not detect); Giardia lamblia PCR Not detected (Not detect); Norovirus GI/GII PCR Not detected (Not detect); Plesiomonas shigelloides PCR Not detected (Not detect); Rotavirus A PCR Not detected (Not detect); Salmonella PCR Not detected (Not detect); Sapovirus PCR Not detected (Not detect); Shig/EnteroinvasiveE coli EIEC Not detected (Not detect); Shigalike tox-prod E coli STEC Not detected (Not detect); Vibrio PCR Not detected (Not detect); Vibrio cholerae PCR Not detected (Not detect); Yersinia enterocolitica PCR Not detected (Not detect)
[2021-03-12] MEDS: Acetaminophen 325 MG TABLET PO PRN (15:03)
[2021-03-12] MEDS: Melatonin 3 MG TABLET PO PRN (20:31)
[2021-03-12] MEDS: *HR* OxyCODONE/APAP 5/325 TABLET PO PRN (23:55)
[2021-03-13] MEDS: MethylPREDNISolone 40 MG/ML VIAL IVP SCH ×3 (05:36→20:05)
[2021-03-13] MEDS: *HR* Enoxaparin 40 MG/0.4 ML SYRINGE SQ SCH (05:36)
[2021-03-13 06:37] LABS: Basophils # 0.1 K/mcL (0.0-0.2); Basophils % 0.4 %; Eosinophils # 0.1 K/mcL (0.0-0.6); Eosinophils % 0.6 %; Hematocrit 31.2 % (35.3-44.9); Hemoglobin 9.2 g/dL (11.5-15.4); Immature Granulocytes % 4.3 % (0-4); Lymphocytes % 10.4 %; Mean Corpuscular HGB Conc 29.5 g/dL (31.6-35.5); Mean Corpuscular Hemoglobin 25.5 pg (28.0-33.3); Mean Corpuscular Volume 86.4 fL (83.0-100.0); Mean Platelet Volume 10.2 fL (9.4-12.4); Monocytes # 0.7 K/mcL (0.0-1.3); Monocytes % 3.6 %; Neutrophils # 15.2 K/mcL (1.6-8.9); Platelet Count 329 K/mcL (140-400); Red Blood Count 3.61 M/mcL (3.82-4.97); Red Cell Distribution Width 16.1 % (11.5-14.5); Segmented Neutrophils % 80.7 %; White Blood Count 18.8 K/mcL (4.3-11.1)
[2021-03-13 07:11] LABS: BUN/Creatinine Ratio 39 (6-26); Blood Urea Nitrogen 23 mg/dL (8-23); Calcium 8.5 mg/dL (8.6-10.3); Carbon Dioxide 28 mEq/L (23-29); Chloride 104 mEq/L (98-107); Glucose 103 mg/dL (70-105); Osmolality,Calculated 292 (280-300); Sodium 139 mEq/L (136-145); eGFR For African Americans > 60 (> 60); eGFR For Non-African Americans > 60 (> 60)
[2021-03-13] MEDS: QUEtiapine Fumarate 25 MG TABLET PO SCH ×3 (08:38→20:05)
[2021-03-13] MEDS: *HR* OxyCODONE/APAP 5/325 TABLET PO PRN ×2 (08:39→15:41)
[2021-03-13] MEDS: Lactobacillus 1 EACH CAP.SPRINK PO SCH (08:39)
[2021-03-13] MEDS: Piperacillin/Tazobactam 3.375 GM in 0.9 % Sodium Chloride Mini Bag 100 ML IVPB SCH (08:39)
[2021-03-13] MEDS: Cholestyramine 4 GM POWD.PACK PO SCH ×2 (15:41→20:05)
[2021-03-13] MEDS: Ondansetron 4 MG/2 ML VIAL IVP PRN (20:05)
[2021-03-13] MEDS: Melatonin 3 MG TABLET PO PRN (21:25)
[2021-03-14 02:29] LABS: Basophils # 0.1 K/mcL (0.0-0.2); Basophils % 0.3 %; Eosinophils # 0.1 K/mcL (0.0-0.6); Eosinophils % 0.5 %; Hematocrit 27.6 % (35.3-44.9); Hemoglobin 8.3 g/dL (11.5-15.4); Immature Granulocytes % 3.8 % (0-4); Lymphocytes # 1.5 K/mcL (0.6-4.6); Lymphocytes % 8.1 %; Mean Corpuscular HGB Conc 30.1 g/dL (31.6-35.5); Mean Corpuscular Hemoglobin 25.8 pg (28.0-33.3); Mean Corpuscular Volume 85.7 fL (83.0-100.0); Mean Platelet Volume 10.5 fL (9.4-12.4); Monocytes # 0.7 K/mcL (0.0-1.3); Monocytes % 3.8 %; Neutrophils # 15.8 K/mcL (1.6-8.9); Platelet Count 320 K/mcL (140-400); Red Blood Count 3.22 M/mcL (3.82-4.97); Red Cell Distribution Width 16.2 % (11.5-14.5); Segmented Neutrophils % 83.5 %; White Blood Count 18.9 K/mcL (4.3-11.1)
[2021-03-14 02:48] LABS: BUN/Creatinine Ratio 45 (6-26); Blood Urea Nitrogen 25 mg/dL (8-23); Calcium 8.4 mg/dL (8.6-10.3); Carbon Dioxide 27 mEq/L (23-29); Chloride 105 mEq/L (98-107); Glucose 117 mg/dL (70-105); Osmolality,Calculated 291 (280-300); Potassium 3.8 mEq/L (3.5-5.1); Sodium 138 mEq/L (136-145); eGFR For African Americans > 60 (> 60); eGFR For Non-African Americans > 60 (> 60)
[2021-03-14] MEDS: *HR* Enoxaparin 40 MG/0.4 ML SYRINGE SQ SCH (06:52)
[2021-03-14] MEDS: Lactobacillus 1 EACH CAP.SPRINK PO SCH (08:17)
[2021-03-14] MEDS: Cholestyramine 4 GM POWD.PACK PO SCH ×2 (08:17→19:40)
[2021-03-14] MEDS: QUEtiapine Fumarate 25 MG TABLET PO SCH ×3 (08:17→19:39)
[2021-03-14] MEDS: *HR* OxyCODONE/APAP 5/325 TABLET PO PRN (08:17)
[2021-03-14] MEDS: MethylPREDNISolone 40 MG/ML VIAL IVP SCH ×2 (08:18→19:40)
[2021-03-14] MEDS: Ondansetron 4 MG/2 ML VIAL IVP PRN (14:37)
[2021-03-15 03:43] LABS: Red Blood Count 3.33 M/mcL (3.82-4.97); White Blood Count 18.4 K/mcL (4.3-11.1)
[2021-03-15 03:44] LABS: Basophils # 0.1 K/mcL (0.0-0.2); Basophils % 0.3 %; Eosinophils # 0.2 K/mcL (0.0-0.6); Eosinophils % 0.9 %; Hematocrit 28.6 % (35.3-44.9); Hemoglobin 8.6 g/dL (11.5-15.4); Immature Granulocytes % 3.4 % (0-4); Lymphocytes # 1.8 K/mcL (0.6-4.6); Lymphocytes % 9.6 %; Mean Corpuscular HGB Conc 30.1 g/dL (31.6-35.5); Mean Corpuscular Hemoglobin 25.8 pg (28.0-33.3); Mean Corpuscular Volume 85.9 fL (83.0-100.0); Monocytes # 0.7 K/mcL (0.0-1.3); Platelet Count 332 K/mcL (140-400); Red Cell Distribution Width 16.2 % (11.5-14.5); Segmented Neutrophils % 81.8 %
[2021-03-15] MEDS: *HR* Enoxaparin 40 MG/0.4 ML SYRINGE SQ SCH (05:02)
[2021-03-15 07:23] LABS: BUN/Creatinine Ratio 46 (6-26); Blood Urea Nitrogen 25 mg/dL (8-23); Calcium 8.9 mg/dL (8.6-10.3); Carbon Dioxide 30 mEq/L (23-29); Chloride 108 mEq/L (98-107); Glucose 81 mg/dL (70-105); Osmolality,Calculated 297 (280-300); Potassium 4.1 mEq/L (3.5-5.1); Sodium 142 mEq/L (136-145); eGFR For African Americans > 60 (> 60); eGFR For Non-African Americans > 60 (> 60)
[2021-03-15] MEDS: QUEtiapine Fumarate 25 MG TABLET PO SCH ×3 (09:03→19:44)
[2021-03-15] MEDS: MethylPREDNISolone 40 MG/ML VIAL IVP SCH (09:03)
[2021-03-15] MEDS: Lactobacillus 1 EACH CAP.SPRINK PO SCH (09:03)
[2021-03-15] MEDS: Ondansetron 4 MG/2 ML VIAL IVP PRN (12:22)
[2021-03-15] MEDS: Cholestyramine 4 GM POWD.PACK PO SCH ×2 (13:24→18:23)
[2021-03-15] MEDS: Melatonin 3 MG TABLET PO PRN (22:01)
[2021-03-16 01:42] LABS: Basophils # 0.1 K/mcL (0.0-0.2); Basophils % 0.3 %; Eosinophils % 4.9 %; Hematocrit 28.8 % (35.3-44.9); Hemoglobin 8.6 g/dL (11.5-15.4); Immature Granulocytes % 2.9 % (0-4); Lymphocytes # 2.6 K/mcL (0.6-4.6); Lymphocytes % 13.4 %; Mean Corpuscular HGB Conc 29.9 g/dL (31.6-35.5); Mean Corpuscular Hemoglobin 25.9 pg (28.0-33.3); Mean Corpuscular Volume 86.7 fL (83.0-100.0); Mean Platelet Volume 10.4 fL (9.4-12.4); Monocytes # 0.9 K/mcL (0.0-1.3); Monocytes % 4.7 %; Neutrophils # 14.5 K/mcL (1.6-8.9); Platelet Count 327 K/mcL (140-400); Red Blood Count 3.32 M/mcL (3.82-4.97); Red Cell Distribution Width 16.7 % (11.5-14.5); Segmented Neutrophils % 73.8 %; White Blood Count 19.6 K/mcL (4.3-11.1)
[2021-03-16 02:07] LABS: BUN/Creatinine Ratio 49 (6-26); Blood Urea Nitrogen 27 mg/dL (8-23); Calcium 8.7 mg/dL (8.6-10.3); Carbon Dioxide 27 mEq/L (23-29); Chloride 106 mEq/L (98-107); Glucose 115 mg/dL (70-105); Magnesium 1.9 mg/dL (1.6-2.6); Osmolality,Calculated 296 (280-300); Phosphorous 3.1 mg/dL (2.7-4.5); Potassium 4.3 mEq/L (3.5-5.1); Sodium 140 mEq/L (136-145); eGFR For African Americans > 60 (> 60); eGFR For Non-African Americans > 60 (> 60)
[2021-03-16] MEDS: *HR* Enoxaparin 40 MG/0.4 ML SYRINGE SQ SCH (05:46)
[2021-03-16 06:41] LABS: Pancreatic Elastase, Fecal 611 ug/g (>=100)
[2021-03-16] MEDS: QUEtiapine Fumarate 25 MG TABLET PO SCH ×3 (08:02→19:56)
[2021-03-16] MEDS: Lactobacillus 1 EACH CAP.SPRINK PO SCH (08:02)
[2021-03-16] MEDS ORDERED: predniSONE 20 MG TABLET PO SCH (09:00)
[2021-03-16] MEDS: Ondansetron 4 MG/2 ML VIAL IVP PRN (10:03)
[2021-03-16] MEDS: Cholestyramine 4 GM POWD.PACK PO SCH ×2 (14:11→18:03)
[2021-03-16] MEDS: Gabapentin 300 MG CAPSULE PO SCH (19:56)
[2021-03-16] MEDS: Furosemide 20 MG/2 ML VIAL IVP SCH (19:56)
[2021-03-17] MEDS: *HR* Enoxaparin 40 MG/0.4 ML SYRINGE SQ SCH (05:30)
[2021-03-17 06:17] LABS: Basophils # 0.1 K/mcL (0.0-0.2); Basophils % 0.5 %; Eosinophils # 1.2 K/mcL (0.0-0.6); Eosinophils % 6.7 %; Hematocrit 30.2 % (35.3-44.9); Immature Granulocytes % 2.7 % (0-4); Lymphocytes # 3.2 K/mcL (0.6-4.6); Mean Corpuscular HGB Conc 29.8 g/dL (31.6-35.5); Mean Corpuscular Hemoglobin 25.7 pg (28.0-33.3); Mean Corpuscular Volume 86.3 fL (83.0-100.0); Mean Platelet Volume 10.3 fL (9.4-12.4); Monocytes % 5.3 %; Neutrophils # 12.6 K/mcL (1.6-8.9); Platelet Count 336 K/mcL (140-400); Red Cell Distribution Width 16.6 % (11.5-14.5); Segmented Neutrophils % 67.8 %; White Blood Count 18.5 K/mcL (4.3-11.1)
[2021-03-17 06:36] LABS: BUN/Creatinine Ratio 43 (6-26); Blood Urea Nitrogen 24 mg/dL (8-23); Calcium 9.1 mg/dL (8.6-10.3); Carbon Dioxide 29 mEq/L (23-29); Chloride 102 mEq/L (98-107); Glucose 79 mg/dL (70-105); Magnesium 1.9 mg/dL (1.6-2.6); Osmolality,Calculated 285 (280-300); Phosphorous 3.8 mg/dL (2.7-4.5); Potassium 4.9 mEq/L (3.5-5.1); Sodium 136 mEq/L (136-145); eGFR For African Americans > 60 (> 60); eGFR For Non-African Americans > 60 (> 60)
[2021-03-17] MEDS ORDERED: predniSONE 20 MG TABLET PO SCH (09:00)
[2021-03-17] MEDS: Gabapentin 300 MG CAPSULE PO SCH ×3 (09:29→20:37)
[2021-03-17] MEDS: Lactobacillus 1 EACH CAP.SPRINK PO SCH (09:29)
[2021-03-17] MEDS: predniSONE 20 MG TABLET PO SCH (09:30)
[2021-03-17] MEDS: QUEtiapine Fumarate 25 MG TABLET PO SCH ×3 (09:30→20:36)
[2021-03-17] MEDS: Furosemide 20 MG/2 ML VIAL IVP SCH (09:31)
[2021-03-17] MEDS: Cholestyramine 4 GM POWD.PACK PO SCH ×2 (12:21→18:01)
[2021-03-18] MEDS: Ipratropium/Albuterol Neb 3 ML IH PRN (04:33)
[2021-03-18 05:26] LABS: Basophils # 0.1 K/mcL (0.0-0.2); Basophils % 0.4 %; Eosinophils # 0.5 K/mcL (0.0-0.6); Eosinophils % 2.8 %; Hematocrit 30.4 % (35.3-44.9); Hemoglobin 9.1 g/dL (11.5-15.4); Immature Granulocytes % 2.9 % (0-4); Lymphocytes # 2.6 K/mcL (0.6-4.6); Lymphocytes % 14.7 %; Mean Corpuscular HGB Conc 29.9 g/dL (31.6-35.5); Mean Corpuscular Hemoglobin 25.7 pg (28.0-33.3); Mean Corpuscular Volume 85.9 fL (83.0-100.0); Mean Platelet Volume 10.7 fL (9.4-12.4); Monocytes % 5.6 %; Neutrophils # 13.1 K/mcL (1.6-8.9); Platelet Count 345 K/mcL (140-400); Red Blood Count 3.54 M/mcL (3.82-4.97); Red Cell Distribution Width 16.4 % (11.5-14.5); Segmented Neutrophils % 73.6 %; White Blood Count 17.8 K/mcL (4.3-11.1)
[2021-03-18] MEDS: *HR* Enoxaparin 40 MG/0.4 ML SYRINGE SQ SCH (05:42)
[2021-03-18 05:46] LABS: BUN/Creatinine Ratio 62 (6-26); Blood Urea Nitrogen 33 mg/dL (8-23); Calcium 9.2 mg/dL (8.6-10.3); Chloride 104 mEq/L (98-107); Glucose 90 mg/dL (70-105); Osmolality,Calculated 295 (280-300); Potassium 3.9 mEq/L (3.5-5.1); Sodium 139 mEq/L (136-145); eGFR For African Americans > 60 (> 60); eGFR For Non-African Americans > 60 (> 60)
[2021-03-18 06:17] LABS: Carbon Dioxide 28 mEq/L (23-29)
[2021-03-18] MEDS: QUEtiapine Fumarate 25 MG TABLET PO SCH ×3 (09:26→21:24)
[2021-03-18] MEDS: Lactobacillus 1 EACH CAP.SPRINK PO SCH (09:26)
[2021-03-18] MEDS: predniSONE 20 MG TABLET PO SCH (09:26)
[2021-03-18] MEDS: Gabapentin 300 MG CAPSULE PO SCH ×3 (09:28→21:25)
[2021-03-18] MEDS: Furosemide 20 MG/2 ML VIAL IVP SCH (11:47)
[2021-03-18] MEDS: Cholestyramine 4 GM POWD.PACK PO SCH ×2 (12:13→17:45)
[2021-03-18] MEDS ORDERED: *HR* LORazepam 2 MG/ML VIAL IVP PRN (17:39)
[2021-03-19 05:17] LABS: Basophils % 0.2 %; Eosinophils # 1.1 K/mcL (0.0-0.6); Eosinophils % 6.4 %; Hemoglobin 9.5 g/dL (11.5-15.4); Immature Granulocytes % 2.2 % (0-4); Lymphocytes # 3.7 K/mcL (0.6-4.6); Lymphocytes % 20.6 %; Mean Corpuscular HGB Conc 30.6 g/dL (31.6-35.5); Mean Corpuscular Hemoglobin 25.5 pg (28.0-33.3); Mean Corpuscular Volume 83.3 fL (83.0-100.0); Mean Platelet Volume 9.7 fL (9.4-12.4); Monocytes # 1.1 K/mcL (0.0-1.3); Monocytes % 6.2 %; Neutrophils # 11.4 K/mcL (1.6-8.9); Platelet Count 347 K/mcL (140-400); Red Blood Count 3.72 M/mcL (3.82-4.97); Red Cell Distribution Width 16.6 % (11.5-14.5); Segmented Neutrophils % 64.4 %; White Blood Count 17.7 K/mcL (4.3-11.1)
[2021-03-19 05:39] LABS: BUN/Creatinine Ratio 57 (6-26); Blood Urea Nitrogen 30 mg/dL (8-23); Carbon Dioxide 27 mEq/L (23-29); Chloride 101 mEq/L (98-107); Glucose 79 mg/dL (70-105); Magnesium 1.9 mg/dL (1.6-2.6); Osmolality,Calculated 287 (280-300); Sodium 136 mEq/L (136-145); eGFR For African Americans > 60 (> 60); eGFR For Non-African Americans > 60 (> 60)
[2021-03-19] MEDS: *HR* Enoxaparin 40 MG/0.4 ML SYRINGE SQ SCH (06:55)
[2021-03-19] MEDS: predniSONE 20 MG TABLET PO SCH (07:56)
[2021-03-19] MEDS: Gabapentin 300 MG CAPSULE PO SCH ×3 (08:03→22:00)
[2021-03-19] MEDS: QUEtiapine Fumarate 25 MG TABLET PO SCH ×3 (08:03→22:00)
[2021-03-19] MEDS: Lactobacillus 1 EACH CAP.SPRINK PO SCH (08:04)
[2021-03-19] MEDS: Furosemide 20 MG/2 ML VIAL IVP SCH (10:40)
[2021-03-19] MEDS: Cholestyramine 4 GM POWD.PACK PO SCH ×2 (13:54→20:02)
[2021-03-19] MEDS: Nystatin SUSP 5 ML UD.LIQ PO SCH ×3 (13:55→22:00)
[2021-03-20] MEDS: *HR* Enoxaparin 40 MG/0.4 ML SYRINGE SQ SCH (05:10)
[2021-03-20 09:46] LABS: ABG Base Excess 2 mEq/L (-2 to 3); ABG HCO3 26 mEq/L (21-27); ABG Oxygen Saturation 95 % (95-98); ABG PCO2 37 mmHg (35-45); ABG PH 7.46 pH Units (7.32-7.45); ABG PO2 70 mmHg (85-104); ABG TCO2 27 mEq/L (20-26)
[2021-03-20] MEDS: Nystatin SUSP 5 ML UD.LIQ PO SCH ×4 (10:23→21:47)
[2021-03-20] MEDS: QUEtiapine Fumarate 25 MG TABLET PO SCH ×3 (10:23→21:47)
[2021-03-20] MEDS: Lactobacillus 1 EACH CAP.SPRINK PO SCH (10:24)
[2021-03-20] MEDS: Gabapentin 300 MG CAPSULE PO SCH ×3 (10:24→21:47)
[2021-03-20] MEDS: predniSONE 20 MG TABLET PO SCH (10:24)
[2021-03-20] MEDS: Nystatin Cream 15 GM TUBE TP SCH ×2 (10:28→21:52)
[2021-03-20] MEDS: Cholestyramine 4 GM POWD.PACK PO SCH ×2 (14:07→18:44)
[2021-03-20] MEDS: Furosemide 20 MG/2 ML VIAL IVP SCH (15:21)
[2021-03-20] MEDS: Budesonide/Formoterol 160/4.5 1 PUFF INH IH SCH (20:21)
[2021-03-20] MEDS: Doxycycline 100 MG CAPSULE PO SCH (21:47)
[2021-03-21] MEDS: *HR* Enoxaparin 40 MG/0.4 ML SYRINGE SQ SCH (05:41)
[2021-03-21] MEDS: Budesonide/Formoterol 160/4.5 1 PUFF INH IH SCH ×2 (07:43→21:41)
[2021-03-21] MEDS: Lactobacillus 1 EACH CAP.SPRINK PO SCH (08:23)
[2021-03-21] MEDS: QUEtiapine Fumarate 25 MG TABLET PO SCH ×3 (08:24→22:37)
[2021-03-21] MEDS: Doxycycline 100 MG CAPSULE PO SCH ×2 (08:24→22:37)
[2021-03-21] MEDS: Gabapentin 300 MG CAPSULE PO SCH ×3 (08:24→22:37)
[2021-03-21] MEDS: Furosemide 40 MG TABLET PO SCH (08:24)
[2021-03-21] MEDS: Nystatin SUSP 5 ML UD.LIQ PO SCH ×4 (08:24→22:36)
[2021-03-21] MEDS: predniSONE 20 MG TABLET PO SCH (08:24)
[2021-03-21] MEDS: Nystatin Cream 15 GM TUBE TP SCH ×2 (08:34→22:37)
[2021-03-21] MEDS: Cholestyramine 4 GM POWD.PACK PO SCH ×2 (11:56→19:49)
[2021-03-22] MEDS: *HR* Enoxaparin 40 MG/0.4 ML SYRINGE SQ SCH (06:31)
[2021-03-22 06:54] LABS: Basophils # 0.1 K/mcL (0.0-0.2); Basophils % 0.4 %; Eosinophils # 0.3 K/mcL (0.0-0.6); Eosinophils % 1.8 %; Hematocrit 33.9 % (35.3-44.9); Hemoglobin 10.1 g/dL (11.5-15.4); Immature Granulocytes % 1.9 % (0-4); Lymphocytes # 3.7 K/mcL (0.6-4.6); Mean Corpuscular HGB Conc 29.8 g/dL (31.6-35.5); Mean Corpuscular Hemoglobin 25.2 pg (28.0-33.3); Mean Corpuscular Volume 84.5 fL (83.0-100.0); Mean Platelet Volume 10.1 fL (9.4-12.4); Monocytes # 0.8 K/mcL (0.0-1.3); Monocytes % 4.4 %; Neutrophils # 13.1 K/mcL (1.6-8.9); Platelet Count 359 K/mcL (140-400); Red Blood Count 4.01 M/mcL (3.82-4.97); Red Cell Distribution Width 16.1 % (11.5-14.5); Segmented Neutrophils % 71.5 %; White Blood Count 18.3 K/mcL (4.3-11.1)
[2021-03-22 07:15] LABS: BUN/Creatinine Ratio 59 (6-26); Blood Urea Nitrogen 37 mg/dL (8-23); Calcium 9.4 mg/dL (8.6-10.3); Carbon Dioxide 29 mEq/L (23-29); Chloride 104 mEq/L (98-107); Glucose 75 mg/dL (70-105); Magnesium 1.9 mg/dL (1.6-2.6); Osmolality,Calculated 297 (280-300); Phosphorous 3.1 mg/dL (2.7-4.5); Potassium 3.8 mEq/L (3.5-5.1); Sodium 140 mEq/L (136-145); eGFR For African Americans > 60 (> 60); eGFR For Non-African Americans > 60 (> 60)
[2021-03-22] MEDS: Budesonide/Formoterol 160/4.5 1 PUFF INH IH SCH ×2 (07:48→19:33)
[2021-03-22] MEDS: predniSONE 20 MG TABLET PO SCH (09:50)
[2021-03-22] MEDS: Gabapentin 300 MG CAPSULE PO SCH ×3 (09:50→21:04)
[2021-03-22] MEDS: Lactobacillus 1 EACH CAP.SPRINK PO SCH (09:50)
[2021-03-22] MEDS: Furosemide 40 MG TABLET PO SCH (09:50)
[2021-03-22] MEDS: Nystatin SUSP 5 ML UD.LIQ PO SCH ×4 (09:51→21:04)
[2021-03-22] MEDS: Doxycycline 100 MG CAPSULE PO SCH ×2 (09:51→21:04)
[2021-03-22] MEDS: Nystatin Cream 15 GM TUBE TP SCH ×2 (09:51→21:03)
[2021-03-22] MEDS: QUEtiapine Fumarate 25 MG TABLET PO SCH ×3 (09:51→21:04)
[2021-03-22] MEDS: Cholestyramine 4 GM POWD.PACK PO SCH ×2 (12:09→18:16)
[2021-03-22] MEDS: Melatonin 3 MG TABLET PO PRN (21:04)
[2021-03-23 02:58] LABS: Basophils % 0.3 %; Eosinophils # 0.3 K/mcL (0.0-0.6); Hematocrit 32.1 % (35.3-44.9); Hemoglobin 9.6 g/dL (11.5-15.4); Immature Granulocytes % 1.6 % (0-4); Lymphocytes # 2.8 K/mcL (0.6-4.6); Lymphocytes % 21.1 %; Mean Corpuscular HGB Conc 29.9 g/dL (31.6-35.5); Mean Corpuscular Hemoglobin 25.3 pg (28.0-33.3); Mean Corpuscular Volume 84.7 fL (83.0-100.0); Monocytes # 0.7 K/mcL (0.0-1.3); Monocytes % 5.1 %; Neutrophils # 9.4 K/mcL (1.6-8.9); Platelet Count 322 K/mcL (140-400); Red Blood Count 3.79 M/mcL (3.82-4.97); Red Cell Distribution Width 16.2 % (11.5-14.5); Segmented Neutrophils % 69.9 %; White Blood Count 13.5 K/mcL (4.3-11.1)
[2021-03-23 03:19] LABS: BUN/Creatinine Ratio 50 (6-26); Blood Urea Nitrogen 40 mg/dL (8-23); Calcium 9.5 mg/dL (8.6-10.3); Carbon Dioxide 28 mEq/L (23-29); Chloride 103 mEq/L (98-107); Glucose 94 mg/dL (70-105); Osmolality,Calculated 296 (280-300); Potassium 3.7 mEq/L (3.5-5.1); Sodium 138 mEq/L (136-145); eGFR For African Americans > 60 (> 60); eGFR For Non-African Americans > 60 (> 60)
[2021-03-23 03:26] LABS: Procalcitonin 0.06 ng/mL (0.00-0.15)
[2021-03-23 03:32] LABS: Thyroid Stimulating Hormone 1.092 mcIU/mL (0.340-5.600)
[2021-03-23 03:37] LABS: Ferritin 94 ng/mL (10-120)
[2021-03-23 03:42] LABS: Folate 6.4 ng/mL (3.0-16.0)
[2021-03-23] MEDS: *HR* Enoxaparin 40 MG/0.4 ML SYRINGE SQ SCH (05:20)
[2021-03-23] MEDS: Budesonide/Formoterol 160/4.5 1 PUFF INH IH SCH (07:21)
[2021-03-23] MEDS ORDERED: Iron Sucrose Complex 200 MG in 0.9 % Sodium Chloride 100 ML IVPB ONE (07:33)
[2021-03-23] MEDS: Nystatin Cream 15 GM TUBE TP SCH (09:00)
[2021-03-23] MEDS: Nystatin SUSP 5 ML UD.LIQ PO SCH ×2 (09:50→14:04)
[2021-03-23] MEDS: predniSONE 20 MG TABLET PO SCH (09:51)
[2021-03-23] MEDS: Doxycycline 100 MG CAPSULE PO SCH (09:52)
[2021-03-23] MEDS: Gabapentin 300 MG CAPSULE PO SCH ×2 (09:52→14:03)
[2021-03-23] MEDS: QUEtiapine Fumarate 25 MG TABLET PO SCH ×2 (09:52→14:04)
[2021-03-23] MEDS: Lactobacillus 1 EACH CAP.SPRINK PO SCH (09:52)
[2021-03-23] MEDS: Furosemide 40 MG TABLET PO SCH (09:53)
[2021-03-23 16:33] VITALS: BP 121/70
[2021-03-23] MEDS: Cholestyramine 4 GM POWD.PACK PO SCH (17:22)
== END 2021-03-23 19:49 | DRG 871 ==
LOC: 2NNU 17:58 → EMEROOARM 17:58 → SUATTDRO 03-05 01:30 → 2NNU 03-05 01:50 → SUATTDRO 03-05 17:01 → 2NENU 03-16 03:33
PROVIDERS: ADMIT Family Medicine; ATTEND Pharmacist